=== PATIENT | male | born 1955 | race Caucasian/White ===

== ENCOUNTER 2019-01-15 10:06 | Outpatient (CLI) | payer MEDICARE ==
--- NOTE | 2019-01-15 10:43 | RAD ---
THORACIC SPINE FIVE VIEWS: Indications: Mid and upper back pain. FINDINGS: Thoracic vertebrae maintain normal height and alignment as seen in the sagittal projection. Mild dege nerative osteophytes are seen through the thoracic vertebrae. No blastic or lytic lesion identified. IMPRESSION: There are mild degenerative changes of the thoracic spine. No acute abnormality. POS: [facility]
== END 2019-01-15 10:07 | disposition home or self-care (01) ==
LOC: SCSRAD 10:06
PROVIDERS: ATTEND Family Medicine
DX: M54.6 Pain in thoracic spine (principal); M47.814 Spondylosis without myelopathy or radiculopathy, thoracic region
CPT/HCPCS: 72072

== ENCOUNTER 2019-02-03 11:13 | Outpatient (CLI) | payer MEDICARE ==
--- NOTE | 2019-02-03 11:51 | RAD ---
FXR Knee Lt 4 View STANDARD History: [Left knee pain. M 25.562] Comparison: None. Findings: Mild medial compartment joint space narrowing. Moderate-sized tricompartment osteophytes, g reatest in the medial compartment and patellofemoral compartments. No acute fracture or malalignment. Trace joint effusion. Impression: Moderate medial and patellofemoral compartment degenerative disease. No acute abnormality .
== END 2019-02-03 11:14 | disposition home or self-care (01) ==
LOC: SCSRAD 11:13
PROVIDERS: ATTEND Family Medicine
DX: M25.562 Pain in left knee (principal); M17.12 Unilateral primary osteoarthritis, left knee

== ENCOUNTER 2019-03-31 14:46 | Emergency (ER) | payer MEDICARE ==
[2019-03-31] MEDS ORDERED: Ketorolac Tromethamine 30 MG/ML VIAL ONE (15:14)
[2019-03-31] MEDS ORDERED: Diazepam 5 MG TAB ONE (15:14)
[2019-03-31] MEDS ORDERED: Acetaminophen 500 MG TAB ONE (15:14)
== END 2019-03-31 16:00 | disposition home or self-care (01) ==
LOC: SCSER 14:46
DX: M54.5 Low back pain (principal); I10 Essential (primary) hypertension; E78.5 Hyperlipidemia, unspecified; Z79.899 Other long term (current) drug therapy
CPT/HCPCS: J1885

== ENCOUNTER 2019-04-01 08:12 | Inpatient (IN) | payer MEDICARE ==
[2019-04-01] MEDS ORDERED: Ketorolac Tromethamine 30 MG/ML VIAL ONE (08:36)
[2019-04-01] MEDS ORDERED: Morphine 4 MG/ML VIAL ONE ×2 (08:36→14:12)
[2019-04-01] MEDS ORDERED: ISOVUE-370 76%-LOCM 1 ML ONE (09:08)
[2019-04-01] MEDS ORDERED: Gadobenate Dimeglumine 529 MG/1 ML (20ML VIAL) ONE (09:09)
--- NOTE | 2019-04-01 09:27 | CT ---
CT lumbar spine history: Back pain. Axial images are obtained with coronal and sagittal reconstructions. Vacuum disc changes with broad-based disc bulges seen at L4-5 and L5-S1. Disc degenerative changes ar e present at these levels. No evidence of acute lumbar spine abnormality seen. IMPRESSION: no evidence of acute lumbar spine fractures or bony lesions.
--- NOTE | 2019-04-01 09:30 | CT ---
Noncontrast enhanced CT thoracic spine: HISTORY: 63-year-old with lower to mid back pain. Axial images are obtained with coronal and sagittal reconstructions FINDINGS: There is partial compression fracture of the T9 vertebral body. There is near complete replacement of the T9 vertebral body as well as the left T9 pedicle extending into the posterior elements of the T9 vertebral level. The bones of this vertebral level appear to been replaced by soft tissue material which is expanding and destroying the T9 vertebra and left pedicle. This is concerning for metastatic disease. There appears to be compression of the thecal sac and severe spinal stenosis due to the soft tissue component of the T9 vertebra which extends posteriorly compressing the thecal sac and spinal cord. IMPRESSION: Expansile lytic T9 lesion. Neurosurgical consultation is recommended. Findings called to Dr. Lopez at 9:29 AM on 04/01/2019. Code CR Transcribed Date/Time: 04/01/2019 9:51 AM
[2019-04-01 10:15] LABS: #Basophils 0.1 thou/uL (0.0-0.2); #Lymphocytes 1.2 thou/uL (1.20-3.40); #Monocytes 0.7 thou/uL (0.11-0.59); #Neutrophils 11.5 thou/uL (1.40-6.50); %Basophils 0.6 % (0.0-1.0); %Eosinophils 0.1 % (0.0-10.0); %Lymphocytes 8.6 % (21.0-51.0); %Monocytes 5.3 % (0.0-10.0); %Neutrophils 85.3 % (42.0-75.0); Hemoglobin 14.3 g/dL (14.0-18.0); Mean Corpuscular HGB CONC 33.4 g/dL (32.0-36.0); Mean Corpuscular Hemoglobin 30.6 pg (27.0-31.0); Mean Corpuscular Volume 91.5 fL (78.0-98.0); Platelet Count 333 thou/uL (130-400); RBC Distribution Width 11.8 % (11.5-14.5); Red Blood Cell (RBC) Count 4.69 mill/uL (4.70-6.10); White Blood Cell (WBC) Count 13.5 thou/uL (4.8-10.8)
[2019-04-01 10:23] LABS: PTT 25.9 SEC (22.9-36.1); Prothrombin Time 13.5 SEC (12.0-14.7)
[2019-04-01 10:27] LABS: Anion Gap 14 mmol/L (10-20); BUN (Urea Nitrogen) 14 mg/dL (8.4-25.7); Calc. Creatinine Clearance 0 mL/min (70-130); Calcium 10.7 mg/dL (7.8-10.44); Carbon Dioxide 27 mmol/L (23-31); Chloride 103 mmol/L (98-107); Estimated GFR-MDRD Greater than 90; Glucose 120 mg/dL (80-115); Potassium 3.9 mmol/L (3.5-5.1); Sodium 140 mmol/L (136-145)
--- NOTE | 2019-04-01 12:31 | PDOC.GSCN ---
Surgery Consult: Results - Labs Result Diagrams: 04/01/19 10:08 04/01/19 10:08 Lab results: Laboratory Results WBC 13.5 thou/uL (4.8-10.8) H 04/01/19 10:08 RBC 4.69 mill/uL (4.70-6.10) L 04/01/19 10:08 Hgb 14.3 g/dL (14.0-18.0) 04/01/19 10:08 Hct 42.9 % (42.0-52.0) 04/01/19 10:08 MCV 91.5 fL (78.0-98.0) 04/01/19 10:08 MCH 30.6 pg (27.0-31.0) 04/01/19 10:08 MCHC 33.4 g/dL (32.0-36.0) 04/01/19 10:08 RDW 11.8 % (11.5-14.5) 04/01/19 10:08 Plt Count 333 thou/uL (130-400) 04/01/19 10:08 MPV 7.0 fL (7.4-10.4) L 04/01/19 10:08 Neutrophils % 85.3 % (42.0-75.0) H 04/01/19 10:08 Lymphocytes % 8.6 % (21.0-51.0) L 04/01/19 10:08 Monocytes % 5.3 % (0.0-10.0) 04/01/19 10:08 Eosinophils % 0.1 % (0.0-10.0) 04/01/19 10:08 Basophils % 0.6 % (0.0-1.0) 04/01/19 10:08 Neutrophils # 11.5 thou/uL (1.40-6.50) H 04/01/19 10:08 Lymphocytes # 1.2 thou/uL (1.20-3.40) 04/01/19 10:08 Monocytes # 0.7 thou/uL (0.11-0.59) H 04/01/19 10:08 Eosinophils # 0.0 thou/uL (0.0-0.7) 04/01/19 10:08 Basophils # 0.1 thou/uL (0.0-0.2) 04/01/19 10:08 PT 13.5 SEC (12.0-14.7) 04/01/19 10:08 INR 1.0 04/01/19 10:08 APTT 25.9 SEC (22.9-36.1) 04/01/19 10:08 Sodium 140 mmol/L (136-145) 04/01/19 10:08 Potassium 3.9 mmol/L (3.5-5.1) 04/01/19 10:08 Chloride 103 mmol/L (98-107) 04/01/19 10:08 Carbon Dioxide 27 mmol/L (23-31) 04/01/19 10:08 Anion Gap 14 mmol/L (10-20) 04/01/19 10:08 BUN 14 mg/dL (8.4-25.7) 04/01/19 10:08 Creatinine 0.72 mg/dL (0.7-1.3) 04/01/19 10:08 Estimated GFR (MDRD) Greater than 90 04/01/19 10:08 Glucose 120 mg/dL (80-115) H 04/01/19 10:08 Calcium 10.7 mg/dL (7.8-10.44) H 04/01/19 10:08
[2019-04-01] MEDS ORDERED: Lorazepam 2 MG/ML VIAL ONE (12:34)
--- NOTE | 2019-04-01 12:40 | PDOC.GSCN ---
Surgery Consult: HPI - Consult details Date: 04/01/19 Time: 11:00 History of present illness: 04/01/19 12:35 patient is a 63 yo male presenting with centralized back pain since january, he was treated with PT and pain improved. of last week patient had severe back pain following a sneeze which progressively worsened until he presented to the ER yesterday. He was d/c and then returned to the ER today in [facility]. Pain is worse on back extension with anterior radiation and improved by laying supine. associated symptoms include increasing nocturia over the last 4 days. No bowel/bladder incontinence, parasthesias, or paralysis Surgery Consult: ROS - Review of Systems Gastrointestinal: denies: fecal incontinence Musculoskeletal: reports: limited range of motion. denies: muscle weakness, neck pain, numbness, radiating pain into limb, tingling Neurologial: denies: numbness, paresthesias, radicular pain Surgery Consult: [facility] Past Medical History: HTN hemachromatosis Past Surgical History: knee arthroplasty X3 for torn meniscus - Past Family History Pertinent family history: mother of lung cancer Surgery Consult: Exam - Vital signs Vital signs: BP 173/112 otherwise unremarkable - Physical Exam General: moderate pain Neurologic: normal coordination, normal sensation (CN 2-12 intact and sym bilaterally, strength 5/5 UE/LE sensation intact and sym bilaterally.) Surgery Consult: Meds - Allergies Allergies/Adverse Reactions: Allergies Allergy/AdvReac Type Severity Reaction Status Date / Time Penicillins Allergy Verified 04/01/19 20:15 Surgery Consult: Results - Labs Result Diagrams: 04/02/19 05:34 04/02/19 05:34 Lab results: Laboratory Results WBC 13.5 thou/uL (4.8-10.8) H 04/01/19 10:08 RBC 4.69 mill/uL (4.70-6.10) L 04/01/19 10:08 Hgb 14.3 g/dL (14.0-18.0) 04/01/19 10:08 Hct 42.9 % (42.0-52.0) 04/01/19 10:08 MCV 91.5 fL (78.0-98.0) 04/01/19 10:08 MCH 30.6 pg (27.0-31.0) 04/01/19 10:08 MCHC 33.4 g/dL (32.0-36.0) 04/01/19 10:08 RDW 11.8 % (11.5-14.5) 04/01/19 10:08 Plt Count 333 thou/uL (130-400) 04/01/19 10:08 MPV 7.0 fL (7.4-10.4) L 04/01/19 10:08 Neutrophils % 85.3 % (42.0-75.0) H 04/01/19 10:08 Lymphocytes % 8.6 % (21.0-51.0) L 04/01/19 10:08 Monocytes % 5.3 % (0.0-10.0) 04/01/19 10:08 Eosinophils % 0.1 % (0.0-10.0) 04/01/19 10:08 Basophils % 0.6 % (0.0-1.0) 04/01/19 10:08 Neutrophils # 11.5 thou/uL (1.40-6.50) H 04/01/19 10:08 Lymphocytes # 1.2 thou/uL (1.20-3.40) 04/01/19 10:08 Monocytes # 0.7 thou/uL (0.11-0.59) H 04/01/19 10:08 Eosinophils # 0.0 thou/uL (0.0-0.7) 04/01/19 10:08 Basophils # 0.1 thou/uL (0.0-0.2) 04/01/19 10:08 PT 13.5 SEC (12.0-14.7) 04/01/19 10:08 INR 1.0 04/01/19 10:08 APTT 25.9 SEC (22.9-36.1) 04/01/19 10:08 Sodium 140 mmol/L (136-145) 04/01/19 10:08 Potassium 3.9 mmol/L (3.5-5.1) 04/01/19 10:08 Chloride 103 mmol/L (98-107) 04/01/19 10:08 Carbon Dioxide 27 mmol/L (23-31) 04/01/19 10:08 Anion Gap 14 mmol/L (10-20) 04/01/19 10:08 BUN 14 mg/dL (8.4-25.7) 04/01/19 10:08 Creatinine 0.72 mg/dL (0.7-1.3) 04/01/19 10:08 Estimated GFR (MDRD) Greater than 90 04/01/19 10:08 Glucose 120 mg/dL (80-115) H 04/01/19 10:08 Calcium 10.7 mg/dL (7.8-10.44) H 04/01/19 10:08 - Radiology Interpretation Other Additional comments: non contrast CT of T spine shows mass in vertebral body of T9 with ext into L pedicle, suspicious for metastasis Surgery Consult: A/P - Problem (1) vertebral body mass Current Visit: Yes Status: Acute - Plan Plan: -T spine MRI with and without contrast -admit for oncology workup and pain management -consulted with Dr. Wheeler and Luna Montez
--- NOTE | 2019-04-01 14:01 | MRI ---
PRE AND POSTCONTRAST ENHANCED MRI IMAGES THORACIC SPINE: HISTORY: Thoracic pain. FINDINGS: Multiplanar multisequence pre and postcontrast enhanced MRI images demonstrate essential replacement of the T9 vertebral body by heterogeneously enhancing soft tissue mass. There is a large retropulsed soft tissue component measuring 1.8 cm superior inferiorly and approximately 10 mm anteri or posteriorly. This retropulsed fragment compresses the thecal sac. The vertebral body is diffusely enhancing. There is extension into the left T9 pedicle which is also expanded. There is mar ked narrowing of the left T9-10 neural foramen. There is also some heterogeneity seen in the superior endplate of T11. This also is concerning for a metastatic lesion much less pronounced than the T9 lesion. Differential diagnoses includes metastatic disease. IMPRESSION: Extensive replacement of the T9 vertebral body with a pathologic fracture compressing the thecal sac and spinal cord at T9. There also appears to be some signal abnormality in the superior endplate of T11. Transcribed Date/Time: 04/01/2019 2:05 PM
[2019-04-01 15:40] VITALS: BMI 28.0
[2019-04-01] MEDS ORDERED: Ondansetron ODT 4 MG TAB PO PRN (18:32)
[2019-04-01] MEDS ORDERED: Acetaminophen 650 MG Suppository PR PRN (18:32)
[2019-04-01] MEDS ORDERED: Ondansetron PF 4 MG/2 ML Vial IVP PRN (18:32)
[2019-04-01] MEDS: Morphine 2 MG/ML SYRINGE SLOW IVP PRN ×2 (18:59→22:19)
[2019-04-01] MEDS: Sodium Chloride 0.9% 1,000 ML IV SCH (19:00)
[2019-04-01 19:38] LABS: INR-International Normal Ratio 1.1; PTT 30.4 SEC (22.9-36.1); Prothrombin Time 14.1 SEC (12.0-14.7)
[2019-04-01 19:53] LABS: ALT (SGPT) 24 U/L (8-55); AST (SGOT) 19 U/L (5-34); Albumin 4.1 g/dL (3.4-4.8); Alkaline Phosphatase 111 U/L (40-150); Bilirubin, Direct 0.3 mg/dL (0.1-0.3); Bilirubin, Total 0.7 mg/dL (0.2-1.2); CK (CPK) 54 U/L (30-200); Protein, Total 7.9 g/dL (5.8-8.1)
[2019-04-01 20:04] LABS: Lipase Less than 32 U/L (8-78)
[2019-04-01] MEDS: Famotidine/PF 20 mg/2ml Vial SLOW IVP SCH (20:16)
[2019-04-01] MEDS: Atorvastatin Calcium 10 MG TAB PO SCH (20:35)
[2019-04-01] MEDS: Amlodipine 10 MG TAB PO SCH (20:35)
--- NOTE | 2019-04-01 23:21 | CT ---
CTA CHEST WITH CONTRAST: Date: 04/01/19 Multiple axial tomograms obtained through the chest with IV enhancement. INDICATION: Low oxygen saturation. Elevated D-Dimer. Chest pain. FINDINGS: Pulmonary arteries show adequate opacification. There is no evidence of pulmonary embolus identified. Review of lung goetz reveals a soft tissue mass density measuring 4.0 cm along the fissure right upp er lobe. This could represent an area of confluent consolidation; however, neoplasm cannot be exclude d. Close follow-up is recommended. There are small bilateral pleural effusions with mild bibasilar atelectasis, slightly more prominent on the right. Nonspecific mediastinal and hilar lymph nodes. Images through upper abdomen unremarkabl e. Evaluation of the bones show a lytic process involving the T10 vertebra with loss of height and retro pulsion. There is a soft tissue component. There is compression of the thecal sac and impingement on the cord resulting in moderate to severe central canal stenosis. IMPRESSION: 1. No evidence of pulmonary embolus. 2. Mass-like density in the right upper lobe along the fissure which is suspicious for neoplasm. 3. There is a lytic destructive process involving the T10 vertebra with soft tissue component and re tropulsion resulting in central canal stenosis. This finding would indicate a malignant process, prob ably metastasis. POS: [facility]
--- NOTE | 2019-04-01 23:51 | HP ---
CHIEF COMPLAINT: Intractable back pain. HISTORY OF PRESENT ILLNESS: is a pleasant 63-year-old man, with a history of ongoing progressively worsening back pain dating back to January 2019. The patient states he recalls a moment when he may have coughed or sneezed and had sudden severe mid thoracic back pain. Since that time, he reports having ongoing issues with back pain and being sent for physical therapy with some improvement following exercises and manipulations. The patient states every once in a while, the back pain is exacerbated suddenly and then improves. He had another episode of worsening on last week and states he again began to have another flare of his back pain on Sunday. He had mild improvement after going in for physical therapy, but his pain became more severe yesterday prompting him to go to the ER. He was seen and was sent home with advice to take Tylenol but had worsening pain this morning. He returned to the ER and this time underwent imaging including a CT scan of the thoracic and lumbar spine, which has demonstrated an expansile lytic T9 lesion. He was given morphine 8 mg and later on Toradol. The patient states his pain has been much better controlled as long as he lays flat and does not attempt to get up out of bed. He denies having any weakness, numbness, or tingling in any of his upper or lower extremities. He also denies having any urinary or bowel incontinence. No saddle anesthesia/paresthesia. Denies any lower extremity weakness. Overall, his only complaint is that of back pain with occasional spasming in the muscles of his back, mostly on the left, but at times on the right with occasional shooting pain down the left and right leg. The patient underwent an MRI of the spine and this has shown extensive replacement of the T9 vertebral body with a pathologic fracture compressing the thecal sac and spinal cord at T9. He was felt to possibly have metastases. He has been transferred and being admitted for further management of his back pain and investigations. Apparently, case has been discussed with Neurosurgery who advised Oncology consultation. REVIEW OF SYSTEMS: The patient states he has had significant weight loss with a total of 35 pounds loss in the last 10 weeks, which he attributes to a drastic change in his diet for intentional weight loss. He denies having any nausea, vomiting, or lack of appetite. Denies having any changes with his bowels except for occasional constipation attributed to reduced appetite in recent days or analgesics needed for control of his back pain. He denies having any again changes with sensation or weakness in any of his extremities. Also denies any loss of bladder or bowel incontinence; however, in the last couple of days, he has noted increased urinary frequency at night. Denies having any hematuria or dysuria. He has no issues with blood in the stools. Has not noted any thin caliber stools. No straining with bowel movements. No abdominal pain or cramping. No chest pain, palpitations, or shortness of breath. Denies any fevers, chills, or sweats. No headaches or dizziness. All other review of systems are negative. The patient did mention occasional pleuritic-type chest pain described as "sharp stabs" on his right lower lateral chest with deep inspiration. Denies any shortness of breath, cough, or hemoptysis. ALLERGIES: PENICILLIN. CURRENT MEDICATIONS: 1. Zantac. 2. Diclofenac. 3. Fish oil. 4. Multivitamin. 5. Atorvastatin. 6. Amlodipine. 7. Losartan. PAST MEDICAL HISTORY: 1. Hypertension. 2. Hypercholesterolemia. 3. Chronic back pain. PAST SURGICAL HISTORY: 1. Bilateral knee surgery. 2. Right shoulder surgery. 3. Right elbow surgery. SOCIAL HISTORY: The patient drinks alcohol occasionally on the weekends. Denies any illicit drug use. He also reports smoking occasionally in his 20s, but quit since then. PHYSICAL EXAMINATION: GENERAL: The patient appears well developed, well nourished, and is in no acute distress. He is resting comfortably, lying flat on the bed. VITAL SIGNS: Temperature 98.7, pulse 75, respirations 18, blood pressure 146/84, O2 saturation 93% on room air. HEENT: Normocephalic and atraumatic. Pupils are equal, round, and reactive to light. Sclerae are without icterus. Oropharynx is notable for dry mucosa with slight cheilitis of the lower lip. NECK: Supple without lymphadenopathy. LUNGS: Clear bilaterally. CARDIAC: Regular rate and rhythm. ABDOMEN: Soft, nontender, nondistended. Normoactive bowel sounds present. No guarding or rigidity. EXTREMITIES: No lower leg swelling or edema. MUSCULOSKELETAL: The patient with tenderness to the mid back. NEUROLOGIC: Power and sensation fully intact in upper and lower extremities. Able to straight leg raise against resistance and passive straight leg raise does not cause back pain. Full range of motion in all extremities. Reflexes intact. Alert and oriented x3. SKIN: No rash or jaundice. LABORATORY DATA: White blood count 13.5, hemoglobin 14.3, hematocrit 42.9, platelets 333. PT 13.5, INR 1.0, PTT 25.9. Sodium 140, potassium 3.9, chloride 103, anion gap 14, BUN 14, creatinine 0.72, GFR greater than 90, glucose 120, calcium 10.7. IMAGING DATA: As mentioned above in HPI. IMPRESSION AND PLAN: is a pleasant 63-year-old man being admitted for management of the following. 1. Back pain. The patient noted on imaging to have a lytic lesion/fracture involving vertebral body of T9 suspicious for metastasis. At present, his pain is under control. We will continue Toradol p.r.n. for [id number] pain and morphine 2 mg q.4 hours p.r.n. for severe back pain. At present, the patient wishes to avoid using any narcotics unless necessary due to fear of becoming constipated. Apparently, case has been discussed with Dr. Wheeler and Luna Montez. Oncology consult placed. 2. Leukocytosis. The patient afebrile. He did mention urinary frequency in the last 2 days. We will obtain urinalysis to rule out urine infection. We will add lactic acid and procalcitonin to labs. We will obtain LFTs as well. Continue to monitor for now. 3. Low saturations. The patient with low sats ranging from 90% to 93% on room air. He did mention occasional right lower pleuritic type chest pain with deep inspiration which he has noticed in the last couple of days. The patient has been more sedentary than normal due to the back pain. We will obtain a D-dimer, likely to be elevated given metastases and will request CT angiogram of the chest to rule out PE. 4. Hypertension. Resume home medications and monitor blood pressure. 5. Gastrointestinal prophylaxis. 6. Constipation. Senna p.r.n. and MiraLAX daily. Hold if he develops loose stools. 7. Deep venous thrombosis prophylaxis with mechanical SCDs. 8. Full code status. His surrogate decision maker would be his , Cinthia Hopkins. The patient's case was discussed with Dr. Whalen, who agrees with plan of care as described above. Job ID: [id number]
[2019-04-02] MEDS: Ketorolac Tromethamine 30 MG/ML VIAL IVP SCH ×5 (00:04→23:58)
[2019-04-02] MEDS: Morphine 2 MG/ML SYRINGE SLOW IVP PRN ×3 (02:51→10:27)
[2019-04-02 05:17] LABS: Bilirubin Negative (Negative); Blood, Urine Negative (Negative); Clarity CLEAR (Clear); Glucose, Urine (Dipstick) Negative (Negative); Leukocyte Negative (Negative); Nitrite Negative (Negative); Protein, Urine (Dipstick) Negative (Neg-Trace); Specific Gravity, Urine 1.044 (1.002-1.036); Urobilinogen 0.2 mg/dL (0.2-1.0); pH, Urine 5.5 (5.0-9.0)
[2019-04-02 05:29] LABS: Urine Culture Reflex No No
[2019-04-02 05:59] LABS: #Eosinphils 0.1 thou/uL (0.0-0.7); #Lymphocytes 1.5 thou/uL (1.20-3.40); #Monocytes 1.2 thou/uL (0.11-0.59); #Neutrophils 6.7 thou/uL (1.40-6.50); %Basophils 0.2 % (0.0-1.0); %Eosinophils 1.3 % (0.0-10.0); %Monocytes 12.9 % (0.0-10.0); %Neutrophils 69.5 % (42.0-75.0); Hemoglobin 13.6 g/dL (14.0-18.0); Mean Corpuscular HGB CONC 32.7 g/dL (32.0-36.0); Mean Corpuscular Hemoglobin 30.8 pg (27.0-31.0); Mean Corpuscular Volume 94.2 fL (78.0-98.0); Mean Platelet Volume 7.2 fL (7.4-10.4); Platelet Count 306 thou/uL (130-400); RBC Distribution Width 11.4 % (11.5-14.5); White Blood Cell (WBC) Count 9.6 thou/uL (4.8-10.8)
[2019-04-02 06:16] LABS: ALT (SGPT) 20 U/L (8-55); AST (SGOT) 16 U/L (5-34); Albumin 3.7 g/dL (3.4-4.8); Alkaline Phosphatase 104 U/L (40-150); Anion Gap 13 mmol/L (10-20); BUN (Urea Nitrogen) 15 mg/dL (8.4-25.7); Bilirubin, Total 0.6 mg/dL (0.2-1.2); Calc. Creatinine Clearance 138 mL/min (70-130); Calcium 10.1 mg/dL (7.8-10.44); Carbon Dioxide 27 mmol/L (23-31); Chloride 102 mmol/L (98-107); Estimated GFR-MDRD Greater than 90; Globulin 3.6 g/dL (2.4-3.5); Glucose 98 mg/dL (80-115); Potassium 3.7 mmol/L (3.5-5.1); Protein, Total 7.3 g/dL (5.8-8.1); Sodium 138 mmol/L (136-145)
[2019-04-02] MEDS: Losartan 25 MG TAB PO SCH (08:42)
[2019-04-02] MEDS: Famotidine/PF 20 mg/2ml Vial SLOW IVP SCH ×2 (08:42→20:13)
[2019-04-02] MEDS ORDERED: Amlodipine 10 MG TAB PO SCH (09:00)
[2019-04-02] MEDS ORDERED: Atorvastatin Calcium 10 MG TAB PO SCH (09:00)
[2019-04-02] MEDS: Sodium Chloride 0.9% 1,000 ML IV SCH ×2 (09:11→20:25)
[2019-04-02] MEDS: Polyethylene Glycol 3350 17 GM Packet PO SCH (09:13)
[2019-04-02] MEDS ORDERED: Morphine 4 MG/ML VIAL SLOW IVP SCH ×2 (11:45→13:45)
--- NOTE | 2019-04-02 12:19 | PRG ---
DATE OF SERVICE: 04/02/2019 I agree with consultation note by Annabel Marie MS3 on 04/01/2019. The patient presented recently for increase in mid back pain, which began gradually in January, but became significant over the weekend. Describes severe sharp stabbing pain in his mid back region. He has no classic radicular features, numbness, tingling, or weakness. Denies any bowel or bladder issues. His symptoms are significantly increased with standing, walking, and better when he lays flat. He had an MRI of the thoracic spine, which shows expansile lesion at T9 causing some central stenosis at this level, suspicious for a metastatic lesion. There is also some evidence of metastatic lesion at T11, but this is not causing any compressive abnormalities at this time. CT of the chest revealed a right-sided lung mass, suspicious for neoplasm. Oncology has been consulted and there are plans or CT guided biopsy of this lesion. On my exam this morning, the patient appears comfortable, lying flat in the bed. He has free active range of motion of all extremities. No focal motor weakness or reflex asymmetry. We tried to move or adjust the patient for just sit him up in bed, he has severe pain. With regard to the T9 lesion, we will fit the patient for TLSO brace, considering the vertebral body destruction. We will also ask Pain Management to get involved for assistance in his pain. We are being assisted as well with Oncology and we will ask Radiation Oncology as well for their thoughts on possible radiation oncology treatments for this lesion. No plans for acute NS intervention at this time. I have discussed this plan with Dr. Wheeler, who is in agreement. Job ID: [id number] MTDD
[2019-04-02] MEDS: Dexamethasone 4 mg/ml Vial SLOW IVP SCH ×3 (12:24→23:58)
[2019-04-02] MEDS ORDERED: Acetaminophen 1,000 MG in Premix Bag 1 BAG IVPB SCH (12:45)
[2019-04-02] MEDS ORDERED: Sodium Bicarbonate 2.5 MEQ/5 ML VIAL ONE (13:58)
--- NOTE | 2019-04-02 14:11 | PDOC.PN ---
- Subjective Encounter Start Date: 04/02/19 Encounter Start Time: 07:20 - Objective Resuscitation Status - Order Detail: 04/01/19 18:32 Resuscitation Status Routine Co-Sign Provider: Resuscitation Status: FULL: Full Resuscitation MAR Reviewed: Yes Vital Signs & Weight: Vital Signs (12 hours) Temp Pulse Resp BP Pulse Ox 04/02/19 12:50 99.2 F 89 16 137/81 92 L 04/02/19 08:23 98.5 F 88 16 144/83 H 93 L 04/02/19 08:00 93 L 04/02/19 04:42 98.5 F 84 16 151/85 H 92 L Weight Weight 190 lb 5 oz I&O: 04/01/19 04/02/19 04/03/19 06:59 06:59 06:59 Intake Total 100 Output Total 800 Balance -700 Result Diagrams: 04/02/19 05:34 04/02/19 05:34 Additional Labs: Labs reviewed by me Phys Exam - Physical Examination Constitutional: NAD HEENT: moist MMs, sclera anicteric, oral pharynx no lesions, 2+ tonsils Neck: no nodes, no JVD, supple, full ROM Respiratory: clear to auscultation bilateral Cardiovascular: RRR, no rub S1, S2 Gastrointestinal: soft, non-tender, no distention, positive bowel sounds Neurological: moves all 4 limbs Psychiatric: normal affect, A&O x 3 Dx/Plan (1) 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 Continue pain medications (2) Lung mass Code(s): R91.8 - OTHER NONSPECIFIC ABNORMAL FINDING OF LUNG FIELD Status: Acute Comment: Await biopsy (3) HTN (hypertension) Code(s): I10 - ESSENTIAL (PRIMARY) HYPERTENSION Status: Chronic Comment: continue amlodipine and losartan, monitor vital signs adn titrate antihypertensives as needed (4) Dyslipidemia Code(s): E78.5 - HYPERLIPIDEMIA, UNSPECIFIED Status: Chronic Comment: continue atorvastatin - Plan * . Review of Systems - Review of Systems Constitutional: negative: fever, chills, sweats, weakness, malaise Respiratory: negative: Cough, Shortness of Breath, SOB with Excertion, Pleuritic Pain, Wheezing Cardiovascular: negative: chest pain, palpitations, orthopnea, paroxysmal nocturnal dyspnea, edema, light headedness Gastrointestinal: negative: Nausea, Vomiting, Abdominal Pain, Diarrhea, Constipation, Melena, Hematochezia Genitourinary: negative: Dysuria, Frequency, Incontinence, Hematuria, Retention Musculoskeletal: Back Pain Skin: negative: Rash, Lesions, Mason, Bruising - Medications/Allergies Allergies/Adverse Reactions: Allergies Allergy/AdvReac Type Severity Reaction Status Date / Time Penicillins Allergy Verified 04/01/19 20:15 Medications: Current Medications Acetaminophen (Tylenol) 650 mg PO Q4H PRN PRN Reason: Headache/Fever/Mild Pain (1-3) Acetaminophen (Tylenol) 650 mg MO Q4H PRN PRN Reason: Headache/Fever/Mild Pain (1-3) Amlodipine Besylate (Norvasc) 10 mg PO HS [facility] Last Admin: 04/01/19 20:35 Dose: 10 mg Atorvastatin Calcium (Lipitor) 10 mg PO HS [facility] Last Admin: 04/01/19 20:35 Dose: 10 mg Dexamethasone (Decadron) 4 mg SLOW IVP Q6H [facility] Last Admin: 04/02/19 12:24 Dose: 4 mg Famotidine (Pepcid) 20 mg SLOW IVP Q12HR [facility] Last Admin: 04/02/19 08:42 Dose: 20 mg Sodium Chloride (Normal Saline 0.9%) 1,000 mls @ 75 mls/hr IV .[id number] [facility] Last Admin: 04/02/19 09:11 Dose: 1,000 mls Acetaminophen 1,000 mg/ Device 100 mls @ 400 mls/hr IVPB ONE [facility] Stop: 04/02/19 15:45 Morphine Sulfate 100 mg/ (Dextrose/Water) 100 mls @ 0 mls/hr IV INF [facility] Ketorolac Tromethamine (Toradol) 15 mg IVP Q6HR [facility] Stop: 04/06/19 23:59 Last Admin: 04/02/19 12:24 Dose: 15 mg Losartan Potassium (Cozaar) 50 mg PO DAILY [facility] Last Admin: 04/02/19 08:42 Dose: 50 mg Morphine Sulfate (Morphine) 4 mg SLOW IVP [facility] Stop: 04/02/19 21:00 Last Admin: 04/02/19 13:49 Dose: 4 mg Ondansetron HCl (Zofran Odt) 4 mg PO Q6H PRN PRN Reason: Nausea/Vomiting Ondansetron HCl (Zofran) 4 mg IVP Q6H PRN PRN Reason: Nausea/Vomiting Polyethylene Glycol (Miralax) 17 gm PO DAILY [facility] Last Admin: 04/02/19 09:13 Dose: Not Given Senna/Docusate Sodium (Senokot S) 2 tab PO BIDPRN PRN PRN Reason: Constipation Sodium Chloride (Flush - Normal Saline) 10 ml IVF Q12HR PRN PRN Reason: Saline Flush Sodium Chloride (Flush - Normal Saline) 10 ml IVF PRN PRN PRN Reason: Saline Flush
[2019-04-02] MEDS ORDERED: Sodium Chloride 0.9% 10 ML ONE (14:29)
[2019-04-02] MEDS ORDERED: Midazolam HCl 2 mg/2 ml Vial ONE (14:29)
--- NOTE | 2019-04-02 15:20 | CON ---
DATE OF CONSULTATION: 04/02/2019 CONSULTING PHYSICIAN: Patiist . REASON FOR CONSULTATION: Lung mass and metastatic lesion. HISTORY OF PRESENT ILLNESS: is a 63-year-old male, who presented to the hospital with subacute onset of back pain. He states that he has been hurting since January. Now, he got to the point where it is painful to walk. He can still walk without much problem. He had a workup, which showed a large metastatic lesion on T9 vertebra. He also has a right upper lobe lung mass. He has a very distant smoking history, having smoked between ages 16 and 23. He has no exposure history to speak of. He does have a family history of lung cancer in his mother, but he states his mother was a heavy smoker most of her life. He has had no hemoptysis or shortness of breath. PAST MEDICAL HISTORY: 1. Hemochromatosis. 2. Hypertension. 3. Hyperlipidemia. 4. Chronic back pain. PAST SURGICAL HISTORY: 1. Bilateral knee surgery. 2. Right shoulder surgery. 3. Right elbow surgery. SOCIAL HISTORY: Smoking history as outlined above. The patient very occasionally drinks alcohol. He is retired from sales. Again, has no exposure history. ALLERGIES: PENICILLIN. MEDICATIONS: Prior to admission, Zantac, diclofenac, fish oil, multivitamin, atorvastatin, amlodipine, losartan. REVIEW OF SYSTEMS: He has no fever, chills, nausea, vomiting, chest pain, hemoptysis, melena, hematochezia, hematuria, or dysuria. He has had intractable back pain and has had some difficulty walking. PHYSICAL EXAMINATION: VITAL SIGNS: Temperature 98.5, pulse 88, respirations 16, O2 saturation 93%, and blood pressure 144/83. GENERAL: He is awake and alert, and in no obvious distress, but does seem to be in discomfort from his back. HEENT: Pupils are reactive. Sclerae anicteric. Oropharynx clear. NECK: No palpable adenopathy. No JVD. No bruits. No thyromegaly. LUNGS: Clear without wheezing or rhonchi. CARDIAC: S1 and S2 regular without audible murmur. ABDOMEN: He has some pain to palpation in right upper quadrant, but I think this is from pressure applied through to his T9 lesion. EXTREMITIES: No clubbing, cyanosis, or edema. NEUROLOGIC: He can move lower extremities without much difficulty or pain. Sensation is fully intact throughout. LABORATORY DATA: White blood cell count 9.6, hematocrit 41.5, and platelet count 306. D-dimer 5.5, sodium 138, potassium 3.7, chloride 102, CO2 of 27, BUN 15, creatinine 0.6, and glucose 98. IMAGING STUDIES: I reviewed the CT of the chest in detail. He has a fairly substantial lesion in the right upper lobe, probably the most inferior portion of the right upper lobe. He also has the metastatic lesion. ASSESSMENT: Metastatic lung cancer with metastasis to the T-spine. RECOMMENDATIONS: Discussed with Radiology. We would like to try a CT needle biopsy of T9 lesion, so that we can prove metastatic disease and probably give a larger tissue sample for molecular genetics. The patient is agreeable to proceed. Job ID: [id number]
[2019-04-02] MEDS: Morphine Sulfate 100 MG in Dextrose 5% in Water 98 ML IV SCH (15:24)
--- NOTE | 2019-04-02 15:35 | CT ---
CT GUIDED T9 VERTEBRAL BODY BIOPSY: CLINICAL HISTORY: Lytic lesion of T9 vertebra. PROCEDURE: Informed consent was obtained and the patient was escorted to the procedural suite, placed in semipro ne position. Conscious sedation for a total of 45 minutes was performed, administered by the radiology nurse, with the patient consistently monitored throughout the duration of the exam in stabl e condition. The patient's skin was prepped and draped in a standard sterile fashion and topical anesthesia with buffered 1% lidocaine was performed. After a small skin incision was made, an 18-gaug e needle were advanced to the leading edge of the posterior left T9 vertebral body margin. After adequate placement was confirmed with CT fluoroscopic imaging, 3 subsequent core specimens were obtai soni via percutaneous biopsy. These were confirmed with CT fluoroscopic imaging and the specimens were submitted to the pathologist for adequacy. Specimens were deemed adequate for interpretation. Th erefore, all devices were then removed from the patient. No unexpected procedural complications were present. The patient was monitored in radiology holding i n stable condition prior to discharge with family member. IMPRESSION: Technically successful percutaneous T9 vertebral body biopsy. Pathology results are pending.
--- NOTE | 2019-04-02 16:11 | PRG ---
DATE OF SERVICE: 04/02/2019 SUBJECTIVE: The patient was seen and examined. The patient is a 63-year-old male, who had been having mid back pain since January of this year. This has become progressively agonizing and severe. Ultimately, he was evaluated in the emergency room yesterday. He has now had CT scan and MRI of the thoracic spine as well as CT of the chest, abdomen, and pelvis. The patient is neurologically intact and the pain that he is having is thoracic and now neurogenically mediated. The patient's imaging reveals an expansile lesion of the T9 vertebrae, undoubtedly metastasis. There is meaningful central stenosis. There is also a lesion at T11, which is much more modest, that likely also represents metastasis. CT of the chest reveals a lung lesion, consistent with neoplasm. IMPRESSION AND PLAN: Metastatic lung cancer. The T9 metastasis causing agonizing pain, but no neurologic deficit. I do not see a clear role for surgery here and I do not think surgery will alleviate any pain. The pain is likely related to instability from the lesion. With regard to the T9 lesion, we will fit him for a TLSO brace that will hopefully allow him to mobilize with less pain and we will also consult Pain Management. I expect that ultimately the treatment for the T9 and T11 lesions will be radiation therapy. Surgery will be reserved for any new neurologic deficit. With respect to the overall oncologic workup, I will defer to Oncology and Radiation Oncology for lung biopsy. Job ID: [id number]
--- NOTE | 2019-04-02 16:48 | CON ---
DATE OF CONSULTATION: REASON FOR CONSULT: Lung mass with T9 lesion. HISTORY OF PRESENT ILLNESS: is a pleasant 63-year-old gentleman, who has had progressively worse back pain since January of 2019. He had severe pain this past few days and presented to the emergency room in [place] for evaluation. He underwent a CT scan of the lumbar and thoracic spine. There was partial compression fracture of the T9 vertebral body. There was complete replacement of the T9 body and pedicle with a soft tissue mass. Severe spinal stenosis was noted. Neurosurgery was consulted, and is planning no surgical intervention. The patient has no neurological deficits. He had an elevated D-dimer in the emergency room, so underwent a CT angio of the chest. There was no evidence of pulmonary embolus. There was a mass-like density in the right upper lobe along the fissure. It was suspicious for malignancy. The patient has a remote history of smoking, quit over 40 years ago. He has had a 35-pound weight loss since January. Denies any shortness of breath. No chest pain. No abdominal discomfort. No numbness, tingling, or neurological deficits. No difficulty voiding or with BMs. He does complain of severe stabbing pain, and his thoracic region is 10/10. Of note, the patient has a history of hereditary hemochromatosis diagnosed in 1996. He has been compliant with phlebotomy, donating blood usually 4 to 5 times annually. He states his last ferritin was around 48. PAST MEDICAL HISTORY: 1. Hypertension. 2. High cholesterol. 3. Hemochromatosis. 4. Chronic back pain. PAST SURGICAL HISTORY: 1. Bilateral knee replacement. 2. Right shoulder surgery. 3. Right elbow surgery. ALLERGIES: TO PENICILLIN. HOME MEDICATIONS: 1. Norvasc 10 mg daily. 2. Atorvastatin 10 mg daily. 3. Diclofenac 50 mg b.i.d. 4. Losartan 50 mg daily. 5. MVI daily. 6. Zantac 150 mg b.i.d. FAMILY HISTORY: Mother had lung cancer. Sister had breast cancer. SOCIAL HISTORY: He is . Social drinker. No illicit drug use. Smoked occasionally in his 20s, none since. REVIEW OF SYSTEMS: Ten-point review of systems is negative, except for noted in HPI. PHYSICAL EXAMINATION: VITAL SIGNS: Temperature is 98.5, pulse is 88, respiratory rate is 16, BP is 144/83. He is 93% on room air. GENERAL: This is a well-developed, well-nourished male, in mild discomfort. HEENT: He is normocephalic and atraumatic. Pupils are equal and reactive to light. NECK: Supple. CV: Regular rate and rhythm. LUNGS: Clear anterior. ABDOMEN: Soft and nontender. Bowel sounds are positive. EXTREMITIES: No clubbing, cyanosis, or edema. SKIN: No rash. HEMATOLOGICAL: No petechiae or purpura. NEUROLOGICAL: Nonfocal. PSYCH: He is alert, oriented, and appropriate. PERTINENT LABS AND X-RAYS: Current WBCs are 9.6, hemoglobin 13.6, hematocrit 41.5, platelet count is 306,000, 69% neutrophils, 16% lymphocytes. PT is 14.1, INR is 1.1, and PTT is 30.4. D-dimer is 5.58. Sodium is 138, potassium is 3.7, chloride is 102, CO2 is 27, BUN is 15, creatinine is 0.65. Lactic acid is 1, calcium is 10.1, total bilirubin is 0.6, AST is 16, ALT is 20, alkaline phosphatase is 104, creatine kinase is 54, serum total protein is 7.3, albumin is 3.9, globulin is 3.6, lipase is less than 32, CEA is 11.19, prolactin is 0.18. Urine is negative. Radiology per HPI. ASSESSMENT: 1. Lung mass with likely metastatic disease with metastatic T9 lesion. 2. Severe intractable pain. DISCUSSION: The patient has been given morphine for pain. Anesthesia has been consulted for improved pain management. Dr. Briones has seen the patient, and in discussion, I agree that soft tissue mass at his T9 vertebral body is the less invasive point for a biopsy. CT-guided biopsy has been ordered. Discussed briefly types of lung cancer and various treatments including chemotherapy and immunotherapy. Further recommendations will be based on pathology and biomarkers. Case was discussed with Dr. Craft. We will also discuss with Dr. Gómez whether radiation to this T9 soft tissue mass will improve his pain. Thank you for the consult. Job ID: [id number]
[2019-04-02] MEDS: Atorvastatin Calcium 10 MG TAB PO SCH (20:12)
[2019-04-02] MEDS: Amlodipine 10 MG TAB PO SCH (20:13)
--- NOTE | 2019-04-03 00:24 | CON ---
DATE OF CONSULTATION: 04/02/2019 REASON FOR CONSULTATION: is a 63-year-old gentleman, who appears to have a stage IV lung carcinoma with metastasis to the spine with impending spinal cord compression. I was asked to see him to discuss his options with radiation therapy. HISTORY OF PRESENT ILLNESS: states that around January, he had a coughing episode, began experiencing back pain after that. The back pain would come and go, but never resolved. However, it was slowly worsening. He did start physical therapy for that, which helped a little, but then the pain continued to worsen. On , he had trouble getting out of bed because of the pain and subsequently again went to physical therapy, which did help some. By Sunday, the pain was much worse. He was seen in the emergency room and given pain medication. On Sunday, he returned to the emergency room, where he had a CT scan, which showed a mass involving the T9 vertebral body. He was subsequently admitted for further workup and evaluation. He did have an MRI of the thoracic spine, which showed a mass involving the T9 vertebral body with some compression and retropulsion in the T9 vertebral body. There was compression of the thecal sac and severe spinal stenosis due to the lesion at T9. This was concerning for metastatic disease. CT angiogram was performed, which showed a mass in the right lower lobe of the lung, measuring 4 cm. The lytic lesion was seen involving the T9 vertebral body. There were nonspecific mediastinal and hilar lymph nodes seen. He has been seen by Neurosurgery and Oncology. He is presently on a [employer] pump to control his pain, which is helping. He did undergo biopsy of the back earlier today with results of that currently pending. Presently, he denies any other areas of pain. He has no leg weakness or numbness. He has no bowel or bladder difficulties. His pain is fairly well controlled as long as he does not move around too much. He denies any shortness of breath, orthopnea, or cough. He has had a 35-pound weight loss over the past 10 weeks, which has been intentional by diet. His appetite has been good. He voices no other complaints. PAST MEDICAL HISTORY: 1. Hypertension. 2. Hypercholesterolemia. 3. Osteoarthritis. 4. Status post bilateral knee surgery. 5. Status post right shoulder surgery. 6. Status post right elbow surgery. MEDICATIONS: 1. Decadron. 2. Pepcid. 3. Toradol p.r.n. 4. Morphine. 5. Zofran. 6. Senokot. 7. MiraLAX. ALLERGIES: PENICILLIN, WHICH CAUSES AN UNKNOWN REACTION A CHILD. SOCIAL HISTORY: He smoked for 7 years, one-half pack per day, but has not smoked since age 23. He has no other tobacco use. He drinks 2 to 3 alcoholic beverages about 2 times per week. He is retired and lives in [place] with his . He does have family, who lives here in town also. FAMILY HISTORY: His mother at age 70 from lung cancer. His father at age 77 from pneumonia and also had heart disease. He has sister, who is still living with breast cancer. There is no other family history of lung cancer. REVIEW OF SYSTEMS: A 12-system review of systems is otherwise negative. PHYSICAL EXAMINATION: VITAL SIGNS: Height 5 feet 9 inches and weight 190 pounds. Blood pressure is 147/88, pulse is 83, respirations are 18, temperature is 98.9, and O2 saturation is 91% on room air. GENERAL: He is alert and oriented and in no apparent distress. He is well developed and well nourished. Karnofsky performance status is 70%. HEENT: Eyes; pupils are equal, round, and reactive to light. Extraocular movements are intact. ENT; oral cavity and oropharynx, normal without lesion or erythema. Palate elevates symmetrically. Gingiva is intact. NECK: Supple without cervical or supraclavicular adenopathy. No thyromegaly. Larynx is midline. LUNGS: Breathing nonlabored. Clear to auscultation. HEART: Regular rate and rhythm without murmur. No lower extremity edema. LYMPHATIC: No axillary or inguinal adenopathy. ABDOMEN: Bowel sounds are present. Soft, nontender, and nondistended without mass or hepatosplenomegaly. Liver percusses to normal size. SKIN: Without rash or purpura. NEUROLOGIC: Cranial nerves 2 through 12 are grossly intact. Motor strength is 5/5 in both upper and lower extremities in all muscle groups tested. Reflexes are normal and symmetrical. Gait was not tested. LABORATORY DATA: Biopsy is currently pending. CBC revealed a white blood cell count of 9600 with a hemoglobin of 13.6, hematocrit of 41.5, and platelet count of 306,000. Chemistry group showed normal-appearing electrolytes. Creatinine was normal with a GFR greater than 90. CEA was elevated at 11.19. Globulin was minimally elevated at 3.6. Total protein was normal at 7.3. DIAGNOSTIC DATA: Radiologic: MRI of the thoracic spine as well as CT scan of the thoracic and lumbar spine and CT angiogram were all personally reviewed. Again, he has a 4-cm right lower lobe lung mass. He has small bilateral pleural effusions and nonspecific mediastinal and hilar lymph nodes. He had a lytic process involving the T9 or T10 vertebral body. By MRI, this appears to be the T9 vertebral body. There is retropulsion of the soft tissue mass with severe thecal sac and spinal stenosis. This is compressing the spinal cord. ASSESSMENT: is a 63-year-old gentleman, who appears to have stage IV lung cancer with metastasis to the T9 vertebral body causing spinal stenosis and impending spinal cord compression. He does not have any signs or symptoms of spinal cord compression at the present time. His biggest difficulty is pain from his metastatic disease. Biopsy is currently pending. PLAN: I had a long discussion with regarding his diagnosis, prognosis, prognostic factors, and treatment options. We discussed the importance of obtaining a tissue biopsy, which has been done. He has been seen by Dr. Wheeler, Neurosurgery. I will discuss the case with Dr. Wheeler. If he is planning surgery, then we will allow him to intervene surgically and would likely recommend radiation therapy after his surgery. If he is not recommending surgery, then I would likely recommend that we somewhat urgently start radiation therapy. The logistics of radiation as well as the benefits and risks of treatment were discussed. Side effects would include, but not be limited to skin reaction, lower blood counts, fatigue, difficulty or pain with swallowing, weight loss, and small risk of damage to any structure, which receives radiation therapy. Time was taken to answer all of his questions regarding his treatment options. I do agree with the initiation of dexamethasone. If Dr. Wheeler is not planning on neurosurgical intervention, then we will likely proceed with radiation therapy tomorrow. Thank you for this interesting consultation. Job ID: [id number]
[2019-04-03] MEDS: Dexamethasone 4 mg/ml Vial SLOW IVP SCH ×3 (05:04→18:09)
[2019-04-03] MEDS: Ketorolac Tromethamine 30 MG/ML VIAL IVP SCH ×4 (05:04→23:57)
[2019-04-03 07:22] LABS: % Free PSA 16.4 % (.); Total PSA 2.2 ng/mL (0.0-4.0)
[2019-04-03] MEDS: Polyethylene Glycol 3350 17 GM Packet PO SCH (08:22)
[2019-04-03] MEDS: Famotidine/PF 20 mg/2ml Vial SLOW IVP SCH ×2 (08:23→20:34)
[2019-04-03] MEDS: Acetaminophen 325 MG TAB PO PRN ×2 (08:23→20:41)
[2019-04-03] MEDS: Losartan 25 MG TAB PO SCH (08:23)
--- NOTE | 2019-04-03 10:10 | PRG ---
DATE OF SERVICE: 04/03/2019 SUBJECTIVE: is doing as well as could be expected given the circumstances. He continues to have some back pain, but is well controlled by the morphine. OBJECTIVE: VITAL SIGNS: Temperature is 98.4, pulse 66, respirations 16, O2 saturation 91% on room air, blood pressure 141/82. HEENT: Unremarkable. NECK: No JVD. LUNGS: Clear to auscultation. CARDIAC: S1, S2 regular. ABDOMEN: Soft. EXTREMITIES: No edema. LABORATORY DATA: Sodium 138, potassium 3.7, BUN 15, creatinine 0.6, and glucose 98. CEA level was 11.1. ASSESSMENT: Presumed metastatic lung cancer. PLAN: We are awaiting results of the T9 biopsy that was done yesterday by Dr. Lynn. Further disposition based on that test result. Job ID: [id number]
[2019-04-03] MEDS: Sodium Chloride 0.9% 1,000 ML IV SCH (12:15)
--- NOTE | 2019-04-03 14:43 | PDOC.PN ---
- Subjective Encounter Start Date: 04/03/19 Encounter Start Time: 07:00 Pt seen for followup re: vertebral metastases. Pain is better. - Objective Resuscitation Status - Order Detail: 04/01/19 18:32 Resuscitation Status Routine Co-Sign Provider: Resuscitation Status: FULL: Full Resuscitation MAR Reviewed: Yes Vital Signs & Weight: Vital Signs (12 hours) Temp Pulse Resp BP Pulse Ox 04/03/19 12:15 98.2 F 78 16 142/83 H 92 L 04/03/19 08:32 91 L 04/03/19 07:55 98.4 F 66 16 141/82 H 91 L Weight Weight 190 lb 5 oz I&O: 04/02/19 04/03/19 04/04/19 06:59 06:59 06:59 Intake Total 100 1400 Output Total 800 800 Balance -700 600 Result Diagrams: 04/02/19 05:34 04/02/19 05:34 Additional Labs: Labs reviewed by me Phys Exam - Physical Examination Constitutional: NAD HEENT: moist MMs Neck: supple Respiratory: clear to auscultation bilateral Cardiovascular: RRR Gastrointestinal: soft Neurological: moves all 4 limbs Psychiatric: normal affect Dx/Plan (1) 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 Pain is better. Had vertebral bx yesterday, await path report. (2) Lung mass Code(s): R91.8 - OTHER NONSPECIFIC ABNORMAL FINDING OF LUNG FIELD Status: Acute Comment: Await path report from vertebral biopsy (3) HTN (hypertension) Code(s): I10 - ESSENTIAL (PRIMARY) HYPERTENSION Status: Chronic Comment: Improved control (4) Dyslipidemia Code(s): E78.5 - HYPERLIPIDEMIA, UNSPECIFIED Status: Chronic Comment: on atorvastatin - Plan plan discussed w/ family, DVT proph w/SCDs * . Review of Systems - Review of Systems Cardiovascular: negative: chest pain, palpitations, orthopnea, paroxysmal nocturnal dyspnea, edema, light headedness Gastrointestinal: negative: Nausea, Vomiting, Abdominal Pain, Diarrhea, Constipation, Melena, Hematochezia Musculoskeletal: Back Pain - Medications/Allergies Allergies/Adverse Reactions: Allergies Allergy/AdvReac Type Severity Reaction Status Date / Time Penicillins Allergy Verified 04/01/19 20:15 Medications: Current Medications Acetaminophen (Tylenol) 650 mg PO Q4H PRN PRN Reason: Headache/Fever/Mild Pain (1-3) Last Admin: 04/03/19 08:23 Dose: 650 mg Acetaminophen (Tylenol) 650 mg [place] Q4H PRN PRN Reason: Headache/Fever/Mild Pain (1-3) Amlodipine Besylate (Norvasc) 10 mg PO HS [facility] Last Admin: 04/02/19 20:13 Dose: 10 mg Atorvastatin Calcium (Lipitor) 10 mg PO HS [facility] Last Admin: 04/02/19 20:12 Dose: 10 mg Dexamethasone (Decadron) 4 mg SLOW IVP Q6H [facility] Last Admin: 04/03/19 12:09 Dose: 4 mg Famotidine (Pepcid) 20 mg SLOW IVP Q12HR [facility] Last Admin: 04/03/19 08:23 Dose: 20 mg Sodium Chloride (Normal Saline 0.9%) 1,000 mls @ 75 mls/hr IV .[id number] [facility] Last Admin: 04/03/19 12:15 Dose: 1,000 mls Morphine Sulfate 100 mg/ (Dextrose/Water) 100 mls @ 0 mls/hr IV INF [facility] Last Admin: 04/02/19 15:24 Dose: 100 mls Ketorolac Tromethamine (Toradol) 15 mg IVP Q6HR [facility] Stop: 04/06/19 23:59 Last Admin: 04/03/19 12:09 Dose: 15 mg Losartan Potassium (Cozaar) 50 mg PO DAILY [facility] Last Admin: 04/03/19 08:23 Dose: 50 mg Ondansetron HCl (Zofran Odt) 4 mg PO Q6H PRN PRN Reason: Nausea/Vomiting Ondansetron HCl (Zofran) 4 mg IVP Q6H PRN PRN Reason: Nausea/Vomiting Polyethylene Glycol (Miralax) 17 gm PO DAILY [facility] Last Admin: 04/03/19 08:22 Dose: 17 gm Senna/Docusate Sodium (Senokot S) 2 tab PO BIDPRN PRN PRN Reason: Constipation Sodium Chloride (Flush - Normal Saline) 10 ml IVF Q12HR PRN PRN Reason: Saline Flush Sodium Chloride (Flush - Normal Saline) 10 ml IVF PRN PRN PRN Reason: Saline Flush
[2019-04-03] MEDS: Morphine Sulfate 100 MG in Dextrose 5% in Water 98 ML IV SCH (19:34)
[2019-04-03] MEDS: Senokot S 8.6-50 MG TAB PO PRN (20:30)
[2019-04-03] MEDS: Amlodipine 10 MG TAB PO SCH (20:31)
[2019-04-03] MEDS: Atorvastatin Calcium 10 MG TAB PO SCH (20:31)
[2019-04-04] MEDS: Dexamethasone 4 mg/ml Vial SLOW IVP SCH ×5 (01:13→23:55)
[2019-04-04] MEDS: Sodium Chloride 0.9% 1,000 ML IV SCH ×3 (01:24→20:10)
[2019-04-04] MEDS: Ketorolac Tromethamine 30 MG/ML VIAL IVP SCH ×4 (06:02→23:55)
[2019-04-04] MEDS: Losartan 25 MG TAB PO SCH (08:44)
[2019-04-04] MEDS: Famotidine/PF 20 mg/2ml Vial SLOW IVP SCH ×2 (08:44→20:25)
[2019-04-04] MEDS: Polyethylene Glycol 3350 17 GM Packet PO SCH (08:45)
--- NOTE | 2019-04-04 10:21 | PRG ---
DATE OF SERVICE: 04/04/2019 SUBJECTIVE: Seems to be doing well, has no acute complaints. Pain is under good control. OBJECTIVE: VITAL SIGNS: Temperature 98.7, pulse 81, respirations 16, O2 saturation 95%, and blood pressure 150/92. HEENT: Unremarkable. NECK: No JVD. CHEST: Clear. CARDIAC: S1 and S2. Regular. ABDOMEN: Soft. EXTREMITIES: No edema. ASSESSMENT: Metastatic lung cancer-final biopsy pending. PLAN: Await pathology results. Job ID: [id number]
[2019-04-04] MEDS: Acetaminophen 325 MG TAB PO PRN ×2 (10:56→17:59)
[2019-04-04] MEDS: HYDROcodone/Acetaminophen 10/325 mg Tablet PO PRN (12:10)
[2019-04-04] MEDS ORDERED: fentaNYL 75 mcg/hour Patch TD SCH (14:00)
--- NOTE | 2019-04-04 14:59 | PDOC.PN ---
- Subjective Encounter Start Date: 04/04/19 Encounter Start Time: 07:00 Pt seen for followup re: vertebral metastasis. Feels better. Denies chest pain , shortness of breath, fevers or chills. Back pain is better. - Objective Resuscitation Status - Order Detail: 04/01/19 18:32 Resuscitation Status Routine Co-Sign Provider: Resuscitation Status: FULL: Full Resuscitation MAR Reviewed: Yes Vital Signs & Weight: Vital Signs (12 hours) Temp Pulse Resp BP BP Pulse Ox 04/04/19 13:28 84 18 172/92 H 96 04/04/19 11:16 98.5 F 80 18 140/84 95 04/04/19 08:00 98.7 F 81 16 150/92 H 95 04/04/19 04:00 97.4 F L 84 16 124/78 94 L Weight Weight 190 lb 5 oz I&O: 04/03/19 04/04/19 04/05/19 06:59 06:59 06:59 Intake Total 1400 1822.1 947.1 Output Total 800 1800 700 Balance 600 22.1 247.1 Result Diagrams: 04/02/19 05:34 04/02/19 05:34 Additional Labs: Labs reviewed by me Phys Exam - Physical Examination Constitutional: NAD HEENT: moist MMs Neck: supple Respiratory: clear to auscultation bilateral Cardiovascular: RRR Gastrointestinal: soft Neurological: moves all 4 limbs Psychiatric: normal affect Dx/Plan (1) 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 (2) Lung mass Code(s): R91.8 - OTHER NONSPECIFIC ABNORMAL FINDING OF LUNG FIELD Status: Acute Comment: Awaiting path report from vertebral biopsy (3) HTN (hypertension) Code(s): I10 - ESSENTIAL (PRIMARY) HYPERTENSION Status: Chronic Comment: BP high, add PRN IV hydralazine (4) Dyslipidemia Code(s): E78.5 - HYPERLIPIDEMIA, UNSPECIFIED Status: Chronic Comment: stable , on atorvastatin - Plan * . Review of Systems - Review of Systems Constitutional: negative: fever, chills, sweats, weakness, malaise Cardiovascular: negative: chest pain, palpitations, orthopnea, paroxysmal nocturnal dyspnea, edema, light headedness - Medications/Allergies Allergies/Adverse Reactions: Allergies Allergy/AdvReac Type Severity Reaction Status Date / Time Penicillins Allergy Verified 04/01/19 20:15 Medications: Current Medications Acetaminophen (Tylenol) 650 mg PO Q4H PRN PRN Reason: Headache/Fever/Mild Pain (1-3) Last Admin: 04/04/19 10:56 Dose: 650 mg Acetaminophen (Tylenol) 650 mg [place] Q4H PRN PRN Reason: Headache/Fever/Mild Pain (1-3) Hydrocodone Bitart/Acetaminophen ([place] 10/325) 2 tab PO [place]CALL PRN PRN Reason: transport for procedures/tests Last Admin: 04/04/19 12:10 Dose: 2 tab Amlodipine Besylate (Norvasc) 10 mg PO HS [facility] Last Admin: 04/03/19 20:31 Dose: 10 mg Atorvastatin Calcium (Lipitor) 10 mg PO HS [facility] Last Admin: 04/03/19 20:31 Dose: 10 mg Cyclobenzaprine HCl (Flexeril) 5 mg PO BIDPRN PRN PRN Reason: Muscle Spasm Dexamethasone (Decadron) 4 mg SLOW IVP Q6H [facility] Last Admin: 04/04/19 12:07 Dose: 4 mg Famotidine (Pepcid) 20 mg SLOW IVP Q12HR [facility] Last Admin: 04/04/19 08:44 Dose: 20 mg Fentanyl (Duragesic) 75 mcg TD Q3D [facility] Last Admin: 04/04/19 14:15 Dose: 75 mcg Sodium Chloride (Normal Saline 0.9%) 1,000 mls @ 75 mls/hr IV .[id number] [facility] Last Admin: 04/04/19 06:03 Dose: 1,000 mls Morphine Sulfate 100 mg/ (Dextrose/Water) 100 mls @ 0 mls/hr IV INF [facility] Last Admin: 04/03/19 19:34 Dose: 100 mls Ketorolac Tromethamine (Toradol) 15 mg IVP Q6HR [facility] Stop: 04/06/19 23:59 Last Admin: 04/04/19 12:04 Dose: 15 mg Losartan Potassium (Cozaar) 50 mg PO DAILY [facility] Last Admin: 04/04/19 08:44 Dose: 50 mg Ondansetron HCl (Zofran Odt) 4 mg PO Q6H PRN PRN Reason: Nausea/Vomiting Ondansetron HCl (Zofran) 4 mg IVP Q6H PRN PRN Reason: Nausea/Vomiting Polyethylene Glycol (Miralax) 17 gm PO DAILY [facility] Last Admin: 04/04/19 08:45 Dose: 17 gm Senna/Docusate Sodium (Senokot S) 2 tab PO BIDPRN PRN PRN Reason: Constipation Last Admin: 04/03/19 20:30 Dose: 2 tab Sodium Chloride (Flush - Normal Saline) 10 ml IVF Q12HR PRN PRN Reason: Saline Flush Last Admin: 04/03/19 20:35 Dose: 10 ml Sodium Chloride (Flush - Normal Saline) 10 ml IVF PRN PRN PRN Reason: Saline Flush Last Admin: 04/04/19 06:08 Dose: 10 ml
[2019-04-04] MEDS: hydrALAZINE 20 MG/ML VIAL SLOW IVP PRN (15:43)
[2019-04-04] MEDS: Cyclobenzaprine 10 MG TAB PO PRN (20:23)
[2019-04-04] MEDS: Atorvastatin Calcium 10 MG TAB PO SCH (20:24)
[2019-04-04] MEDS: Amlodipine 10 MG TAB PO SCH (20:24)
[2019-04-04] MEDS: Senokot S 8.6-50 MG TAB PO PRN (23:56)
[2019-04-05] MEDS: Dexamethasone 4 mg/ml Vial SLOW IVP SCH ×4 (06:03→23:58)
[2019-04-05] MEDS: Morphine Sulfate 100 MG in Dextrose 5% in Water 98 ML IV SCH (06:55)
[2019-04-05] MEDS: Famotidine/PF 20 mg/2ml Vial SLOW IVP SCH ×2 (08:22→20:08)
[2019-04-05] MEDS: Polyethylene Glycol 3350 17 GM Packet PO SCH (08:22)
[2019-04-05] MEDS: Losartan 25 MG TAB PO SCH (08:22)
[2019-04-05] MEDS: Acetaminophen 325 MG TAB PO PRN (08:30)
[2019-04-05] MEDS: Sodium Chloride 0.9% 1,000 ML IV SCH ×2 (09:59→22:42)
[2019-04-05] MEDS: fentaNYL 100 mcg/hour Patch TD SCH (11:20)
--- NOTE | 2019-04-05 12:19 | PDOC.PN ---
- Subjective Encounter Start Date: 04/05/19 Encounter Start Time: 07:20 Pt seen for followup re: vertebral metastases. Feels better, no complaints today. - Objective Resuscitation Status - Order Detail: 04/01/19 18:32 Resuscitation Status Routine Co-Sign Provider: Resuscitation Status: FULL: Full Resuscitation MAR Reviewed: Yes Vital Signs & Weight: Vital Signs (12 hours) Temp Pulse Resp BP Pulse Ox 04/05/19 08:00 94 L 04/05/19 07:55 97.9 F 81 18 159/79 H 94 L 04/05/19 04:00 97.6 F 71 16 151/89 H 96 Weight Weight 190 lb 5 oz I&O: 04/04/19 04/05/19 04/06/19 06:59 06:59 06:59 Intake Total 1822.1 2863.4 1172.1 Output Total 1800 3000 1525 Balance 22.1 -136.6 -352.9 Result Diagrams: 04/02/19 05:34 04/02/19 05:34 Additional Labs: Labs reviewed by me Phys Exam - Physical Examination Constitutional: NAD HEENT: moist MMs, sclera anicteric Neck: supple Respiratory: no wheezing Cardiovascular: RRR Gastrointestinal: soft Neurological: moves all 4 limbs Psychiatric: normal affect Dx/Plan (1) 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 Review of Systems - Review of Systems Respiratory: negative: Cough, Shortness of Breath, SOB with Excertion, Pleuritic Pain, Wheezing Cardiovascular: negative: chest pain, palpitations, orthopnea, paroxysmal nocturnal dyspnea, edema, light headedness - Medications/Allergies Allergies/Adverse Reactions: Allergies Allergy/AdvReac Type Severity Reaction Status Date / Time Penicillins Allergy Verified 04/01/19 20:15 Medications: Current Medications Acetaminophen (Tylenol) 650 mg PO Q4H PRN PRN Reason: Headache/Fever/Mild Pain (1-3) Last Admin: 04/05/19 08:30 Dose: 650 mg Acetaminophen (Tylenol) 650 mg [place] Q4H PRN PRN Reason: Headache/Fever/Mild Pain (1-3) Hydrocodone Bitart/Acetaminophen ([place] 10/325) 2 tab PO [place]CALL PRN PRN Reason: transport for procedures/tests Last Admin: 04/04/19 12:10 Dose: 2 tab Amlodipine Besylate (Norvasc) 10 mg PO HS [facility] Last Admin: 04/04/19 20:24 Dose: 10 mg Atorvastatin Calcium (Lipitor) 10 mg PO HS [facility] Last Admin: 04/04/19 20:24 Dose: 10 mg Cyclobenzaprine HCl (Flexeril) 5 mg PO BIDPRN PRN PRN Reason: Muscle Spasm Last Admin: 04/04/19 20:23 Dose: 5 mg Dexamethasone (Decadron) 4 mg SLOW IVP Q6H [facility] Last Admin: 04/05/19 11:31 Dose: 4 mg Famotidine (Pepcid) 20 mg SLOW IVP Q12HR [facility] Last Admin: 04/05/19 08:22 Dose: 20 mg Fentanyl (Duragesic) 100 mcg TD Q3D [facility] Last Admin: 04/05/19 11:20 Dose: 100 mcg Hydralazine HCl (Apresoline) 10 mg SLOW IVP Q6H PRN PRN Reason: SBP Greater Than 170 Last Admin: 04/04/19 15:43 Dose: 10 mg Sodium Chloride (Normal Saline 0.9%) 1,000 mls @ 75 mls/hr IV .[id number] [facility] Last Admin: 04/05/19 09:59 Dose: 1,000 mls Morphine Sulfate 100 mg/ (Dextrose/Water) 100 mls @ 0 mls/hr IV INF [facility] Last Admin: 04/05/19 06:55 Dose: 100 mls Losartan Potassium (Cozaar) 50 mg PO DAILY [facility] Last Admin: 04/05/19 08:22 Dose: 50 mg Ondansetron HCl (Zofran Odt) 4 mg PO Q6H PRN PRN Reason: Nausea/Vomiting Ondansetron HCl (Zofran) 4 mg IVP Q6H PRN PRN Reason: Nausea/Vomiting Polyethylene Glycol (Miralax) 17 gm PO DAILY [facility] Last Admin: 04/05/19 08:22 Dose: 17 gm Senna/Docusate Sodium (Senokot S) 2 tab PO BIDPRN PRN PRN Reason: Constipation Last Admin: 04/04/19 23:56 Dose: 2 tab Sodium Chloride (Flush - Normal Saline) 10 ml IVF Q12HR PRN PRN Reason: Saline Flush Last Admin: 04/04/19 20:25 Dose: 10 ml Sodium Chloride (Flush - Normal Saline) 10 ml IVF PRN PRN PRN Reason: Saline Flush Last Admin: 04/05/19 06:03 Dose: 10 ml
[2019-04-05] MEDS: HYDROcodone/Acetaminophen 10/325 mg Tablet PO PRN (12:56)
[2019-04-05] MEDS: Cyclobenzaprine 10 MG TAB PO PRN ×2 (15:08→19:51)
[2019-04-05] MEDS ORDERED: Calcium Carbonate 500 MG ChewTAB PO PRN (16:16)
[2019-04-05] MEDS: hydrALAZINE 20 MG/ML VIAL SLOW IVP PRN (16:27)
[2019-04-05] MEDS: Amlodipine 10 MG TAB PO SCH (19:51)
[2019-04-05] MEDS: Atorvastatin Calcium 10 MG TAB PO SCH (20:08)
[2019-04-05] MEDS: Senokot S 8.6-50 MG TAB PO PRN (21:50)
[2019-04-06] MEDS ORDERED: Bisacodyl 10 MG SUPP PR PRN (00:33)
--- NOTE | 2019-04-06 00:36 | PDOC.EVN ---
Event Note - Event Note Event Note: Patient with no bowel movement since 03/31/19. On [employer] for pain associated with malignant T9 fracture. Has been on Miralax daily and Senna BID PRN. Passing gas, no abdo pain/distention, no n/v. Would like to rest tonight and have Dulcolax MS in am. Senna switched to scheduled. Miralax BID.
[2019-04-06] MEDS: Cyclobenzaprine 10 MG TAB PO PRN ×3 (04:11→18:01)
[2019-04-06] MEDS ORDERED: chlorproMAZINE HCl 25 MG TAB PO SCH (05:00)
[2019-04-06] MEDS: Dexamethasone 4 mg/ml Vial SLOW IVP SCH ×4 (05:59→23:27)
[2019-04-06] MEDS ORDERED: Bisacodyl 5 MG TAB PO SCH (08:00)
[2019-04-06] MEDS: Polyethylene Glycol 3350 17 GM Packet PO SCH ×2 (09:28→20:16)
[2019-04-06] MEDS: Senokot S 8.6-50 MG TAB PO SCH ×2 (09:28→20:15)
[2019-04-06] MEDS: Famotidine/PF 20 mg/2ml Vial SLOW IVP SCH ×2 (09:28→20:15)
[2019-04-06] MEDS: Losartan 25 MG TAB PO SCH (09:29)
[2019-04-06] MEDS: Sodium Chloride 0.9% 1,000 ML IV SCH ×2 (12:05→23:27)
[2019-04-06] MEDS: HYDROcodone/Acetaminophen 10/325 mg Tablet PO PRN ×2 (12:05→18:04)
[2019-04-06] MEDS ORDERED: Magnesium Citrate 300 ML BOT PO SCH (13:45)
--- NOTE | 2019-04-06 14:25 | PDOC.PN ---
- Subjective Encounter Start Date: 04/06/19 Encounter Start Time: 11:30 Subjective: pt up in bed tolerated his diet and has no complains - Objective Resuscitation Status - Order Detail: 04/01/19 18:32 Resuscitation Status Routine Co-Sign Provider: Resuscitation Status: FULL: Full Resuscitation Vital Signs & Weight: Vital Signs (12 hours) Temp Pulse Resp BP Pulse Ox 04/06/19 12:00 98.4 F 90 18 134/87 94 L 04/06/19 08:00 98.4 F 77 18 157/91 H 96 04/06/19 04:37 158/98 H 04/06/19 04:10 99.0 F 88 18 188/94 H 96 Weight Weight 190 lb 5 oz I&O: 04/05/19 04/06/19 04/07/19 06:59 06:59 06:59 Intake Total 2863.4 2908.1 Output Total 3000 5225 Balance -136.6 -2316.9 Result Diagrams: 04/02/19 05:34 04/02/19 05:34 Phys Exam - Physical Examination Neck: no nodes, no JVD, supple, full ROM Respiratory: no wheezing, no rales, no rhonchi, wheezing present, clear to auscultation bilateral Cardiovascular: RRR, no significant murmur, no rub, gallop, irregular Gastrointestinal: soft, non-tender, no distention, positive bowel sounds Dx/Plan (1) 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 Code(s): C79.51 - SECONDARY MALIGNANT NEOPLASM OF BONE; C80.1 - MALIGNANT ( PRIMARY) NEOPLASM, UNSPECIFIED Status: Acute Comment: Path report noted, primary is probable TTF-1 negative lung cancer (2) Lung mass Code(s): R91.8 - OTHER NONSPECIFIC ABNORMAL FINDING OF LUNG FIELD Status: Acute Comment: probable TTF-1 negative lung cancer (3) vertebral body mass Status: Acute (4) Dyslipidemia Code(s): E78.5 - HYPERLIPIDEMIA, UNSPECIFIED Status: Chronic Comment: coninue atorvastatin (5) HTN (hypertension) Code(s): I10 - ESSENTIAL (PRIMARY) HYPERTENSION Status: Chronic Comment: Improved control - Plan pt up with PT felt better -: will order magnesium citrate -: pt to get radiation in am * . Review of Systems - Review of Systems Respiratory: negative: Cough, Dry, Shortness of Breath, Hemoptysis, SOB with Excertion, Pleuritic Pain, Sputum, Wheezing Cardiovascular: negative: chest pain, palpitations, orthopnea, paroxysmal nocturnal dyspnea, edema, light headedness, other Gastrointestinal: negative: Nausea, Vomiting, Abdominal Pain, Diarrhea, Constipation, Melena, Hematochezia, Other - Medications/Allergies Allergies/Adverse Reactions: Allergies Allergy/AdvReac Type Severity Reaction Status Date / Time Penicillins Allergy Verified 04/01/19 20:15 Medications: Current Medications Acetaminophen (Tylenol) 650 mg PO Q4H PRN PRN Reason: Headache/Fever/Mild Pain (1-3) Last Admin: 04/05/19 08:30 Dose: 650 mg Acetaminophen (Tylenol) 650 mg [place] Q4H PRN PRN Reason: Headache/Fever/Mild Pain (1-3) Hydrocodone Bitart/Acetaminophen ([place] 10/325) 2 tab PO Q4H PRN PRN Reason: Pain Last Admin: 04/06/19 12:05 Dose: 2 tab Amlodipine Besylate (Norvasc) 10 mg PO HS [facility] Last Admin: 04/05/19 19:51 Dose: 10 mg Atorvastatin Calcium (Lipitor) 10 mg PO HS [facility] Last Admin: 04/05/19 20:08 Dose: 10 mg Bisacodyl (Dulcolax) 10 mg [place] Q8H PRN PRN Reason: Constipation Last Admin: 04/06/19 06:04 Dose: 10 mg Calcium Carbonate (Tums) 1,000 mg PO Q4H PRN PRN Reason: Heartburn or Indigestion Last Admin: 04/05/19 16:24 Dose: 1,000 mg Cyclobenzaprine HCl (Flexeril) 10 mg PO TIDPRN PRN PRN Reason: Muscle Spasm Last Admin: 04/06/19 09:26 Dose: 10 mg Dexamethasone (Decadron) 4 mg SLOW IVP Q6H [facility] Last Admin: 04/06/19 12:04 Dose: 4 mg Famotidine (Pepcid) 20 mg SLOW IVP Q12HR [facility] Last Admin: 04/06/19 09:28 Dose: 20 mg Fentanyl (Duragesic) 100 mcg TD Q3D [facility] Last Admin: 04/05/19 11:20 Dose: 100 mcg Hydralazine HCl (Apresoline) 10 mg SLOW IVP Q6H PRN PRN Reason: SBP Greater Than 170 Last Admin: 04/05/19 16:27 Dose: 10 mg Sodium Chloride (Normal Saline 0.9%) 1,000 mls @ 75 mls/hr IV .[id number] [facility] Last Admin: 04/06/19 12:05 Dose: 1,000 mls Morphine Sulfate 100 mg/ (Dextrose/Water) 100 mls @ 0 mls/hr IV INF [facility] Last Admin: 04/05/19 06:55 Dose: 100 mls Losartan Potassium (Cozaar) 50 mg PO DAILY [facility] Last Admin: 04/06/19 09:29 Dose: 50 mg Magnesium Citrate (Citrate Of Magnesia 300 Ml Bot) 300 ml PO NOW [facility] Stop: 04/06/19 15:45 Ondansetron HCl (Zofran Odt) 4 mg PO Q6H PRN PRN Reason: Nausea/Vomiting Ondansetron HCl (Zofran) 4 mg IVP Q6H PRN PRN Reason: Nausea/Vomiting Polyethylene Glycol (Miralax) 17 gm PO BID [facility] Last Admin: 04/06/19 09:28 Dose: 17 gm Senna/Docusate Sodium (Senokot S) 2 tab PO BID [facility] Last Admin: 04/06/19 09:28 Dose: 2 tab Sodium Chloride (Flush - Normal Saline) 10 ml IVF Q12HR PRN PRN Reason: Saline Flush Last Admin: 04/05/19 20:08 Dose: 10 ml Sodium Chloride (Flush - Normal Saline) 10 ml IVF PRN PRN PRN Reason: Saline Flush Last Admin: 04/06/19 05:59 Dose: 10 ml
[2019-04-06] MEDS: Atorvastatin Calcium 10 MG TAB PO SCH (20:15)
[2019-04-06] MEDS: Amlodipine 10 MG TAB PO SCH (20:15)
[2019-04-07] MEDS: Cyclobenzaprine 10 MG TAB PO PRN ×2 (02:19→12:31)
[2019-04-07] MEDS: Dexamethasone 4 mg/ml Vial SLOW IVP SCH ×3 (05:42→17:14)
[2019-04-07] MEDS: Famotidine/PF 20 mg/2ml Vial SLOW IVP SCH ×2 (08:46→20:48)
[2019-04-07] MEDS: Losartan 25 MG TAB PO SCH (08:46)
[2019-04-07] MEDS: Polyethylene Glycol 3350 17 GM Packet PO SCH ×2 (08:48→20:48)
[2019-04-07] MEDS: Senokot S 8.6-50 MG TAB PO SCH ×2 (08:48→20:47)
[2019-04-07] MEDS: Morphine 4 MG/ML VIAL IV PRN ×4 (10:50→19:14)
--- NOTE | 2019-04-07 12:46 | PDOC.PN ---
- Subjective Encounter Start Date: 04/07/19 Encounter Start Time: 11:30 Subjective: pt up in bed does complains of some lower back pain -: pt denies any numbness or tingling to his lower ext - Objective Resuscitation Status - Order Detail: 04/01/19 18:32 Resuscitation Status Routine Co-Sign Provider: Resuscitation Status: FULL: Full Resuscitation Vital Signs & Weight: Vital Signs (12 hours) Temp Pulse Resp BP BP Pulse Ox 04/07/19 12:15 98.5 F 86 16 119/80 93 L 04/07/19 08:10 98.8 F 82 16 137/84 94 L 04/07/19 08:00 94 L 04/07/19 04:00 98.5 F 92 18 123/86 93 L Weight Weight 190 lb 5 oz I&O: 04/06/19 04/07/19 04/08/19 06:59 06:59 06:59 Intake Total 2908.1 3125 2 Output Total 5225 3051 350 Balance -2316.9 74 -348 Result Diagrams: 04/02/19 05:34 04/02/19 05:34 Phys Exam - Physical Examination Neck: no nodes, no JVD, supple, full ROM Respiratory: no wheezing, no rales, no rhonchi, wheezing present, clear to auscultation bilateral Cardiovascular: RRR, no significant murmur, no rub, gallop, irregular Gastrointestinal: soft, non-tender, no distention, positive bowel sounds Musculoskeletal: no edema, pulses present, edema present Dx/Plan (1) 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 Code(s): C79.51 - SECONDARY MALIGNANT NEOPLASM OF BONE; C80.1 - MALIGNANT ( PRIMARY) NEOPLASM, UNSPECIFIED Status: Acute Comment: Path report noted, primary is probable TTF-1 negative lung cancer (2) Lung mass Code(s): R91.8 - OTHER NONSPECIFIC ABNORMAL FINDING OF LUNG FIELD Status: Acute Comment: probable TTF-1 negative lung cancer (3) vertebral body mass Status: Acute (4) Dyslipidemia Code(s): E78.5 - HYPERLIPIDEMIA, UNSPECIFIED Status: Chronic Comment: coninue atorvastatin (5) HTN (hypertension) Code(s): I10 - ESSENTIAL (PRIMARY) HYPERTENSION Status: Chronic Comment: Improved control - Plan pt had a bm yestarday. He is getting radiation treatments -: medically stable. He will need rehab. PT working with pt * . Review of Systems - Review of Systems Respiratory: negative: Cough, Dry, Shortness of Breath, Hemoptysis, SOB with Excertion, Pleuritic Pain, Sputum, Wheezing Cardiovascular: negative: chest pain, palpitations, orthopnea, paroxysmal nocturnal dyspnea, edema, light headedness, other Gastrointestinal: negative: Nausea, Vomiting, Abdominal Pain, Diarrhea, Constipation, Melena, Hematochezia, Other - Medications/Allergies Allergies/Adverse Reactions: Allergies Allergy/AdvReac Type Severity Reaction Status Date / Time Penicillins Allergy Verified 04/01/19 20:15 Medications: Current Medications Acetaminophen (Tylenol) 650 mg PO Q4H PRN PRN Reason: Headache/Fever/Mild Pain (1-3) Last Admin: 04/05/19 08:30 Dose: 650 mg Acetaminophen (Tylenol) 650 mg [place] Q4H PRN PRN Reason: Headache/Fever/Mild Pain (1-3) Hydrocodone Bitart/Acetaminophen ([place] 10/325) 2 tab PO Q4H PRN PRN Reason: Pain Last Admin: 04/06/19 18:04 Dose: 2 tab Amlodipine Besylate (Norvasc) 10 mg PO HS [facility] Last Admin: 04/06/19 20:15 Dose: 10 mg Atorvastatin Calcium (Lipitor) 10 mg PO HS [facility] Last Admin: 04/06/19 20:15 Dose: 10 mg Bisacodyl (Dulcolax) 10 mg [place] Q8H PRN PRN Reason: Constipation Last Admin: 04/06/19 06:04 Dose: 10 mg Calcium Carbonate (Tums) 1,000 mg PO Q4H PRN PRN Reason: Heartburn or Indigestion Last Admin: 04/05/19 16:24 Dose: 1,000 mg Cyclobenzaprine HCl (Flexeril) 10 mg PO TIDPRN PRN PRN Reason: Muscle Spasm Last Admin: 04/07/19 12:31 Dose: 10 mg Dexamethasone (Decadron) 4 mg SLOW IVP Q6H [facility] Last Admin: 04/07/19 11:39 Dose: 4 mg Famotidine (Pepcid) 20 mg SLOW IVP Q12HR [facility] Last Admin: 04/07/19 08:46 Dose: 20 mg Fentanyl (Duragesic) 100 mcg TD Q3D [facility] [place] Last Admin: 04/05/19 11:20 Dose: 100 mcg Hydralazine HCl (Apresoline) 10 mg SLOW IVP Q6H PRN PRN Reason: SBP Greater Than 170 Last Admin: 04/05/19 16:27 Dose: 10 mg Sodium Chloride (Normal Saline 0.9%) 1,000 mls @ 75 mls/hr IV .[id number] [facility] [place] Last Admin: 04/06/19 23:27 Dose: 1,000 mls Losartan Potassium (Cozaar) 50 mg PO DAILY [facility] [place] Last Admin: 04/07/19 08:46 Dose: 50 mg Morphine Sulfate (Morphine) 4 mg IV Q1H PRN PRN Reason: BREAKTHROUGH PAIN Last Admin: 04/07/19 10:50 Dose: 4 mg Ondansetron HCl (Zofran Odt) 4 mg PO Q6H PRN PRN Reason: Nausea/Vomiting Ondansetron HCl (Zofran) 4 mg IVP Q6H PRN PRN Reason: Nausea/Vomiting Polyethylene Glycol (Miralax) 17 gm PO BID [facility] [place] Last Admin: 04/07/19 08:48 Dose: Not Given Senna/Docusate Sodium (Senokot S) 2 tab PO BID [facility] Last Admin: 04/07/19 08:48 Dose: 2 tab Sodium Chloride (Flush - Normal Saline) 10 ml IVF Q12HR PRN PRN Reason: Saline Flush Last Admin: 04/05/19 20:08 Dose: 10 ml Sodium Chloride (Flush - Normal Saline) 10 ml IVF PRN PRN PRN Reason: Saline Flush Last Admin: 04/06/19 05:59 Dose: 10 ml
[2019-04-07] MEDS: Sodium Chloride 0.9% 1,000 ML IV SCH (13:04)
[2019-04-07] MEDS: HYDROcodone/Acetaminophen 10/325 mg Tablet PO PRN ×2 (14:39→20:46)
[2019-04-07] MEDS: Amlodipine 10 MG TAB PO SCH (20:47)
[2019-04-07] MEDS: Atorvastatin Calcium 10 MG TAB PO SCH (20:47)
[2019-04-08] MEDS: Dexamethasone 4 mg/ml Vial SLOW IVP SCH ×4 (00:02→17:10)
[2019-04-08] MEDS: Sodium Chloride 0.9% 1,000 ML IV SCH ×2 (04:04→20:31)
[2019-04-08] MEDS: Cyclobenzaprine 10 MG TAB PO PRN ×2 (07:45→14:27)
[2019-04-08] MEDS: HYDROcodone/Acetaminophen 10/325 mg Tablet PO PRN ×2 (08:16→14:27)
[2019-04-08] MEDS: Famotidine/PF 20 mg/2ml Vial SLOW IVP SCH ×2 (08:17→20:31)
[2019-04-08] MEDS: Polyethylene Glycol 3350 17 GM Packet PO SCH ×2 (08:17→20:31)
[2019-04-08] MEDS: Senokot S 8.6-50 MG TAB PO SCH ×2 (08:17→20:31)
[2019-04-08] MEDS: Losartan 25 MG TAB PO SCH (08:18)
[2019-04-08] MEDS: fentaNYL 100 mcg/hour Patch TD SCH (11:59)
--- NOTE | 2019-04-08 13:30 | PDOC.PN ---
- Subjective Encounter Start Date: 04/08/19 Encounter Start Time: 10:15 Subjective: pt up in bed no complains - Objective Resuscitation Status - Order Detail: 04/01/19 18:32 Resuscitation Status Routine Co-Sign Provider: Resuscitation Status: FULL: Full Resuscitation Vital Signs & Weight: Vital Signs (12 hours) Temp Pulse Resp BP BP Pulse Ox 04/08/19 08:00 93 L 04/08/19 07:40 98.7 F 97 16 135/80 93 L 04/08/19 04:44 98.4 F 90 18 142/86 H 93 L Weight Weight 190 lb 5 oz I&O: 04/07/19 04/08/19 04/09/19 06:59 06:59 06:59 Intake Total 3125 1622 500 Output Total 3051 1625 650 Balance 74 -3 -150 Result Diagrams: 04/02/19 05:34 04/02/19 05:34 Phys Exam - Physical Examination Neck: no nodes, no JVD, supple, full ROM Respiratory: no wheezing, no rales, no rhonchi, wheezing present, clear to auscultation bilateral Cardiovascular: RRR, no significant murmur, no rub, gallop, irregular Dx/Plan (1) 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 Code(s): C79.51 - SECONDARY MALIGNANT NEOPLASM OF BONE; C80.1 - MALIGNANT ( PRIMARY) NEOPLASM, UNSPECIFIED Status: Acute Comment: Path report noted, primary is probable TTF-1 negative lung cancer (2) Lung mass Code(s): R91.8 - OTHER NONSPECIFIC ABNORMAL FINDING OF LUNG FIELD Status: Acute Comment: probable TTF-1 negative lung cancer (3) vertebral body mass Status: Acute (4) Dyslipidemia Code(s): E78.5 - HYPERLIPIDEMIA, UNSPECIFIED Status: Chronic Comment: coninue atorvastatin (5) HTN (hypertension) Code(s): I10 - ESSENTIAL (PRIMARY) HYPERTENSION Status: Chronic Comment: Improved control - Plan pt feels much better today -: pt continues to get radiation therapy * . Review of Systems - Review of Systems Respiratory: negative: Cough, Dry, Shortness of Breath, Hemoptysis, SOB with Excertion, Pleuritic Pain, Sputum, Wheezing Cardiovascular: negative: chest pain, palpitations, orthopnea, paroxysmal nocturnal dyspnea, edema, light headedness, other Gastrointestinal: negative: Nausea, Vomiting, Abdominal Pain, Diarrhea, Constipation, Melena, Hematochezia, Other - Medications/Allergies Allergies/Adverse Reactions: Allergies Allergy/AdvReac Type Severity Reaction Status Date / Time Penicillins Allergy Verified 04/01/19 20:15 Medications: Current Medications Acetaminophen (Tylenol) 650 mg PO Q4H PRN PRN Reason: Headache/Fever/Mild Pain (1-3) Last Admin: 04/05/19 08:30 Dose: 650 mg Acetaminophen (Tylenol) 650 mg [place] Q4H PRN PRN Reason: Headache/Fever/Mild Pain (1-3) Hydrocodone Bitart/Acetaminophen ([place] 10/325) 2 tab PO Q4H PRN PRN Reason: Pain Last Admin: 04/08/19 08:16 Dose: 2 tab Amlodipine Besylate (Norvasc) 10 mg PO HS [facility] Last Admin: 04/07/19 20:47 Dose: 10 mg Atorvastatin Calcium (Lipitor) 10 mg PO HS [facility] Last Admin: 04/07/19 20:47 Dose: 10 mg Bisacodyl (Dulcolax) 10 mg [place] Q8H PRN PRN Reason: Constipation Last Admin: 04/06/19 06:04 Dose: 10 mg Calcium Carbonate (Tums) 1,000 mg PO Q4H PRN PRN Reason: Heartburn or Indigestion Last Admin: 04/05/19 16:24 Dose: 1,000 mg Cyclobenzaprine HCl (Flexeril) 10 mg PO TIDPRN PRN PRN Reason: Muscle Spasm Last Admin: 04/08/19 07:45 Dose: 10 mg Dexamethasone (Decadron) 4 mg SLOW IVP Q6H [facility] Last Admin: 04/08/19 11:59 Dose: 4 mg Famotidine (Pepcid) 20 mg SLOW IVP Q12HR [facility] Last Admin: 04/08/19 08:17 Dose: 20 mg Fentanyl (Duragesic) 100 mcg TD Q3D [facility] Last Admin: 04/08/19 11:59 Dose: 100 mcg Hydralazine HCl (Apresoline) 10 mg SLOW IVP Q6H PRN PRN Reason: SBP Greater Than 170 Last Admin: 04/05/19 16:27 Dose: 10 mg Sodium Chloride (Normal Saline 0.9%) 1,000 mls @ 75 mls/hr IV .[id number] [facility] Last Admin: 04/08/19 04:04 Dose: 1,000 mls Losartan Potassium (Cozaar) 50 mg PO DAILY [facility] Last Admin: 04/08/19 08:18 Dose: 50 mg Morphine Sulfate (Morphine) 4 mg IV Q1H PRN PRN Reason: BREAKTHROUGH PAIN Last Admin: 04/07/19 19:14 Dose: 4 mg Ondansetron HCl (Zofran Odt) 4 mg PO Q6H PRN PRN Reason: Nausea/Vomiting Ondansetron HCl (Zofran) 4 mg IVP Q6H PRN PRN Reason: Nausea/Vomiting Polyethylene Glycol (Miralax) 17 gm PO BID [facility] Last Admin: 04/08/19 08:17 Dose: 17 gm Senna/Docusate Sodium (Senokot S) 2 tab PO BID [facility] Last Admin: 04/08/19 08:17 Dose: 2 tab Sodium Chloride (Flush - Normal Saline) 10 ml IVF Q12HR PRN PRN Reason: Saline Flush Last Admin: 04/07/19 20:48 Dose: 10 ml Sodium Chloride (Flush - Normal Saline) 10 ml IVF PRN PRN PRN Reason: Saline Flush Last Admin: 04/06/19 05:59 Dose: 10 ml
[2019-04-08] MEDS: Amlodipine 10 MG TAB PO SCH (20:30)
[2019-04-08] MEDS: Atorvastatin Calcium 10 MG TAB PO SCH (20:31)
[2019-04-09] MEDS: Dexamethasone 4 mg/ml Vial SLOW IVP SCH ×4 (00:32→18:07)
[2019-04-09] MEDS: Sodium Chloride 0.9% 1,000 ML IV SCH (05:39)
[2019-04-09] MEDS: Cyclobenzaprine 10 MG TAB PO PRN ×2 (06:55→14:26)
[2019-04-09] MEDS: HYDROcodone/Acetaminophen 10/325 mg Tablet PO PRN ×2 (06:55→14:26)
[2019-04-09] MEDS: Famotidine/PF 20 mg/2ml Vial SLOW IVP SCH ×2 (08:26→21:14)
[2019-04-09] MEDS: Polyethylene Glycol 3350 17 GM Packet PO SCH ×2 (08:26→21:14)
[2019-04-09] MEDS: Losartan 25 MG TAB PO SCH (08:26)
[2019-04-09] MEDS: Senokot S 8.6-50 MG TAB PO SCH ×2 (08:26→21:14)
[2019-04-09] MEDS ORDERED: Lorazepam 2 MG/ML VIAL SLOW IVP SCH (08:30)
[2019-04-09] MEDS: fentaNYL 100 mcg/hour Patch TD SCH (09:59)
--- NOTE | 2019-04-09 11:47 | MRI ---
MRI BRAIN WITH AND WITHOUT CONTRAST: Date: 04/09/19 INDICATION: History of pulmonary malignancy. Evaluation for intracranial metastasis. FINDINGS: There is motion artifact which does limit the evaluation. No acute territorial infarction, ventriculo megaly, intracranial mass effect, or midline shift. No hemorrhagic susceptibility is seen within the brain parenchyma. Subtle areas of hippocampal FLAIR hyperintensity, symmetric in appearance, are pres ent, not confirmed on T2 imaging, and do favor pulsation artifact. IMPRESSION: There is no MR evidence of intracranial metastatic disease. POS: C
[2019-04-09] MEDS: Atorvastatin Calcium 10 MG TAB PO SCH (21:14)
[2019-04-09] MEDS: Amlodipine 10 MG TAB PO SCH (21:14)
[2019-04-10] MEDS: Sodium Chloride 0.9% 1,000 ML IV SCH ×2 (00:37→19:31)
[2019-04-10] MEDS: Dexamethasone 4 mg/ml Vial SLOW IVP SCH ×4 (00:37→19:31)
[2019-04-10] MEDS: Cyclobenzaprine 10 MG TAB PO PRN ×2 (06:09→13:46)
[2019-04-10] MEDS: Famotidine/PF 20 mg/2ml Vial SLOW IVP SCH ×2 (09:25→20:59)
[2019-04-10] MEDS: HYDROcodone/Acetaminophen 10/325 mg Tablet PO PRN ×2 (09:26→13:46)
[2019-04-10] MEDS: Losartan 25 MG TAB PO SCH (09:26)
[2019-04-10] MEDS: Polyethylene Glycol 3350 17 GM Packet PO SCH ×2 (09:28→20:59)
[2019-04-10] MEDS: Senokot S 8.6-50 MG TAB PO SCH ×2 (09:28→20:58)
--- NOTE | 2019-04-10 09:32 | PDOC.PN ---
- Subjective Encounter Start Date: 04/09/19 Encounter Start Time: 15:00 Subjective: pt up in bed no complains - Objective Resuscitation Status - Order Detail: 04/01/19 18:32 Resuscitation Status Routine Co-Sign Provider: Resuscitation Status: FULL: Full Resuscitation Vital Signs & Weight: Vital Signs (12 hours) Temp Pulse Resp BP Pulse Ox 04/10/19 08:45 97.9 F 96 18 136/85 95 Weight Weight 190 lb 5 oz I&O: 04/09/19 04/10/19 04/11/19 06:59 06:59 06:59 Intake Total 2250 2055 Output Total 3925 3500 Balance -2244 -6080 Result Diagrams: 04/02/19 05:34 04/02/19 05:34 Phys Exam - Physical Examination Neck: no nodes, no JVD, supple, full ROM Respiratory: no wheezing, no rales, no rhonchi, wheezing present, clear to auscultation bilateral Cardiovascular: RRR, no significant murmur, no rub, gallop, irregular Gastrointestinal: soft, non-tender, no distention, positive bowel sounds Dx/Plan (1) 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 Code(s): C79.51 - SECONDARY MALIGNANT NEOPLASM OF BONE; C80.1 - MALIGNANT ( PRIMARY) NEOPLASM, UNSPECIFIED Status: Acute Comment: Path report noted, primary is probable TTF-1 negative lung cancer (2) Lung mass Code(s): R91.8 - OTHER NONSPECIFIC ABNORMAL FINDING OF LUNG FIELD Status: Acute Comment: probable TTF-1 negative lung cancer (3) vertebral body mass Status: Acute (4) Dyslipidemia Code(s): E78.5 - HYPERLIPIDEMIA, UNSPECIFIED Status: Chronic Comment: coninue atorvastatin (5) HTN (hypertension) Code(s): I10 - ESSENTIAL (PRIMARY) HYPERTENSION Status: Chronic Comment: Improved control - Plan pt doing well, medically stable. he is getting radiation * . Review of Systems - Review of Systems Respiratory: negative: Cough, Dry, Shortness of Breath, Hemoptysis, SOB with Excertion, Pleuritic Pain, Sputum, Wheezing Cardiovascular: negative: chest pain, palpitations, orthopnea, paroxysmal nocturnal dyspnea, edema, light headedness, other Gastrointestinal: negative: Nausea, Vomiting, Abdominal Pain, Diarrhea, Constipation, Melena, Hematochezia, Other - Medications/Allergies Allergies/Adverse Reactions: Allergies Allergy/AdvReac Type Severity Reaction Status Date / Time Penicillins Allergy Verified 04/01/19 20:15 Medications: Current Medications Acetaminophen (Tylenol) 650 mg PO Q4H PRN PRN Reason: Headache/Fever/Mild Pain (1-3) Last Admin: 04/05/19 08:30 Dose: 650 mg Acetaminophen (Tylenol) 650 mg [place] Q4H PRN PRN Reason: Headache/Fever/Mild Pain (1-3) Hydrocodone Bitart/Acetaminophen ([place] 10/325) 2 tab PO Q4H PRN PRN Reason: Pain Last Admin: 04/10/19 09:26 Dose: 2 tab Amlodipine Besylate (Norvasc) 10 mg PO HS [facility] Last Admin: 04/09/19 21:14 Dose: 10 mg Atorvastatin Calcium (Lipitor) 10 mg PO HS [facility] Last Admin: 04/09/19 21:14 Dose: 10 mg Bisacodyl (Dulcolax) 10 mg [place] Q8H PRN PRN Reason: Constipation Last Admin: 04/06/19 06:04 Dose: 10 mg Calcium Carbonate (Tums) 1,000 mg PO Q4H PRN PRN Reason: Heartburn or Indigestion Last Admin: 04/05/19 16:24 Dose: 1,000 mg Cyclobenzaprine HCl (Flexeril) 10 mg PO TIDPRN PRN PRN Reason: Muscle Spasm Last Admin: 04/10/19 06:09 Dose: 10 mg Dexamethasone (Decadron) 4 mg SLOW IVP Q6H [facility] Last Admin: 04/10/19 06:10 Dose: 4 mg Famotidine (Pepcid) 20 mg SLOW IVP Q12HR [facility] Last Admin: 04/10/19 09:25 Dose: 20 mg Fentanyl (Duragesic) 100 mcg TD Q3D [facility] Last Admin: 04/09/19 09:59 Dose: 100 mcg Hydralazine HCl (Apresoline) 10 mg SLOW IVP Q6H PRN PRN Reason: SBP Greater Than 170 Last Admin: 04/05/19 16:27 Dose: 10 mg Sodium Chloride (Normal Saline 0.9%) 1,000 mls @ 75 mls/hr IV .[id number] [facility] Last Admin: 04/10/19 00:37 Dose: 1,000 mls Losartan Potassium (Cozaar) 50 mg PO DAILY [facility] Last Admin: 04/10/19 09:26 Dose: 50 mg Morphine Sulfate (Morphine) 4 mg IV Q1H PRN PRN Reason: BREAKTHROUGH PAIN Last Admin: 04/07/19 19:14 Dose: 4 mg Ondansetron HCl (Zofran Odt) 4 mg PO Q6H PRN PRN Reason: Nausea/Vomiting Ondansetron HCl (Zofran) 4 mg IVP Q6H PRN PRN Reason: Nausea/Vomiting Polyethylene Glycol (Miralax) 17 gm PO BID [facility] Last Admin: 04/10/19 09:28 Dose: 17 gm Senna/Docusate Sodium (Senokot S) 2 tab PO BID [facility] Last Admin: 04/10/19 09:28 Dose: 2 tab Sodium Chloride (Flush - Normal Saline) 10 ml IVF Q12HR PRN PRN Reason: Saline Flush Last Admin: 04/07/19 20:48 Dose: 10 ml Sodium Chloride (Flush - Normal Saline) 10 ml IVF PRN PRN PRN Reason: Saline Flush Last Admin: 04/06/19 05:59 Dose: 10 ml
[2019-04-10] MEDS: Amlodipine 10 MG TAB PO SCH (20:58)
[2019-04-10] MEDS: Atorvastatin Calcium 10 MG TAB PO SCH (20:58)
[2019-04-11] MEDS: Dexamethasone 4 mg/ml Vial SLOW IVP SCH ×2 (00:07→05:33)
[2019-04-11 04:27] LABS: #Basophils 0.1 thou/uL (0.0-0.2); #Lymphocytes 0.2 thou/uL (1.20-3.40); #Monocytes 1.1 thou/uL (0.11-0.59); %Basophils 0.8 % (0.0-1.0); %Eosinophils 0.1 % (0.0-10.0); %Lymphocytes 2.1 % (21.0-51.0); %Monocytes 9.2 % (0.0-10.0); %Neutrophils 87.8 % (42.0-75.0); Hemoglobin 15.2 g/dL (14.0-18.0); Mean Corpuscular HGB CONC 32.9 g/dL (32.0-36.0); Mean Corpuscular Hemoglobin 30.9 pg (27.0-31.0); Mean Corpuscular Volume 93.9 fL (78.0-98.0); Mean Platelet Volume 7.3 fL (7.4-10.4); Platelet Count 334 thou/uL (130-400); RBC Distribution Width 11.5 % (11.5-14.5); Red Blood Cell (RBC) Count 4.91 mill/uL (4.70-6.10); White Blood Cell (WBC) Count 11.4 thou/uL (4.8-10.8)
[2019-04-11 04:41] LABS: Anion Gap 10 mmol/L (10-20); BUN (Urea Nitrogen) 21 mg/dL (8.4-25.7); Calc. Creatinine Clearance 136 mL/min (70-130); Carbon Dioxide 27 mmol/L (23-31); Chloride 103 mmol/L (98-107); Estimated GFR-MDRD Greater than 90; Glucose 147 mg/dL (80-115); Potassium 4.4 mmol/L (3.5-5.1); Sodium 136 mmol/L (136-145)
[2019-04-11] MEDS: Sodium Chloride 0.9% 1,000 ML IV SCH ×2 (05:33→23:51)
[2019-04-11] MEDS: HYDROcodone/Acetaminophen 10/325 mg Tablet PO PRN ×3 (09:17→20:00)
[2019-04-11] MEDS: Cyclobenzaprine 10 MG TAB PO PRN ×2 (09:19→14:19)
[2019-04-11] MEDS: Polyethylene Glycol 3350 17 GM Packet PO SCH ×2 (10:17→20:00)
[2019-04-11] MEDS: Senokot S 8.6-50 MG TAB PO SCH ×2 (10:18→20:01)
[2019-04-11] MEDS: Losartan 25 MG TAB PO SCH (10:18)
[2019-04-11] MEDS: Famotidine/PF 20 mg/2ml Vial SLOW IVP SCH (10:20)
[2019-04-11] MEDS: fentaNYL 100 mcg/hour Patch TD SCH (11:23)
[2019-04-11] MEDS: Dexamethasone 4 MG TAB PO SCH ×2 (14:17→20:01)
[2019-04-11] MEDS: Famotidine 20 MG TAB PO SCH (20:01)
[2019-04-11] MEDS: Amlodipine 10 MG TAB PO SCH (20:01)
[2019-04-11] MEDS: Atorvastatin Calcium 10 MG TAB PO SCH (20:01)
[2019-04-12] MEDS: Losartan 25 MG TAB PO SCH (10:20)
[2019-04-12] MEDS: Dexamethasone 4 MG TAB PO SCH ×3 (10:21→21:38)
[2019-04-12] MEDS: Famotidine 20 MG TAB PO SCH ×2 (10:21→21:39)
[2019-04-12] MEDS: Senokot S 8.6-50 MG TAB PO SCH ×2 (10:21→21:38)
[2019-04-12] MEDS: Polyethylene Glycol 3350 17 GM Packet PO SCH ×2 (10:21→21:38)
[2019-04-12] MEDS: Sodium Chloride 0.9% 1,000 ML IV SCH (12:01)
[2019-04-12] MEDS: fentaNYL 100 mcg/hour Patch TD SCH (12:57)
--- NOTE | 2019-04-12 17:27 | PDOC.PN ---
- Subjective Encounter Start Date: 04/12/19 Encounter Start Time: 11:15 Subjective: pt up in bed no complains - Objective Resuscitation Status - Order Detail: 04/01/19 18:32 Resuscitation Status Routine Co-Sign Provider: Resuscitation Status: FULL: Full Resuscitation Vital Signs & Weight: Vital Signs (12 hours) Temp Pulse Resp BP Pulse Ox 04/12/19 15:52 98.2 F 105 H 20 142/83 H 99 04/12/19 12:03 98.2 F 101 H 18 133/92 H 96 04/12/19 08:00 97.8 F 92 18 148/74 H 98 Weight Admit Weight 190 lb 4.96 oz Weight 190 lb 4.96 oz I&O: 04/11/19 04/12/19 04/13/19 06:59 06:59 06:59 Intake Total 3060 3165 Output Total 1275 1425 1600 Balance 1785 1740 -1600 Result Diagrams: 04/11/19 03:55 04/11/19 03:55 Phys Exam - Physical Examination Neck: no nodes, no JVD, supple, full ROM Respiratory: no wheezing, no rales, no rhonchi, clear to auscultation bilateral Cardiovascular: RRR, no significant murmur, no rub, gallop, irregular Gastrointestinal: soft, non-tender, no distention, positive bowel sounds Dx/Plan (1) 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 Code(s): C79.51 - SECONDARY MALIGNANT NEOPLASM OF BONE; C80.1 - MALIGNANT ( PRIMARY) NEOPLASM, UNSPECIFIED Status: Acute Comment: Path report noted, primary is probable TTF-1 negative lung cancer (2) Lung mass Code(s): R91.8 - OTHER NONSPECIFIC ABNORMAL FINDING OF LUNG FIELD Status: Acute Comment: probable TTF-1 negative lung cancer (3) vertebral body mass Status: Acute (4) Dyslipidemia Code(s): E78.5 - HYPERLIPIDEMIA, UNSPECIFIED Status: Chronic Comment: coninue atorvastatin (5) HTN (hypertension) Code(s): I10 - ESSENTIAL (PRIMARY) HYPERTENSION Status: Chronic Comment: Improved control - Plan pt conitinues to get radiation. He is on steroids. -: possible snf vs inpatient rehab -: pt eating well and is moving well brace * . Review of Systems - Review of Systems Respiratory: negative: Cough, Dry, Shortness of Breath, Hemoptysis, SOB with Excertion, Pleuritic Pain, Sputum, Wheezing Gastrointestinal: negative: Nausea, Vomiting, Abdominal Pain, Diarrhea, Constipation, Melena, Hematochezia, Other - Medications/Allergies Allergies/Adverse Reactions: Allergies Allergy/AdvReac Type Severity Reaction Status Date / Time Penicillins Allergy Verified 04/01/19 20:15 Medications: Current Medications Acetaminophen (Tylenol) 650 mg PO Q4H PRN PRN Reason: Headache/Fever/Mild Pain (1-3) Last Admin: 04/05/19 08:30 Dose: 650 mg Acetaminophen (Tylenol) 650 mg [place] Q4H PRN PRN Reason: Headache/Fever/Mild Pain (1-3) Hydrocodone Bitart/Acetaminophen ([place] 10/325) 2 tab PO Q4H PRN PRN Reason: Pain Last Admin: 04/11/19 20:00 Dose: 2 tab Amlodipine Besylate (Norvasc) 10 mg PO [facility] Last Admin: 04/11/19 20:01 Dose: 10 mg Atorvastatin Calcium (Lipitor) 10 mg PO [facility] Last Admin: 04/11/19 20:01 Dose: 10 mg Bisacodyl (Dulcolax) 10 mg [place] Q8H PRN PRN Reason: Constipation Last Admin: 04/06/19 06:04 Dose: 10 mg Calcium Carbonate (Tums) 1,000 mg PO Q4H PRN PRN Reason: Heartburn or Indigestion Last Admin: 04/05/19 16:24 Dose: 1,000 mg Cyclobenzaprine HCl (Flexeril) 10 mg PO TIDPRN PRN PRN Reason: Muscle Spasm Last Admin: 04/11/19 14:19 Dose: 10 mg Dexamethasone (Decadron) 4 mg PO TID [facility] Last Admin: 04/12/19 14:57 Dose: 4 mg Famotidine (Pepcid) 20 mg PO BID [facility] Last Admin: 04/12/19 10:21 Dose: 20 mg Fentanyl (Duragesic) 100 mcg TD Q3D [facility] Last Admin: 04/12/19 12:57 Dose: 100 mcg Hydralazine HCl (Apresoline) 10 mg SLOW IVP Q6H PRN PRN Reason: SBP Greater Than 170 Last Admin: 04/05/19 16:27 Dose: 10 mg Sodium Chloride (Normal Saline 0.9%) 1,000 mls @ 75 mls/hr IV .[id number] [facility] Last Admin: 04/12/19 12:01 Dose: 1,000 mls Losartan Potassium (Cozaar) 50 mg PO DAILY [facility] Last Admin: 04/12/19 10:20 Dose: 50 mg Morphine Sulfate (Morphine) 4 mg IV Q1H PRN PRN Reason: BREAKTHROUGH PAIN Last Admin: 04/07/19 19:14 Dose: 4 mg Ondansetron HCl (Zofran Odt) 4 mg PO Q6H PRN PRN Reason: Nausea/Vomiting Ondansetron HCl (Zofran) 4 mg IVP Q6H PRN PRN Reason: Nausea/Vomiting Polyethylene Glycol (Miralax) 17 gm PO BID [facility] Last Admin: 04/12/19 10:21 Dose: 17 gm Senna/Docusate Sodium (Senokot S) 2 tab PO BID [facility] Last Admin: 04/12/19 10:21 Dose: 2 tab Sodium Chloride (Flush - Normal Saline) 10 ml IVF Q12HR PRN PRN Reason: Saline Flush Last Admin: 04/07/19 20:48 Dose: 10 ml Sodium Chloride (Flush - Normal Saline) 10 ml IVF PRN PRN PRN Reason: Saline Flush Last Admin: 04/06/19 05:59 Dose: 10 ml
[2019-04-12] MEDS: Atorvastatin Calcium 10 MG TAB PO SCH (21:39)
[2019-04-12] MEDS: Amlodipine 10 MG TAB PO SCH ×2 (21:40→21:42)
[2019-04-13] MEDS: Dexamethasone 4 MG TAB PO SCH ×3 (08:10→21:36)
[2019-04-13] MEDS: Famotidine 20 MG TAB PO SCH ×2 (08:10→21:36)
[2019-04-13] MEDS: Polyethylene Glycol 3350 17 GM Packet PO SCH ×2 (08:10→21:37)
[2019-04-13] MEDS: Senokot S 8.6-50 MG TAB PO SCH ×2 (08:11→21:37)
[2019-04-13] MEDS: Losartan 25 MG TAB PO SCH (08:11)
[2019-04-13] MEDS: Sodium Chloride 0.9% 1,000 ML IV SCH (12:22)
--- NOTE | 2019-04-13 17:48 | PDOC.PN ---
- Subjective Encounter Start Date: 04/13/19 Encounter Start Time: 17:40 Subjective: f/u for suspected metastatic lung primary to T-spine receiving -: XRT. Plans for inpt rehab when approved. - Objective Resuscitation Status - Order Detail: 04/01/19 18:32 Resuscitation Status Routine Co-Sign Provider: Resuscitation Status: FULL: Full Resuscitation MAR Reviewed: Yes Vital Signs & Weight: Vital Signs (12 hours) Temp Pulse Resp BP Pulse Ox 04/13/19 08:00 97 04/13/19 07:45 97.4 F L 82 16 129/94 H 97 Weight Admit Weight 190 lb 4.96 oz Weight 190 lb 4.96 oz I&O: 04/12/19 04/13/19 04/14/19 06:59 06:59 06:59 Intake Total 3165 3700 1437 Output Total 1425 3500 Balance 0635 825 2807 Result Diagrams: 04/11/19 03:55 04/11/19 03:55 Radiology Reviewed by me: Yes (MRI brain - negative) Phys Exam - Physical Examination Constitutional: NAD HEENT: PERRLA, sclera anicteric, oral pharynx no lesions Neck: no nodes, no JVD, supple, full ROM Respiratory: no wheezing, no rales, no rhonchi, clear to auscultation bilateral S1, S2 Cardiovascular: RRR, no significant murmur, no rub, gallop Gastrointestinal: soft, non-tender, no distention, positive bowel sounds Musculoskeletal: no edema, pulses present Neurological: normal sensation, moves all 4 limbs Psychiatric: A&O x 3 Skin: normal turgor, cap refill <2 seconds Dx/Plan (1) Lung mass Code(s): R91.8 - OTHER NONSPECIFIC ABNORMAL FINDING OF LUNG FIELD Status: Acute Comment: Suspected TTF-1 negative lung cancer, XRT with plans on chemo/ immuno tx as outpt (2) 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 Code(s): C79.51 - SECONDARY MALIGNANT NEOPLASM OF BONE; C80.1 - MALIGNANT ( PRIMARY) NEOPLASM, UNSPECIFIED Status: Acute Comment: Path report noted, primary is probable TTF-1 negative lung cancer, XRT and plans for chemo/ immunotherapy (3) HTN (hypertension) Code(s): I10 - ESSENTIAL (PRIMARY) HYPERTENSION Status: Chronic Qualifiers: Hypertension type: essential hypertension Qualified Code(s): I10 - Essential (primary) hypertension Comment: Stable currently, continue home BP regimen, serial monitoring (4) Back pain Code(s): M54.9 - DORSALGIA, UNSPECIFIED Status: Chronic Qualifiers: Back pain location: thoracic back pain Comment: Continue Duragesic patch, Flexeril, [place], Dexamethasone, PT for mobilization - Plan plan discussed w/ family, PT/OT, social media marketing analyst, out of bed/ambulate, DVT proph w/SCDs Stable currently -: XRT per Rad Onc -: Continue Dexamethasone -: Pain control as clinically indicated -: CM for Rehab options * Saline lock IVF's
[2019-04-13] MEDS: Atorvastatin Calcium 10 MG TAB PO SCH (21:37)
[2019-04-13] MEDS: Amlodipine 10 MG TAB PO SCH (21:41)
[2019-04-14] MEDS: Dexamethasone 4 MG TAB PO SCH ×3 (08:06→20:43)
[2019-04-14] MEDS: Losartan 25 MG TAB PO SCH (08:06)
[2019-04-14] MEDS: Senokot S 8.6-50 MG TAB PO SCH ×2 (08:06→20:38)
[2019-04-14] MEDS: Famotidine 20 MG TAB PO SCH ×2 (08:06→20:42)
[2019-04-14] MEDS: Polyethylene Glycol 3350 17 GM Packet PO SCH ×2 (08:07→20:39)
[2019-04-14] MEDS: Cyclobenzaprine 10 MG TAB PO PRN (14:49)
--- NOTE | 2019-04-14 15:21 | PDOC.PN ---
- Subjective Encounter Start Date: 04/14/19 (f/u met t4 fracture) Encounter Start Time: 15:20 Subjective: Pt without complaints, reports pain is controlled and rates it -: 01/12. Denies any GERD, constipation or other concerns. - Objective Resuscitation Status - Order Detail: 04/01/19 18:32 Resuscitation Status Routine Co-Sign Provider: Resuscitation Status: FULL: Full Resuscitation Vital Signs & Weight: Vital Signs (12 hours) Temp Pulse Resp BP Pulse Ox 04/14/19 08:05 97.5 F L 98 18 143/98 H 97 Weight Admit Weight 190 lb 4.96 oz Weight 190 lb 4.96 oz I&O: 04/13/19 04/14/19 04/15/19 06:59 06:59 06:59 Intake Total 3700 2157 Output Total 3500 1400 Balance 200 757 Result Diagrams: 04/11/19 03:55 04/11/19 03:55 Phys Exam - Physical Examination Constitutional: NAD Respiratory: no wheezing, no rales, no rhonchi, clear to auscultation bilateral Cardiovascular: RRR, no significant murmur Gastrointestinal: soft, non-tender, no distention, positive bowel sounds Musculoskeletal: no edema Neurological: non-focal, moves all 4 limbs Dx/Plan (1) 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 Code(s): C79.51 - SECONDARY MALIGNANT NEOPLASM OF BONE; C80.1 - MALIGNANT ( PRIMARY) NEOPLASM, UNSPECIFIED Status: Acute (2) Lung mass Code(s): R91.8 - OTHER NONSPECIFIC ABNORMAL FINDING OF LUNG FIELD Status: Acute (3) GERD (gastroesophageal reflux disease) Code(s): K21.9 - GASTRO-ESOPHAGEAL REFLUX DISEASE WITHOUT ESOPHAGITIS Status: Chronic Qualifiers: Esophagitis presence: esophagitis presence not specified Qualified Code(s) : K21.9 - Gastro-esophageal reflux disease without esophagitis (4) Dyslipidemia Code(s): E78.5 - HYPERLIPIDEMIA, UNSPECIFIED Status: Chronic Comment: coninue atorvastatin (5) HTN (hypertension) Code(s): I10 - ESSENTIAL (PRIMARY) HYPERTENSION Status: Chronic Qualifiers: Hypertension type: essential hypertension Qualified Code(s): I10 - Essential (primary) hypertension - Plan * Pain controlled, having regular bm's * Radiation today through Sunday * * Rehab screen in place * * continue home meds as ordered * * dvt prophy - ambulatory and scd's * gi prophy - on H2 froy for steroids - controlled * code status full * * reviewed plan of care with patient/, no questions or further needs at end of eval.
[2019-04-14] MEDS: Amlodipine 10 MG TAB PO SCH (20:39)
[2019-04-14] MEDS: Atorvastatin Calcium 10 MG TAB PO SCH (20:41)
[2019-04-15 06:38] LABS: #Lymphocytes 0.3 thou/uL (1.20-3.40); #Neutrophils 13.4 thou/uL (1.40-6.50); %Basophils 0.3 % (0.0-1.0); %Eosinophils 0.1 % (0.0-10.0); %Lymphocytes 2.2 % (21.0-51.0); %Monocytes 6.7 % (0.0-10.0); %Neutrophils 90.7 % (42.0-75.0); Hemoglobin 16.4 g/dL (14.0-18.0); Mean Corpuscular Hemoglobin 30.9 pg (27.0-31.0); Mean Corpuscular Volume 93.5 fL (78.0-98.0); Mean Platelet Volume 7.2 fL (7.4-10.4); Platelet Count 297 thou/uL (130-400); White Blood Cell (WBC) Count 14.8 thou/uL (4.8-10.8)
[2019-04-15 06:55] LABS: Anion Gap 13 mmol/L (10-20); BUN (Urea Nitrogen) 22 mg/dL (8.4-25.7); Calc. Creatinine Clearance 140 mL/min (70-130); Calcium 9.2 mg/dL (7.8-10.44); Carbon Dioxide 26 mmol/L (23-31); Chloride 99 mmol/L (98-107); Estimated GFR-MDRD Greater than 90; Glucose 125 mg/dL (80-115); Potassium 4.7 mmol/L (3.5-5.1); Sodium 133 mmol/L (136-145)
[2019-04-15] MEDS: Famotidine 20 MG TAB PO SCH ×2 (08:25→21:13)
[2019-04-15] MEDS: Polyethylene Glycol 3350 17 GM Packet PO SCH ×2 (08:25→21:00)
[2019-04-15] MEDS: Losartan 25 MG TAB PO SCH (08:25)
[2019-04-15] MEDS: Senokot S 8.6-50 MG TAB PO SCH ×2 (08:26→21:00)
[2019-04-15] MEDS: Dexamethasone 4 MG TAB PO SCH ×2 (08:26→21:13)
[2019-04-15] MEDS: fentaNYL 100 mcg/hour Patch TD SCH (13:24)
[2019-04-15] MEDS: Cyclobenzaprine 10 MG TAB PO PRN (14:35)
--- NOTE | 2019-04-15 16:46 | PDOC.PN ---
- Subjective Encounter Start Date: 04/15/19 (f/u back pain) Encounter Start Time: 16:44 Subjective: Pt without complaints, reports that pain is controlled, normal BM's. -: denies any new concerns. - Objective Resuscitation Status - Order Detail: 04/01/19 18:32 Resuscitation Status Routine Co-Sign Provider: Resuscitation Status: FULL: Full Resuscitation Vital Signs & Weight: Vital Signs (12 hours) Temp Pulse Resp BP Pulse Ox 04/15/19 08:45 98.6 F 100 18 132/90 97 04/15/19 08:00 97 Weight Admit Weight 190 lb 4.96 oz Weight 190 lb 4.96 oz I&O: 04/14/19 04/15/19 04/16/19 06:59 06:59 06:59 Intake Total 2157 1400 Output Total 1400 1350 Balance 757 50 Result Diagrams: 04/15/19 06:17 04/15/19 06:17 Phys Exam - Physical Examination Constitutional: NAD Respiratory: no wheezing, no rales, no rhonchi, clear to auscultation bilateral Cardiovascular: RRR, no significant murmur Gastrointestinal: soft, non-tender, no distention, positive bowel sounds Musculoskeletal: no edema Neurological: non-focal Dx/Plan (1) 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 Code(s): C79.51 - SECONDARY MALIGNANT NEOPLASM OF BONE; C80.1 - MALIGNANT ( PRIMARY) NEOPLASM, UNSPECIFIED Status: Acute (2) Lung mass Code(s): R91.8 - OTHER NONSPECIFIC ABNORMAL FINDING OF LUNG FIELD Status: Acute (3) GERD (gastroesophageal reflux disease) Code(s): K21.9 - GASTRO-ESOPHAGEAL REFLUX DISEASE WITHOUT ESOPHAGITIS Status: Chronic Qualifiers: Esophagitis presence: esophagitis presence not specified Qualified Code(s) : K21.9 - Gastro-esophageal reflux disease without esophagitis (4) Dyslipidemia Code(s): E78.5 - HYPERLIPIDEMIA, UNSPECIFIED Status: Chronic Comment: coninue atorvastatin (5) HTN (hypertension) Code(s): I10 - ESSENTIAL (PRIMARY) HYPERTENSION Status: Chronic Qualifiers: Hypertension type: essential hypertension Qualified Code(s): I10 - Essential (primary) hypertension (6) Hyponatremia Code(s): E87.1 - HYPO-OSMOLALITY AND HYPONATREMIA Status: Acute - Plan * Hyponatremia - mild and likely secondary to malignancy and meds. * Encouraged pt to have more food and less fluid * recheck in AM * Pain controlled, having regular bm's * Radiation - last tx tomorrow * * Rehab screen in place * * continue home meds as ordered * * dvt prophy - ambulatory and scd's * gi prophy - on H2 froy for steroids - controlled * code status full * * reviewed plan of care with patient/, no questions or further needs at end of eval.
[2019-04-15] MEDS: Atorvastatin Calcium 10 MG TAB PO SCH (21:13)
[2019-04-15] MEDS: Amlodipine 10 MG TAB PO SCH (21:13)
[2019-04-16 04:25] LABS: Anion Gap 14 mmol/L (10-20); BUN (Urea Nitrogen) 21 mg/dL (8.4-25.7); Calc. Creatinine Clearance 161 mL/min (70-130); Carbon Dioxide 23 mmol/L (23-31); Chloride 101 mmol/L (98-107); Estimated GFR-MDRD Greater than 90; Glucose 129 mg/dL (80-115); Potassium 4.3 mmol/L (3.5-5.1); Sodium 134 mmol/L (136-145)
[2019-04-16] MEDS: Dexamethasone 4 MG TAB PO SCH ×2 (07:59→20:16)
[2019-04-16] MEDS: Polyethylene Glycol 3350 17 GM Packet PO SCH ×2 (07:59→20:12)
[2019-04-16] MEDS: Famotidine 20 MG TAB PO SCH ×2 (08:00→20:12)
[2019-04-16] MEDS: Losartan 25 MG TAB PO SCH (08:00)
--- NOTE | 2019-04-16 10:33 | PDOC.PN ---
- Subjective Encounter Start Date: 04/16/19 (f/u met disease) Encounter Start Time: 10:30 Subjective: Pt without complaints today. Is asking how long the patch will -: be needed for back pain. Has not required additional oral meds. - Objective Resuscitation Status - Order Detail: 04/01/19 18:32 Resuscitation Status Routine Co-Sign Provider: Resuscitation Status: FULL: Full Resuscitation Vital Signs & Weight: Vital Signs (12 hours) Temp Pulse Resp BP Pulse Ox 04/16/19 07:55 97.5 F L 98 18 137/91 H 98 Weight Admit Weight 190 lb 4.96 oz Weight 190 lb 4.96 oz I&O: 04/15/19 04/16/19 04/17/19 06:59 06:59 06:59 Intake Total 1400 1000 Output Total 1350 Balance 50 1000 Result Diagrams: 04/15/19 06:17 04/16/19 03:49 Phys Exam - Physical Examination Constitutional: NAD Respiratory: no wheezing, no rales, no rhonchi Cardiovascular: RRR, no significant murmur Gastrointestinal: soft, non-tender, positive bowel sounds Psychiatric: normal affect Dx/Plan (1) 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 Code(s): C79.51 - SECONDARY MALIGNANT NEOPLASM OF BONE; C80.1 - MALIGNANT ( PRIMARY) NEOPLASM, UNSPECIFIED Status: Acute (2) Lung mass Code(s): R91.8 - OTHER NONSPECIFIC ABNORMAL FINDING OF LUNG FIELD Status: Acute (3) GERD (gastroesophageal reflux disease) Code(s): K21.9 - GASTRO-ESOPHAGEAL REFLUX DISEASE WITHOUT ESOPHAGITIS Status: Chronic Qualifiers: Esophagitis presence: esophagitis presence not specified Qualified Code(s) : K21.9 - Gastro-esophageal reflux disease without esophagitis (4) Dyslipidemia Code(s): E78.5 - HYPERLIPIDEMIA, UNSPECIFIED Status: Chronic Comment: coninue atorvastatin (5) HTN (hypertension) Code(s): I10 - ESSENTIAL (PRIMARY) HYPERTENSION Status: Chronic Qualifiers: Hypertension type: essential hypertension Qualified Code(s): I10 - Essential (primary) hypertension (6) Hyponatremia Code(s): E87.1 - HYPO-OSMOLALITY AND HYPONATREMIA Status: Acute - Plan * * Hyponatremia - stable - encouraged pt to drink no more than 2L * * Pain controlled, having regular bm's. Discussed with patient waiting until rehab to start weaning the fentanyl patch as he will likely be more active wiht therapy. Continue prn flexeril. * * Radiation - last tx today - anticipate discharge to rehab when accepted. * Will d/w Dr. Gómez duration of steroids * Rehab screen in place * * continue home meds as ordered * * dvt prophy - ambulatory and scd's * gi prophy - on H2 froy for steroids - controlled * code status full * * reviewed plan of care with patient/, no questions or further needs at end of eval. .
[2019-04-16] MEDS: Senokot S 8.6-50 MG TAB PO SCH ×2 (11:26→20:12)
[2019-04-16] MEDS: Cyclobenzaprine 10 MG TAB PO PRN (14:33)
[2019-04-16] MEDS: Atorvastatin Calcium 10 MG TAB PO SCH (20:13)
[2019-04-16] MEDS: Amlodipine 10 MG TAB PO SCH (20:13)
[2019-04-17] MEDS: Dexamethasone 4 MG TAB PO SCH ×2 (09:30→20:16)
[2019-04-17] MEDS: Losartan 25 MG TAB PO SCH (09:30)
[2019-04-17] MEDS: Famotidine 20 MG TAB PO SCH ×2 (09:30→20:16)
[2019-04-17] MEDS: Polyethylene Glycol 3350 17 GM Packet PO SCH ×2 (09:32→20:16)
[2019-04-17] MEDS: Senokot S 8.6-50 MG TAB PO SCH ×2 (09:33→20:17)
--- NOTE | 2019-04-17 11:18 | PDOC.PN ---
- Subjective Encounter Start Date: 04/17/19 (f/u metastatic comp fx) Encounter Start Time: 11:16 Subjective: Pt feeling good today, pain controlled. Denies any new sx - Objective Resuscitation Status - Order Detail: 04/01/19 18:32 Resuscitation Status Routine Co-Sign Provider: Resuscitation Status: FULL: Full Resuscitation Vital Signs & Weight: Vital Signs (12 hours) Temp Pulse Resp BP Pulse Ox 04/17/19 07:28 97.3 F L 92 16 115/79 95 Weight Admit Weight 190 lb 4.96 oz Weight 190 lb 4.96 oz I&O: 04/16/19 04/17/19 04/18/19 06:59 06:59 06:59 Intake Total 1000 1680 Balance 1000 1680 Result Diagrams: 04/15/19 06:17 04/16/19 03:49 Phys Exam - Physical Examination Constitutional: NAD Respiratory: no wheezing, no rales, no rhonchi Cardiovascular: RRR, no significant murmur Gastrointestinal: soft, non-tender, no distention, positive bowel sounds Musculoskeletal: no edema Neurological: non-focal, moves all 4 limbs Psychiatric: normal affect Dx/Plan (1) 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 Code(s): C79.51 - SECONDARY MALIGNANT NEOPLASM OF BONE; C80.1 - MALIGNANT ( PRIMARY) NEOPLASM, UNSPECIFIED Status: Acute (2) Lung mass Code(s): R91.8 - OTHER NONSPECIFIC ABNORMAL FINDING OF LUNG FIELD Status: Acute (3) GERD (gastroesophageal reflux disease) Code(s): K21.9 - GASTRO-ESOPHAGEAL REFLUX DISEASE WITHOUT ESOPHAGITIS Status: Chronic Qualifiers: Esophagitis presence: esophagitis presence not specified Qualified Code(s) : K21.9 - Gastro-esophageal reflux disease without esophagitis (4) Dyslipidemia Code(s): E78.5 - HYPERLIPIDEMIA, UNSPECIFIED Status: Chronic Comment: coninue atorvastatin (5) HTN (hypertension) Code(s): I10 - ESSENTIAL (PRIMARY) HYPERTENSION Status: Chronic Qualifiers: Hypertension type: essential hypertension Qualified Code(s): I10 - Essential (primary) hypertension (6) Hyponatremia Code(s): E87.1 - HYPO-OSMOLALITY AND HYPONATREMIA Status: Acute - Plan * * Hyponatremia - stable - continue more food and less fluid * * Pain controlled, having regular bm's. Discussed with patient waiting until rehab to start weaning the fentanyl patch as he will likely be more active with therapy. Continue prn flexeril. * * Radiation - last tx yesterday. D/w Dr. Gómez - plan for dexamethasone is BID x 4 days, then daily x 7 days, then every other day x 7 days * * Rehab awaiting insurance authorization * * continue home meds as ordered * * dvt prophy - ambulatory and scd's * gi prophy - on H2 froy for steroids - controlled * code status full * * reviewed plan of care with patient/, no questions or further needs at end of eval..
[2019-04-17] MEDS: Amlodipine 10 MG TAB PO SCH (20:16)
[2019-04-17] MEDS: Atorvastatin Calcium 10 MG TAB PO SCH (20:16)
[2019-04-18] MEDS: Senokot S 8.6-50 MG TAB PO SCH (08:33)
[2019-04-18] MEDS: Polyethylene Glycol 3350 17 GM Packet PO SCH (08:34)
[2019-04-18] MEDS: Dexamethasone 4 MG TAB PO SCH (08:34)
[2019-04-18] MEDS: Losartan 25 MG TAB PO SCH (08:34)
[2019-04-18] MEDS: Famotidine 20 MG TAB PO SCH (08:34)
[2019-04-18 09:22] VITALS: BP 116/77; TEMP 97.7
[2019-04-18] MEDS: fentaNYL 100 mcg/hour Patch TD SCH (12:22)
--- NOTE | 2019-04-18 15:04 | PDOC.PN ---
- Subjective Encounter Start Date: 04/18/19 (f/u met lesion) Encounter Start Time: 15:02 Subjective: Pt without any complaints. No overnight events. Awaiting insurance -: approval of inpatient rehab. - Objective Resuscitation Status - Order Detail: 04/01/19 18:32 Resuscitation Status Routine Co-Sign Provider: Resuscitation Status: FULL: Full Resuscitation Vital Signs & Weight: Vital Signs (12 hours) Temp Pulse Resp BP Pulse Ox 04/18/19 08:10 97.7 F 95 18 116/77 96 04/18/19 08:00 96 Weight Admit Weight 190 lb 4.96 oz Weight 190 lb 4.96 oz I&O: 04/17/19 04/18/19 04/19/19 06:59 06:59 06:59 Intake Total 1680 1390 Output Total 800 Balance 1680 590 Result Diagrams: 04/15/19 06:17 04/16/19 03:49 Phys Exam - Physical Examination Constitutional: NAD Respiratory: no wheezing, no rales, no rhonchi Cardiovascular: RRR, no significant murmur Gastrointestinal: soft, non-tender, no distention, positive bowel sounds Musculoskeletal: no edema Psychiatric: normal affect Skin: no rash Dx/Plan (1) 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 Code(s): C79.51 - SECONDARY MALIGNANT NEOPLASM OF BONE; C80.1 - MALIGNANT ( PRIMARY) NEOPLASM, UNSPECIFIED Status: Acute (2) Lung mass Code(s): R91.8 - OTHER NONSPECIFIC ABNORMAL FINDING OF LUNG FIELD Status: Acute (3) GERD (gastroesophageal reflux disease) Code(s): K21.9 - GASTRO-ESOPHAGEAL REFLUX DISEASE WITHOUT ESOPHAGITIS Status: Chronic Qualifiers: Esophagitis presence: esophagitis presence not specified Qualified Code(s) : K21.9 - Gastro-esophageal reflux disease without esophagitis (4) Dyslipidemia Code(s): E78.5 - HYPERLIPIDEMIA, UNSPECIFIED Status: Chronic Comment: coninue atorvastatin (5) HTN (hypertension) Code(s): I10 - ESSENTIAL (PRIMARY) HYPERTENSION Status: Chronic Qualifiers: Hypertension type: essential hypertension Qualified Code(s): I10 - Essential (primary) hypertension (6) Hyponatremia Code(s): E87.1 - HYPO-OSMOLALITY AND HYPONATREMIA Status: Acute - Plan * Hyponatremia - stable at last check. * * Pain controlled, having regular bm's. Discussed with patient waiting until rehab to start weaning the fentanyl patch as he will likely be more active with therapy. Continue prn flexeril. * * Radiation - last tx yesterday. D/w Dr. Gómez - plan for dexamethasone is BID x 4 days, then daily x 7 days, then every other day x 7 days * * Rehab awaiting insurance authorization * Place home health consult in case pt is not approved - for pt/ot at home. * continue home meds as ordered * * dvt prophy - ambulatory and scd's * gi prophy - on H2 froy for steroids - controlled * code status full * * reviewed plan of care with patient/, no questions or further needs at end of eval...
--- NOTE | 2019-04-19 05:47 | DIS ---
DATE OF ADMISSION: 04/01/2019 DATE OF DISCHARGE: 04/18/2019 CONSULTANTS: 1. Radiation Oncology, Dr. Gómez. 2. Oncology TECHNICAL MARKETING CONSULTANT Maria Victoria Moreira and supporting physicians. PROCEDURES PERFORMED: 1. Radiation therapy by Dr. Gómez. 2. Bone biopsy based on CT scan. MEDICATIONS: Reconciled at discharge. New medications are 1. Tylenol 650 mg every 4 hours as needed. 2. Dulcolax 10 mg every 8 hours as needed. 3. Tums 1000 mg q.4 hours as needed. 4. Flexeril 10 mg t.i.d. p.r.n. back spasm. 5. Dexamethasone 4 mg b.i.d. x4 days, then daily x7 days, then every other day x7 days. 6. Zofran ODT 4 mg every 6 hours as needed. 7. MiraLAX 17 g b.i.d. 8. Senokot S 2 tablets b.i.d. 9. Fentanyl patch 100 mcg every 3 days, transdermal patch. DISCONTINUED MEDICATIONS: Diclofenac. RESUMED MEDICATIONS: 1. Amlodipine 10 mg daily. 2. Atorvastatin 10 mg daily. 3. Fish oil capsule daily. 4. Losartan 50 mg daily. 5. Multivitamin daily. 6. Zantac 150 mg b.i.d. DISCHARGE DISPOSITION: To inpatient rehab. FINAL DIAGNOSES: 1. Malignant neoplasm to T9, now status post XRT with outpatient plan for chemotherapy and immunotherapy. 2. Lung mass. 3. Back pain secondary to above. 4. Hyponatremia, mild. SECONDARY DIAGNOSES: 1. Dyslipidemia. 2. Hypertension. HISTORY OF PRESENT ILLNESS: is a 63-year-old male, who had progressive worsening of back pain over the past few months. It reached the point of becoming severe and he underwent imaging and found to have an expansile lytic T9 lesion. Because of this, he was admitted to the hospital for further evaluation and treatment. The patient underwent MRI of the spine and shown to have extensive replacement of his T9 vertebral body with a pathologic fracture compressing the thecal sac and spinal cord. This was concerning for metastasis in conjunction with a new lung mass identified on chest x-ray. The patient was evaluated by General Surgery with recommendation for neurosurgery consults, T-spine MRI with and without contrast. Neurosurgery evaluation recommended a TLSO brace, with the goal of mobilizing more, managing the pain and oncology evaluation. Oncology has been following the patient through this hospitalization and we will see him in followup for a new lung mass and metastatic disease to the T9 lesion. A CT-guided biopsy was performed of this, and the patient has received a complete XRT treatment. The bone biopsy shows metastatic adenocarcinoma with an unknown primary. The patient has been managed on steroids as well per Dr. Gómez, which have been titrated down and a plan to dose twice daily for 4 days, then daily for a week and then every other day for a week to complete treatment. He will be kept on famotidine during that time to reduce the risk of GI side effects. The patient has progressed well, tolerating the brace, ambulating around the room and his pain is well controlled now with a fentanyl patch. He is being transferred to the inpatient rehab facility with the goal of strengthening so that he can follow up and initiate chemotherapy and immunotherapy per Oncology. The patient has not required any oxygen support, or treatment for the new lung mass. For other medical conditions, he has been kept on his home medications and his blood pressure has been well controlled. The patient overall doing well. He does meet criteria for discharge. PHYSICAL EXAMINATION: Please see the note on chart. CERVANTES FINDINGS AND TEST RESULTS: CBC on April 15, 14.8, 16.4, 49.6, 297 with 90% neutrophils. D-dimer was 5.58. Chemistry on 04/16, 134, 4.3, 101, 23, 21, 0.56, 129. CEA 11.19. Tumor marker AFP less than 2. Free PSA was 0.36, with a percent free PSA of 16.4, and a total PSA of 2.2. Urine on admission showed 1.044 specific gravity and present ketones. The patient's biopsy report shows a BRAF mutation not detected. GFR mutation not detected. He had a brain MRI on 04/09, which showed no evidence of intracranial metastatic disease. Surgical specimen on April 02 showed the metastatic adenocarcinoma, unknown primary. Immunostains were negative for lung primary, prostatic primary, and lower GI primary. Chest CT angiogram shows no evidence of PE, masslike density in the right upper lobe along the fissure, which is suspicious for neoplasm. Thoracic spine CT on April 01 showed expansile lytic T9 lesion with recommendation for neurosurgical consultation, compression of the thecal sac and severe spinal stenosis due to a soft tissue component of the T9 vertebra which extends posteriorly compressing the thecal sac and spinal cord. Lumbar spine CT, no evidence of acute lumbar spine fractures or bony lesions. Thoracic spine MRI shows extensive replacement of the T9 vertebral body with a pathologic fracture compressing the thecal sac and spinal cord at T9, some signal abnormality in the superior endplate of T11. DIET: Heart healthy. ACTIVITY: Encouraged with PT and OT per rehab protocol. Reviewed with the patient and his this hospitalization, the importance of followup, the intention with rehab, and return for care precautions. No questions or further needs at the end of evaluation. FOLLOWUP: 1. Follow up with Dr. Gómez on May 27 at 3 p.m. 2. Follow up with Maria Victoria Moreira in the [facility] on May 01 at 9:45 a.m. 3. Follow up with the primary care provider after discharge from rehab to review this hospitalization and address any other health needs and that is Dr. Lima. CODE STATUS: Full. TIME SPENT: Total time coordinating discharge is 30 minutes. Job ID: [id number] [facility]
== END 2019-04-18 20:35 | DRG 167 ==
LOC: SCSER 08:12 → ERHOLD 11:54 → OBSVTOIN 11:54 → ONC 14:55
PROVIDERS: ADMIT Internal Medicine; ATTEND Internal Medicine
PROC: 0PB43ZX Excision of Thoracic Vertebra, Percutaneous Approach, Diagnostic (ICD-10-PCS; principal; 2019-04-02)
DX: C34.90 Malignant neoplasm of unspecified part of unspecified bronchus or lung (principal); C79.51 Secondary malignant neoplasm of bone; E87.1 Hypo-osmolality and hyponatremia; I10 Essential (primary) hypertension; E78.00 Pure hypercholesterolemia, unspecified; G89.29 Other chronic pain; D72.829 Elevated white blood cell count, unspecified; K59.00 Constipation, unspecified; M48.04 Spinal stenosis, thoracic region; Z88.0 Allergy status to penicillin; Z79.899 Other long term (current) drug therapy; Z98.890 Other specified postprocedural states; Z87.891 Personal history of nicotine dependence
CPT/HCPCS: 20225; 36415; 70553; 71275; 72128; 72131; 72157; 77012; 77014; 77290; 77306; 77332; 77336; 77412; 77417; 80048; 80053; 80076; 81001; 81210; 81235; 82105; 82378; 82550; 83605; 83690; 84145; 84153; 84154; 85025; 85379; 85610; 85730; 88307; 88333; 88341; 88342; 88360; 88377; 96372; 96374; 96375; A9577; J0360; J1100; J1885; J2060; J2250; J2270; J2274; J7070; J8540; Q0161; Q9966; S0028

== ENCOUNTER 2019-05-01 10:10 | Outpatient (CLI) | payer MEDICARE ==
--- NOTE | 2019-05-01 13:18 | PET ---
Nuclear medicine FDG PET/CT: (Positron emission tomography and computed tomography) DATE: 05/01/2019 HISTORY: 63-year-old male with malignant neoplasm of right upper lobe and bronchus. COMPARISON: No prior PET scan available. There is a CT pulmonary angiogram of 04/01/2019. TECHNIQUE: IV injection of F-18 fluorodeoxyglucose (FDG) dose: 10.9 mCi. PET scan and attenuation correction CT performed from skull base to proximal thighs. FINDINGS: SUV (standard uptake values) numbers given are maximum SUVs. QCLR used. The spiculated mass in the anterior segment of the right upper lobe previously measuring approximatel y 4 x 3 x 1.5 cm, currently measures approximately 3.5 x 2.5 x 1.5 cm. SUV 15.1. In the superior medial corner of the superior segment of the left lower lobe, there is a new soft tis jacqueline density pulmonary mass measuring approximately 3.5 x 3 x 4 cm, and is very hypermetabolic, with SUV of 13.5. It abuts the posterior medial pleural surface adjacent to the left upper thoracic prever tebral space. There is an approximately 3 to 5 cm long segment of the posterior lateral aspect of the right fifth r ib which is destroyed by osteolytic soft tissue density mass with SUV of 7.1. There is a destructive osteolytic lesion involving much of the T9 vertebral body with soft tissue mas s component that protrudes into the spinal canal, causing cord impingement. The greatest focus of FDG avidity involving this is at the left T9 destroyed pedicle where the SUV is 6.6. A 1 cm osseous lesion involving the posterior aspect of the left iliac bone with sclerotic rim and ellen cent centered, SUV 6.3. Similar-appearing osseous lesion at right anterior supra acetabular ilium SUV 5.9. Contralateral osseous lesion at left ilium central-medial acetabular roof, SUV 5.2. At left proximal-mid femoral diaphysis, there is an intramedullary lesion causing endosteal scallopin g and thinning, with SUV 12.3. There is a soft tissue component of mass displacing quadriceps muscle abutting the anterior periosteal surface of the femur exactly at this level, with SUV of 18.1. 1 cm slightly enlarged right paratracheal mediastinal lymph node with SUV 4.9. Small region of increased uptake at mid-distal esophagus SUV 6, and more distally in the esophagus wi th SUV 5.0. These are nonspecific, and could represent esophagitis, such as due to gastroesophageal reflux disease. Neoplasm is less likely but not excluded. Consider endoscopy. A solitary 1 x 1.5 cm soft tissue density nodule located slightly lateral to the lower pole cortex of the left kidney, on attached to any organs, with SUV 10.8, representing metastatic retroperitoneal or intraperitoneal deposit. Small focus of SUV 4.9 in the left gluteus intermedius muscle, indeterminate. No suspicious lesions in the neck, liver, pancreas, or adrenals.. IMPRESSION: 1) hypermetabolic right upper lobe primary lung cancer has slightly decreased in size. 2) several hypermetabolic skeletal metastatic lesions: Right fifth rib, T9 vertebra with cord impinge ment, left ilium, right ilium, and left acetabular ilium, and left femoral shaft lesion with both intramedullary and extra osseous components. 3) a single right paratracheal mediastinal slightly large malignant lymph node. 4) 2 foci of increased uptake in the distal esophagus. Probably esophagitis, but recommend endoscopy to rule out primary esophageal cancer. 5) solitary left retroperitoneal metastatic nodule just lateral to the lower pole of left kidney.
== END 2019-05-01 10:11 | disposition home or self-care (01) ==
LOC: PET 10:10
PROVIDERS: ATTEND Internal Medicine Hematology & Oncology
DX: C34.11 Malignant neoplasm of upper lobe, right bronchus or lung (principal); R59.0 Localized enlarged lymph nodes; M89.9 Disorder of bone, unspecified; N28.89 Other specified disorders of kidney and ureter
CPT/HCPCS: 78815; A9552

== ENCOUNTER → 2019-05-07 | Day surgery (SDC) | payer MEDICARE ==
--- NOTE | 2019-05-06 11:13 | HP ---
HISTORY OF PRESENT ILLNESS: Randy Hopkins is a 63-year-old male presented with back pain, who presented and found to have metastatic adenocarcinoma of the lung. He is followed by Dr. Perera and Dr. Lima. He had a T9 fracture and he is wearing a back brace. He had a PET scan on 05/01/2019, demonstrating hypermetabolic right upper lobe lung cancer, several metastatic foci right fifth rib, T9 vertebrae with cord impingement, left ilium, right ilium, left acetabular ilium, left femoral shaft lesion, right peritracheal mediastinal malignant node, increased intake distal esophagus may be esophagitis, solitary left retroperitoneal metastatic nodule lower pole left kidney area. I have been asked to see him regarding placing a MediPort. We will plan low-profile MediPort. He understands risks and benefits, consents. He is wearing a back brace and we will place a low-profile since that does not interfere with this. ALLERGIES: PENICILLIN. SOCIAL HISTORY: Tobacco, none for 30 years. Alcohol, rarely and none recently. MEDICATIONS: 1. Dexamethasone 4 mg one-half tablet every other day. 2. Losartan daily 50 mg. 3. Tylenol No. 3 p.r.n. 4. Atorvastatin 10 mg at bedtime. 5. Amlodipine 10 mg daily. 6. Cyclobenzaprine 10 mg p.r.n. spasms. 7. Motz-fpy-ulrdmue ranitidine 150 mg two a day. 8. [place]-3. 9. Multivitamin. 10. Vitamin D3. 11. MiraLAX. PAST SURGICAL HISTORY: Bilateral meniscectomies, shoulder surgery, and elbow ORIF. PAST MEDICAL HISTORY: Hypertension, elevated cholesterol, and metastatic lung cancer, adenocarcinoma. REVIEW OF SYSTEMS: Ten-point noncontributory. The patient is retired from general sales. PHYSICAL EXAMINATION: VITAL SIGNS: 167 pounds and 69 inches. 109/85, 103, and 97.7 degrees. GENERAL: Wearing a back brace. LUNGS: Clear to auscultation. CARDIAC: Regular rate and rhythm without murmur or gallop. ABDOMEN: Soft and nontender. EXTREMITIES: Unremarkable. ASSESSMENT AND PLAN: 1. Metastatic adenocarcinoma of the lung right upper lobe, metastatic foci as above. Plan low-profile MediPort. He understands risks and benefits, consents. 2. Hypertension. 3. Elevated cholesterol. Job ID: [id number]
[~2019-05-07] MED LIST: Acetaminophen/Codeine 30-300mg Tablet ONE; Bupivacaine HCl 0.5%/Epinephrine 1:200,000/PF 30 ml Vial ONE; Fentanyl 100 MCG/2 ML VIAL ONE; Heparin 5,000 UNITS/ML VIAL ONE; Levofloxacin 500 mg/D5W 100 ml Premix Bag ONE; Lidocaine 2% PF 5 ML VIAL ONE; Propofol 500 MG/50 ML VIAL ONE
--- NOTE | 2019-05-07 14:58 | OP ---
DATE OF PROCEDURE: 05/07/2019 PREOPERATIVE DIAGNOSIS: Metastatic right upper lobe lung cancer in need of MediPort access, had a neoplastic chemotherapy access. POSTOPERATIVE DIAGNOSIS: Metastatic right upper lobe lung cancer in need of MediPort access, had a neoplastic chemotherapy access. PROCEDURE PERFORMED: Left subclavian vein low-profile MediPort. ANESTHESIA: Intravenous sedation with local of 0.5% Marcaine with epinephrine 30 mL mixed with 2% Xylocaine 10 mL, fluoroscopy used during the procedure. DESCRIPTION OF PROCEDURE: The patient was taken to the operating room, where under intravenous sedation in the supine position, the chest was clipped of hair, prepared with ChloraPrep, and draped in routine fashion. Local anesthetic mixture of 0.5% Marcaine with epinephrine 30 mL mixed to 2% Xylocaine 10 mL, infiltrated in the skin and subcutaneous tissue about the operative site and using infraclavicular approach, trocar catheter was used to cannulate the left subclavian vein. J-wire threaded, trocar catheter removed. Skin was incised and enlarged sharply, carried down through the skin and subcutaneous tissue creating a subcutaneous pocket with blunt and sharp dissection, obtaining hemostasis with the cautery. Dilator and Win-Away sheath placed over the J-wire in the superior vena cava. Dilator and J-wire were removed. Catheter was placed with the Peel-Away sheath. Peel-Away sheath removed, catheter tailored to length, connected to the MediPort using fluoroscopy to place the catheter tip in proper position in the superior vena cava. Subcutaneous tissue was approximated with 3-0 Monocryl, skin with subdermal 4-0 Monocryl, and [place] glue applied. Final fluoroscopic images revealed good catheter placement. MediPort access with a [place] needle, aspirating blood, flushed with heparinized saline solution. The patient tolerated the procedure well. Job ID: [id number]
--- NOTE | 2019-05-07 15:08 | RAD ---
FRONTAL VIEW CHEST: 05/07/19 INDICATION: Mediport placement, follow-up. FINDINGS: There is a left sided chest port in place with tip overlying the region of the right atrium. No disc rete, postprocedural pneumothorax of significance is seen. There is prominence of the bilateral perih ilar vasculature. Chronic appearing rib deformities are seen at multiple levels on the right. Cardiac silhouette and aortic silhouette are accentuated by technique. IMPRESSION: 1. Left sided Mediport, without a significant postprocedure pneumothorax visualized. 2. Remote posttraumatic sequela of the right ribs. 3. Findings which may relate to mild fluid overload. Correlate clinically. POS: MAUDE
== END ==
LOC: SDC 08:48
PROVIDERS: ATTEND Specialist
PROC: 05H633Z Insertion of Infusion Device into Left Subclavian Vein, Percutaneous Approach (ICD-10-PCS; principal; 2019-05-07)
DX: Z45.2 Encounter for adjustment and management of vascular access device (principal); C78.01 Secondary malignant neoplasm of right lung; C80.1 Malignant (primary) neoplasm, unspecified; I10 Essential (primary) hypertension; E78.00 Pure hypercholesterolemia, unspecified; Z87.891 Personal history of nicotine dependence; Z88.0 Allergy status to penicillin; Z79.899 Other long term (current) drug therapy
CPT/HCPCS: 71045; 76000; 93005; 93010; C1788; J0670; J1642; J1644; J1956; J2001; J2704; J3010

== ENCOUNTER 2019-05-20 12:55 | Outpatient (CLI) | payer MEDICARE ==
--- NOTE | 2019-05-20 13:36 | RAD ---
XR Thoracic Spine 2 View HISTORY: Follow-up of T spine fracture COMPARISON: CT examination of 04/01/2019 FINDINGS: The T9 compression fracture now is a vertebral plana type deformity. The remainder the vert ebral bodies are normal in height. There is a mild kyphosis associated with the compression change. Right lung mass is demonstrated again. IMPRESSION: Marked compression changes of the T9 vertebral body with this would is essentially a vert ebral plana deformity.
== END 2019-05-20 12:56 | disposition home or self-care (01) ==
LOC: TBSIIMAG 12:55
PROVIDERS: ATTEND Neurological Surgery
DX: M54.6 Pain in thoracic spine (principal)
CPT/HCPCS: 72070

== ENCOUNTER 2019-06-17 13:46 | Outpatient (CLI) | payer MEDICARE ==
--- NOTE | 2019-06-17 14:09 | RAD ---
THORACIC SPINE: Three views. 06/17/19 HISTORY: Follow-up compression fracture. COMPARISON: 05/20/19. Severe compression deformity of the mid thoracic vertebrae which has been designated as T9 is again n oted. This is a vertebra plana type deformity and is unchanged in appearance from 05/20/19. Minimal re tropulsion at this site. The other thoracic vertebrae maintain height and alignment. No interval rueda ge noted. IMPRESSION: Stable thoracic spine findings with vertebra plana type compression at the T9 vertebrae. POS: JANES
== END 2019-06-17 13:47 | disposition home or self-care (01) ==
LOC: TBSIIMAG 13:46
PROVIDERS: ATTEND Neurological Surgery
DX: S22.089D Unspecified fracture of T11-T12 vertebra, subsequent encounter for fracture with routine healing (principal); S32.019D Unspecified fracture of first lumbar vertebra, subsequent encounter for fracture with routine healing
CPT/HCPCS: 72072

== ENCOUNTER 2019-07-29 13:02 | Outpatient (CLI) | payer MEDICARE ==
--- NOTE | 2019-07-29 14:21 | PET ---
EXAM: PET CT skull to mid thigh COMPARISON: 05/01/2019 HISTORY:Malignant neoplasm of the right upper lobe of the lung TECHNIQUE: A PET/CT was performed from the skull to the mid thigh after administration of 12.5 millic uries of F-18 FDG. Evaluation was performed on a [employer] workstation. FINDINGS: NECK: No areas of hypermetabolic activity CHEST: There is a 3.5 cm mass in the superior aspect of the left lower lobe with a max SUV value of 4 .0. There is a 2.6 cm mass in the inferior aspect of the right upper lobe with a max SUV value of 6.8. A positive right hilar lymph node is seen with max SUV value of 3.6. ABDOMEN/PELVIS: No areas of hypermetabolic activity SKELETON: There are diffuse areas of hypermetabolic activity in the skeleton. There is a long segment of abnormal appearance of the right posterior fifth rib which also demonstrates hypermetabolic activity. Osseous lesions are seen in the bones of the pelvis. There is an osseous lesion in the left proximal femoral diaphysis extending into the soft tissues of the anterior thigh. This has a max SUV value of 11.5. The osseous metastatic disease appears to have progressed compared to the prior ex am. Areas of hypermetabolic activity within the gluteal musculature may represent movement during the exam. CT images used for attenuation correction show a left-sided Mediport with its tip in the superior fan a cava.. IMPRESSION: 1. Bilateral suspicious hypermetabolic lung masses 2. Hypermetabolic metastatic right hilar lymph node 3. Diffuse osseous metastatic disease.
== END 2019-07-29 13:03 | disposition home or self-care (01) ==
LOC: PET 13:02
PROVIDERS: ATTEND Internal Medicine Hematology & Oncology
DX: C34.11 Malignant neoplasm of upper lobe, right bronchus or lung (principal); C79.51 Secondary malignant neoplasm of bone; C77.1 Secondary and unspecified malignant neoplasm of intrathoracic lymph nodes
CPT/HCPCS: 78815; A9552

== ENCOUNTER 2019-08-01 13:27 | Outpatient (CLI) | payer MEDICARE ==
--- NOTE | 2019-08-01 15:50 | CT ---
CT ANGIOGRAM THORAX WITH IV CONTRAST AND 3D RECONSTRUCTIONS: 08/01/19 HISTORY: Chest pain with movement and breathing. Left thigh pain. History of lung cancer. Patient is currently on chemotherapy. COMPARISON: PET CT scan on 05/01/19 and CTA chest on 04/01/19. Spiculated right upper lobe mass is again seen measu ring approximately 3.5 cm and overall similar to prior exam. The mass in the medial aspect of the sup erior segment left lower lobe is again seen, and this measures 3.6 cm x 2.7 cm with similar measureme nts on prior exam. There is a small right pleural effusion with trace left pleural effusion. Pleural effusion was not se en on prior PET CT exam, but pleural effusions were present on prior CTA of the chest. There is assoc iated passive atelectasis. There is a new noncalcified pulmonary nodule seen in the right upper lobe measuring 5 mm. No addition al pulmonary nodule or mass is seen. There is a mildly prominent subcarinal lymph node measuring 1.4 cm in short axis dimension. There is mild soft tissue density seen in the right hilar region similar to prior study. Also, likely related to lymphadenopathy similar to prior exam. The right hilar lymph node demonstrated FDG avidity on the prior PET CT exam on 05/01/19. The visualized upper abdomen demonstrates a grossly normal CT appearance for arterial phase of imagin g. No filling defects are seen in the pulmonary arteries to suggest a pulmonary embolus. Vascular calcification seen in the thoracic aorta. The thoracic aorta is normal in caliber without ev idence of an aortic dissection. Vascular calcification seen in the coronary arteries. As noted on the PET CT scan exam, there is mixed lytic and sclerotic appearance of the right posterio r fifth and to a lesser extent sixth rib suggesting metastatic disease. There is severe compression f racture of the T9 vertebral body with vertebra plana deformity now present related to pathological fr acture due to a metastatic lesion. There is mixed lytic and sclerotic density in the superior end lizzie te of the T11 vertebral body which is likely related to metastatic lesion. There are a few scattered sclerotic densities in additional thoracic vertebral bodies also likely related to additional metasta tic lesions. Remote right sided rib fractures are seen. POS: MAXIMUS
== END 2019-08-01 13:28 | disposition home or self-care (01) ==
LOC: BICCT 13:27
PROVIDERS: ATTEND Internal Medicine Hematology & Oncology
DX: C79.51 Secondary malignant neoplasm of bone (principal); C34.11 Malignant neoplasm of upper lobe, right bronchus or lung; R07.89 Other chest pain; M79.605 Pain in left leg; R06.02 Shortness of breath; M84.48XA Pathological fracture, other site, initial encounter for fracture; M89.9 Disorder of bone, unspecified
CPT/HCPCS: 71275

== ENCOUNTER 2019-10-15 13:01 | Outpatient (CLI) | payer MEDICARE ==
--- NOTE | 2019-10-15 16:06 | MRI ---
MRI of the thoracic spine with and without contrast: 10/15/2019 COMPARISON: 04/01/2019 HISTORY: Metastatic disease, recent CT angiogram demonstrated a pathologic burst fracture at T9 TECHNIQUE: Multiplanar multisequence MR imaging of the thoracic spine with and without contrast FINDINGS: There is diffuse increased T1 and T2 signal within the T7-T11 level suggesting prior radiat ion therapy. There is a burst fracture with near complete loss of vertebral body height at the T9 level. Prior examination demonstrated a metastatic lesion in this region. These findings are most con sistent with a pathologic fracture associated with a treated metastatic lesion of the T9 vertebral body. The degree of retropulsion of osseous fragments into the central canal at the T9 level causes a moderate degree of central canal stenosis. There is increased STIR signal within the interspinous ligament at the T8-9 and T9-10 level suggesting ligamentous injury. No additional fracture is evident on this exam. There is no significant anterolisthesis or retrolisthesis noted within the thoracic spine. At the T4 level and the T6 level there is abnormal decreased T1 signal within the bone marrow with zarco btle increased T2 signal and evidence of mild postcontrast enhancement suggesting osseous metastatic disease at T4 and T6. In addition, there are small lesions within T10, T11, and T12 sugges ting additional foci of osseous metastatic disease. Lesions within the T10, T11, and T12 vertebral bodies measure up to 7 mm, 1.1 cm, and 9 mm respectively. Aside from the central canal stenosis associated with the burst fracture at T9, no significant centra l canal stenosis within the thoracic spine. No abnormal signal intensity is identified within the thoracic cord. There is an incompletely assessed pulmonary parenchymal mass posterior to the proximal aspect of the descending thoracic aorta within the left lung measuring 3.2 cm. Incomplete assessment of the liver demonstrate multiple T2 hyperintense lesions measuring up to 2.3 cm, suspicious for hepatic metastati c disease. In addition, numerous lesions are noted within partially imaged posterior ribs, the most prominent lesion involving the right fifth rib, evidence of osseous metastatic disease. There is no anterolisthesis or retrolisthesis noted within the thoracic spine. There is bilateral latrell ral foraminal stenosis at T8-9 and T9-10 secondary to the T9 burst fracture. IMPRESSION: Burst fracture with severe loss of vertebral body height at T9 consistent with a pathologic fracture associated with a treated metastatic lesion. Abnormal signal intensity within the interspinous ligaments at T8-9 and T9-10 suggest ligamentous injury. Neurosurgical consultation may be beneficial. Numerous additional osseous metastatic lesions noted elsewhere within the thoracic spine as well as w ithin numerous incompletely imaged ribs. There are also findings concerning for malignancy within the left lung and the liver. Of note, many of these findings are also assessed on CT angiogram chest performed 08/01/2019 and whole body PET/CT performed 07/29/[address] Bashir, 10/15/19 at 4:00 PM. Message also sent via [employer] to krista Pablo ordering provider. Findings were then discussed with Aparna Gustafson at approximately 4:15 PM 10/15/2019. KAVITHA T Transcribed Date/Time: 10/15/2019 4:15 PM
== END 2019-10-15 13:02 | disposition home or self-care (01) ==
LOC: SCSMRI 13:01
PROVIDERS: ATTEND Nurse Practitioner Family
DX: C34.90 Malignant neoplasm of unspecified part of unspecified bronchus or lung (principal); S22.071A Stable burst fracture of T9-T10 vertebra, initial encounter for closed fracture
CPT/HCPCS: 72157

== ENCOUNTER 2019-10-24 08:52 | Outpatient (CLI) | payer MEDICARE ==
--- NOTE | 2019-10-24 15:08 | PET ---
EXAM: PET/CT HISTORY: History of malignant neoplasm of the upper lobe, right bronchus or lung with osseous metastatic disea se TECHNIQUE: PET scanning with CT attenuation correction was performed from the base of the brain to the proximal thighs following the intravenous administration of 12.5 millicuries [id number]. COMPARISON: Prior PET/CT dated July 29, 2019 and May 01, 2019. FINDINGS: Biodistribution:The biodistribution for the exam appears acceptable. Head and neck: There is appropriate background activity within the brain. No hypermetabolic lymphaden opathy or masses identified. Thorax: The right suprahilar lung mass is slightly larger in size than on the most recent comparison PET/CT. The peak SUV activity however is slightly less. The peak SUV activity on today's examination measures 5.09 were previously measured 7.95. The mass involving the superior segment of t he left lower lobe demonstrates diminished hypermetabolic uptake of 1.90 were previously measured 4.09. The lesion is relatively stable in size measuring 3.5 cm. There is scattered emphysema. There a re small bilateral pleural effusions. Abdomen and pelvis: There is expected background activity within the GI and systems.There is been interval development of hypermetabolic hepatic metastatic disease. One of the largest lesion is seen within the left hepatic lobe measuring 10 cm with a peak activity of 7.45. The largest within th e right hepatic lobe is seen within segment 6 measuring 6.3 cm with a peak activity of 5.19. There is a new hypermetabolic right adrenal nodule with a peak activity of 3.23 measuring 1.7 cm. The retro peritoneal nodule seen adjacent to the inferior pole of the left kidney is relatively stable in size measuring 2.1 cm. Peak activity of this nodule is now 4.03 were previously was 5.73. No hypermet abolic ascites is present. There is a moderate amount retained stool within the colon. There are moderate vascular calcifications seen involving the visualized vasculature. Osseous structures and skin: The hypermetabolic foci seen within the gluteal musculature bilaterally has increased in uptake suspicious for muscular metastatic lesions. The lesion within the anterior right gluteus medius is most prominent with a peak activity of 5.54. There is worsening hypermetaboli c osseous metastatic disease involving the proximal left femur, pelvis, thoracolumbar spine, sternum, ribs and bilateral humeral shafts. No definite pathologic fracture is evident. There is soft tissue gas seen to the right aspect of T7 that extends into the right extrapleural space and into the right epidural region of the T7 vertebra. Patient has a history of a steroid injection near the T 9 vertebral level on 10/23/2019. Gas is seen within the epidural space from T9 through the T7 level. IMPRESSION: Abnormal PET/CT. 1. Interval development of new hypermetabolic hepatic metastatic disease, new metastatic disease to t he right adrenal gland and worsening osseous metastatic disease. The nodular foci of hypermetabolic activity involving the right and left gluteal musculature has increased in prominence consistent with worsening muscular metastatic disease. 2. The right suprahilar mass and left lower lobe mass demonstrate decreased hypermetabolic activity; however, the right suprahilar mass is slightly larger in size whereas the superior segment left lower lobe lung lesion is stable in size. 3. The metastatic retroperitoneal nodule, adjacent to the inferior pole of the left kidney, is stable in size with slightly decreased hypermetabolic uptake. 4. Extrapleural gas seen to the right of the T7 vertebra extending into the epidural space posteriorl y of the T7 vertebral canal. This gas does extend to the level of the T9 vertebral body. The patient reportedly had a T9 epidural steroid injection on October 23, 2019.
== END 2019-10-24 08:53 | disposition home or self-care (01) ==
LOC: PET 08:52
PROVIDERS: ATTEND Internal Medicine Hematology & Oncology
DX: C79.51 Secondary malignant neoplasm of bone (principal); C34.11 Malignant neoplasm of upper lobe, right bronchus or lung; C77.0 Secondary and unspecified malignant neoplasm of lymph nodes of head, face and neck; C79.71 Secondary malignant neoplasm of right adrenal gland; R91.8 Other nonspecific abnormal finding of lung field; N28.89 Other specified disorders of kidney and ureter
CPT/HCPCS: 78815; A9552

== ENCOUNTER 2019-11-20 15:10 | Outpatient (CLI) | payer MEDICARE ==
--- NOTE | 2019-11-20 15:40 | RAD ---
XR Chest Pa Lat STANDARD HISTORY: Malignant neoplasm of the upper lobe, right bronchus, secondary malignant neoplasm of bone. Shortness of breath COMPARISON: 05/07/2019 FINDINGS: The heart size is normal. The aorta is tortuous. Left-sided Port-A-Cath remains in place. Small post erior pleural effusions are seen with subsegmental atelectatic change in the right perihilar region no lobar consolidation or pneumothoraces are identified. There are old right-sided rib fractures. IMPRESSION: Small bilateral pleural effusions.
== END 2019-11-20 15:11 | disposition home or self-care (01) ==
LOC: SCSRAD 15:10
PROVIDERS: ATTEND Internal Medicine Hematology & Oncology
DX: C34.11 Malignant neoplasm of upper lobe, right bronchus or lung (principal); R06.02 Shortness of breath; C79.51 Secondary malignant neoplasm of bone; J90 Pleural effusion, not elsewhere classified
CPT/HCPCS: 71046; 80053; 82248; 83615; 84100; 84550

== ENCOUNTER 2019-11-26 17:56 | Inpatient (IN) | payer MEDICARE ==
[2019-11-26 18:24] LABS: Hemoglobin 10.1 g/dL (14.0-18.0); Mean Corpuscular HGB CONC 30.1 g/dL (32.0-36.0); Mean Corpuscular Hemoglobin 25.6 pg (27.0-31.0); Mean Corpuscular Volume 85.1 fL (78.0-98.0); Mean Platelet Volume 8.7 fL (7.4-10.4); Platelet Count 227 thou/uL (130-400); RBC Distribution Width 18.5 % (11.5-14.5); Red Blood Cell (RBC) Count 3.97 mill/uL (4.70-6.10); White Blood Cell (WBC) Count 1.9 thou/uL (4.8-10.8)
[2019-11-26 18:30] LABS: INR-International Normal Ratio 1.2; PTT 29.8 SEC (22.9-36.1); Prothrombin Time 15.1 SEC (12.0-14.7)
--- NOTE | 2019-11-26 18:37 | CT ---
Exam: Head CT without contrast HISTORY: Altered mental status. Metastatic lung cancer. COMPARISON: none FINDINGS: Hemorrhage: No intraparenchymal hemorrhage or extra-axial hematoma. Brain parenchyma: Cortical lyn-white matter differentiation is preserved. No mass effect or midline shift. Basilar cisterns are patent. Ventricular system: Ventricles and sulci are patent and symmetric. Calvarium: Destructive lesion in the midline occipital calvarial measuring 2.8 cm, worrisome for a os seous metastatic deposit. Sinuses and mastoid air cells: Adequate aeration. IMPRESSION: 1. No evidence of a definite intraparenchymal metastatic lesion. 2. Osseous metastases involving the occipital calvarium.
--- NOTE | 2019-11-26 18:37 | RAD ---
Exam: Chest one view HISTORY:Tachypnea. Low O2 saturation. Chemotherapy. Lung cancer. Comparison: 05/07/2019, 11/26/2019 FINDINGS: Cardiac silhouette:Upper normal cardiac silhouette Lines and tubes: Stable right-sided Mediport catheter Aorta: Unremarkable Pulmonary vessels: Normal Costophrenic angles: Clear LUNGS: Decreased aeration of the right lung with rightward retraction of the trachea. Mild compensato ry hyperinflation of the left lung may be present. Known right lung mass is redemonstrated. Pneumothorax: None Osseous abnormalities: None IMPRESSION: Diminished right lung volume which may represent postobstructive atelectasis. Transcribed Date/Time: 11/26/2019 7:45 PM
[2019-11-26 18:43] LABS: Albumin 2.5 g/dL (3.4-4.8)
[2019-11-26 18:44] LABS: Band 18 % (5-11); Eosinophils 1 % (0-10); Hypochromia SLIGHT = 6-15 cells (100X) (0-5/hpf); Lymphocytes 8 % (21-51); MDiff Complete? YES; Monocytes 55 % (0-10); Neutrophil 14 % (42-75); Ovalocytes SLIGHT = 2-5 cells (100X) (0-1/hpf); Platelet Morphology Comment Appears Adequate; Polychromasia SLIGHT = 2-3 cells (100X) (0-2/hpf); Reactive Lymphocytes 4 % (0-10); Tear Drops SLIGHT = 2-5 cells (100X) (0-1/hpf)
[2019-11-26 18:45] LABS: Calcium 7.7 mg/dL (7.8-10.44); Chloride 89 mmol/L (98-107); Potassium 5.1 mmol/L (3.5-5.1); Sodium 120 mmol/L (136-145)
[2019-11-26 18:46] LABS: Globulin 2.5 g/dL (2.4-3.5); Glucose 116 mg/dL (80-115)
[2019-11-26 18:47] LABS: Carbon Dioxide 18 mmol/L (23-31)
[2019-11-26 18:49] LABS: Alkaline Phosphatase 393 U/L (40-110); Calc. Creatinine Clearance 0 mL/min (70-130); Estimated GFR-MDRD Greater than 90
[2019-11-26 18:50] LABS: BUN (Urea Nitrogen) 14 mg/dL (8.4-25.7)
[2019-11-26 18:51] LABS: AST (SGOT) 87 U/L (5-34)
[2019-11-26 18:52] LABS: ALT (SGPT) 47 U/L (8-55); CK (CPK) 365 U/L (30-200)
[2019-11-26] MEDS ORDERED: Piperacillin/Tazobactam 4.5 GM VIAL ONE (19:02)
[2019-11-26 19:29] LABS: Anion Gap 18 mmol/L (10-20)
[2019-11-26 21:13] LABS: Lactic Acid 1.6 mmol/L (0.5-2.2)
[2019-11-26] MEDS ORDERED: Sodium Chloride 0.9% 1,000 ML IV SCH (23:11)
[2019-11-26 23:18] VITALS: BMI 25.7
[2019-11-26] MEDS ORDERED: Cyclobenzaprine 10 MG TAB PO PRN (23:33)
[2019-11-26] MEDS ORDERED: Carvedilol 3.125 MG TAB PO SCH (23:45)
[2019-11-26] MEDS ORDERED: Atorvastatin Calcium 10 MG TAB PO SCH (23:45)
[2019-11-26] MEDS ORDERED: Morphine ER 15 MG TAB PO SCH (23:45)
[2019-11-27] MEDS ORDERED: Sodium Chloride 0.9% 1,000 ML IV SCH (00:25)
[2019-11-27] MEDS ORDERED: HYDROcodone/Acetaminophen 10/325 mg Tablet PO PRN (00:25)
[2019-11-27] MEDS ORDERED: Morphine ER 15 MG TAB PO SCH ×3 (01:00→09:00)
[2019-11-27] MEDS: MEROPENEM 1 GM/50 ML 1 GM in Premix Bag 1 BAG IVPB SCH ×3 (05:15→21:48)
[2019-11-27 05:18] LABS: Anion Gap 13 mmol/L (10-20); BUN (Urea Nitrogen) 13 mg/dL (8.4-25.7); Calc. Creatinine Clearance 131 mL/min (70-130); Calcium 7.6 mg/dL (7.8-10.44); Carbon Dioxide 23 mmol/L (23-31); Chloride 92 mmol/L (98-107); Estimated GFR-MDRD Greater than 90; Glucose 93 mg/dL (80-115); Potassium 4.3 mmol/L (3.5-5.1); Sodium 124 mmol/L (136-145)
[2019-11-27 05:42] LABS: Band 13 % (5-11); Hemoglobin 8.9 g/dL (14.0-18.0); Lymphocytes 15 % (21-51); MDiff Complete? YES; Mean Corpuscular HGB CONC 30.8 g/dL (32.0-36.0); Mean Corpuscular Hemoglobin 26.7 pg (27.0-31.0); Mean Corpuscular Volume 86.7 fL (78.0-98.0); Mean Platelet Volume 8.3 fL (7.4-10.4); Monocytes 47 % (0-10); Myelocyte 1 % (0-0); Neutrophil 24 % (42-75); Platelet Count 273 thou/uL (130-400); RBC Distribution Width 18.4 % (11.5-14.5); Red Blood Cell (RBC) Count 3.34 mill/uL (4.70-6.10); White Blood Cell (WBC) Count 2.3 thou/uL (4.8-10.8)
--- NOTE | 2019-11-27 07:36 | HP ---
ONCOLOGIST: Dr. Anthony Craft. CHIEF COMPLAINT: Shortness of breath x2 weeks, worsened in 2 days, associated with near syncope. HISTORY OF PRESENT ILLNESS: A 64-year-old male with past medical history of stage IV lung adenocarcinoma diagnosed in March 2019, followed by oncologist, Dr. Craft, with most recent October [address] scan revealing new metastasis to the liver and right adrenal gland, worsening bone metastasis, and increasing gluteal metastasis, recently changed from Keytruda and to Taxotere and Cyramza with last treatment 6 days ago, who presented to [facility] ER via EMS for almost 2-week history of significant worsening shortness of breath associated with diminished functional status and episode of near syncope at home today, prompting evaluation. According to the patient and spouse, the patient recently changed chemotherapy regimen and has not been tolerating it well. In the past week, he has felt extremely short of breath, doing menial tasks and has had multiple outpatient chest x-rays. In fact, today, he went for an outpatient chest x-ray prescribed by his oncologist and upon returning home, walking up a flight of stairs, was severely winded and was attempting to get into a chair, but fell to the ground and was noted by his to be disoriented, prompting her to call EMS. In the emergency room, the patient was placed on oxygen nasal cannula. Laboratory values revealed neutropenia and chemistries revealed multiple electrolyte derangements with hyponatremia, hypochloremia, non-anion gap metabolic acidosis, and lactic acidosis. A noncontrast head CT revealed a new osseous calvarial mets without intraparenchymal lesions. One-view chest x-ray suggested diminished right lung volumes, which may represent postobstructive atelectasis. The patient was administered weight based IV fluid bolus, IV vancomycin, IV Zosyn, and admitted for further inpatient evaluation to Oncology floor. At bedside, the patient feels okay, currently on oxygen nasal cannula. He corroborates history. He complains of chronic pain predominantly in his thoracic spine and notes recently having increasing abdominal pain and distention. He notes diminished oral intake over the past several days. He notes decreased urine output for the past several days as well. He offers no other acute complaints. Advanced directives were discussed with him and he would like to be maintained full code, but does not want to be in a prolonged vegetative state, spouse is present. PAST MEDICAL HISTORY: Stage IV lung adenocarcinoma, diagnosed in March 2019 with most recent PET-CT in October 2019 suggesting worsening metastasis to liver, right adrenal gland, bone, and gluteus; hypertension; chronic pain secondary to malignancy; hemochromatosis; dyslipidemia. PAST SURGICAL HISTORY: Left chest chemo port, tonsillectomy, shoulder meniscal surgery. SOCIAL HISTORY: The patient is , lives at home with his spouse. He denies tobacco use. He notes prior alcohol use, but has stopped since the cancer diagnosis. He does not use home oxygen. ALLERGIES: DOCUMENTED PENICILLIN, WHICH THE PATIENT REPORTS WAS AN ALLERGY IN FACT THAT HIS FATHER HAD AND DENIES EVER HAVING CHILDHOOD RASH OR REACTION OR ANAPHYLAXIS. REVIEW OF SYSTEMS: The patient reports having fevers of 100.6 at home. Pertinent positives as per HPI. Remainder of review of systems negative. MEDICATIONS: Reviewed as per admission medication reconciliation. FAMILY HISTORY: The patient's mother was diagnosed with lung cancer in her 80s. Hypertension also noted in family members. PHYSICAL EXAMINATION: VITAL SIGNS: Temperature 97.5, pulse 86, blood pressure 104/92, oxygen saturation 96% on 2 L nasal cannula, respirations 18 to 20. GENERAL APPEARANCE: This is an elderly male, pale and malaise in appearance, in no obvious distress, speaking in full complete sentences. HEENT: Normocephalic and atraumatic. No facial asymmetry. Pupils equally round. Extraocular muscles intact. No scleral icterus. Conjunctival pallor noted. Moist mucous membranes without oral or mucosal lesions. NECK: Supple. CARDIOVASCULAR: S1, S2. Regular rate and rhythm. No harsh murmurs. No chest wall tenderness to palpation. Left chest wall chemo port noted. LUNGS: Limited evaluation due to the patient's inability to sit up due to chronic thoracic back pain. Decreased inspiratory effort on bilateral anterior auscultation with poor air entry noted. No obvious wheezing or rales. ABDOMEN: Soft, mildly distended. Tenderness in the right upper quadrant. Bowel sounds normoactive. EXTREMITIES: No edema, cyanosis, or deformities noted. SKIN: Warm to touch without rash, pallor, or abrasion. LABORATORY VALUES: WBC of 1.9 with 14 neutrophils, 18 bands, 55 monocytes, and 8 lymphocytes. H and H 10.1/33.8, platelets 227. Coagulation profile reveals INR of 1.2. Sodium 120, potassium 5.1, chloride 89, bicarb 18, glucose 116, BUN and creatinine of 14/0.61. Lactic acid of 2.6 with repeat 1.6. Troponin I negative. BNP 75. Albumin 2.5. IMAGING: Noncontrast head CT done on 11/26/2019, reveals osseous calvarial mets with no intraparenchymal lesions. One-view chest x-ray on 11/26/2019, suggests diminished right lung volume, which may represent postobstructive atelectasis. ASSESSMENT: 1. Acute respiratory failure with hypoxia, likely secondary to obstructing lung tumor. The patient will be admitted as inpatient status and placed on Oncology floor. We will continue supportive therapies with oxygen nasal cannula, appropriate head of bed positioning, start scheduled nebulized bronchodilator therapy, empiric IV antibiotics for any postobstructive pneumonia, and consult Pulmonology and the patient's established oncologist. We will obtain CTA chest to evaluate for pulmonary embolism and reassess of lung tumor and any obstructive or postoperative lesions. 2. Febrile neutropenia likely secondary to stage IV lung adenocarcinoma and recent chemotherapy. 3. Possible sepsis secondary to febrile neutropenia. The patient has known stage IV lung adenocarcinoma and recent chemotherapy 6 days ago. He has received weight based IV fluid boluses, blood cultures, and empiric antibiotics with IV vancomycin and IV Zosyn in the ER. We will continue IV vancomycin, IV meropenem, maintenance IV fluids, follow cultures, placed on reverse neutropenic isolation, and monitor for correction of neutropenia. Oncology will be consulted to guide in possible granulocyte CSF therapy. 4. Hyponatremia, likely secondary to intravascular depletion and GI losses. The patient reports large volume diarrhea for the past several days and diminished oral intake. He has received IV fluid boluses in the ER and will continue isotonic saline, maintenance fluids, and repeat a.m. chemistries. 5. Lactic acidosis of unclear etiology. Possibly secondary to hypoxic respiratory failure . Notably downtrending. 6. Stage IV lung adenocarcinoma. This is a known diagnosis since March 2019. The patient is followed by oncologist, Dr. Craft and underwent recent PET scan on 10/24/2019 with last chemotherapy 6 days ago, recently changed to Taxotere and Cyramza secondary to our resistant tumor. October 2019 PET-CT scan noted with new liver metastasis, right adrenal metastasis, worsening bone metastasis, and increased gluteal metastasis as well as evidence of a right suprahilar and left lower lobe mass. Noncontrast head CT on ER admission notes osseous calvarial metastasis. Noted elevated alkaline phosphatase levels. 7. Chronic pain, likely secondary to malignancy. Continue MS Contin 45 mg every 8 hours scheduled and restart p.r.n. [place] tablets for breakthrough severe pain. Monitor for over-sedation. Monitor bowel regimen. 8. Hypertension, benign. Resume home oral antihypertensive medications for dyslipidemia, continue statin. 9. Code status: Full code as discussed with the patient, who states he has advanced directives in place. His spouse is his surrogate decision maker. 10. Deep venous thrombosis prophylaxis. Low molecular weight heparin. 11. Check a.m. labs on 11/27/2019. 12. The patient seen and examined on 11/26/2019. Job ID: [id number]
[2019-11-27] MEDS ORDERED: Carvedilol 3.125 MG TAB PO SCH (09:00)
[2019-11-27] MEDS: Tamsulosin HCl 0.4 MG CAP PO SCH (09:23)
[2019-11-27] MEDS: Fish Oil 1,000 MG CAP PO SCH (09:23)
[2019-11-27] MEDS: Dutasteride 0.5 MG CAP PO SCH (09:23)
[2019-11-27] MEDS: Morphine ER 15 MG TAB PO SCH ×2 (09:24→16:52)
[2019-11-27] MEDS: Multivitamin W/ Minerals 1 TAB PO SCH (09:24)
[2019-11-27] MEDS: Vancomycin HCl 1.25 GM in Sodium Chloride 0.9% 250 ML 250 ML IVPB SCH ×2 (09:26→19:55)
[2019-11-27] MEDS: Enoxaparin Sodium 40 MG/0.4 ML SYRINGE SC SCH (09:29)
--- NOTE | 2019-11-27 10:47 | CT ---
CTA THORAX WITH CONTRAST: 11/27/2019 (Computed Tomographic Angiography, chest(noncoronary) with contrast material, and image post processi ng) (PE protocol) HISTORY: A 64-year-old male with stage IV lung cancer who presents with dyspnea. Evaluate for pulmonary emboli sm and tumor obstruction of bronchus. COMPARISON: 08/01/2019 TECHNIQUE: IV injection of iodinated contrast: Isovue. Scan acquisition timing attempted to coincide with iodinated contrast bolus reaching maximal density in pulmonary arteries. 3D MIP reconstructions. FINDINGS: There is no pulmonary thromboembolism. There is no thoracic aortic aneurysm, dissection or rupture. Previously there was a very small right pleural effusion. Now that pleural effusion occupies approxim ately 15% to 20% volume of the dependent portion of the right hemithoracic cavity. There is a new contralateral small left pleural effusion, occupying approximately 15% volume of the l eft hemithoracic cavity, in the dependent portion also. The previously mentioned spiculated mass in the anterior segment of the right upper lobe, which is di fficult to measure because it is contiguous with and difficult to separate from post obstructive atel ectasis, all broadly abutting the superior surface of the right minor fissure, currently measures jeanette roximately 3.5 x 2.5 x 1.5 cm. It probably has not greatly changed in size. The subsegmental atelecta sis anterior to it, due to obstruction of bronchial branches, is also similar in size to previous sandoval dy. A small amount of soft tissue density material in the inferior aspect of the right hilum, causing chr onic high-grade narrowing of the proximal branches of the right middle lobe bronchus, is also unchang ed. No atelectasis or consolidation is present in the right middle lobe. In the medial upper aspect of the superior segment of the left lower lobe, there was previously an ap proximately 3.6 x 2.7 x 4 cm soft tissue density mass-like opacity. This has not significantly change d. Again noted are the destructive osseous lesions involving some of the right posterior and posterolate ral upper ribs. No pneumothorax or pulmonary edema. Small to moderate sized pericardial effusion is new since prior study. Nonspecific, mildly enlarged mediastinal lymph nodes, probably not greatly changed. Bilateral mainste m bronchi and trachea are patent and clear. There are permeative, heterogeneously ill-defined, low attenuation areas occupying almost the entire left lobe of the liver and some of the right lobe of the liver, consistent with metastatic involvemen t, new. There is another new finding of free fluid within the upper peritoneal cavity, especially ángela rounding the spleen. There is another new finding of edema throughout the upper mesentery. IMPRESSION: 1. No pulmonary thromboembolism. 2. Interval increase in size of small right pleural effusion, and new small left pleural effusion. 3. Anterior segment right upper lobe spiculated primary lung cancer, not greatly changed. 4. Associated subsegmental atelectasis due to bronchial obstruction in the anterior segment of the ri ght upper lobe, not significantly changed. 5. Chronic narrowing of proximal branch of right middle lobe bronchus by mild, probable right hilar l ymphadenopathy, unchanged. 6. New small to moderate sized pericardial effusion. 7. New finding of ascites. 8. New finding of very severe metastatic disease involving the liver. 9. Metastatic, destructive osseous lesions involving the right ribs, unchanged. jn[] POS: [facility]
--- NOTE | 2019-11-27 11:34 | CON ---
DATE OF CONSULTATION: REASON FOR CONSULTATION: Lung cancer. HISTORY OF PRESENT ILLNESS: is a pleasant 64-year-old gentleman, who has stage IV adenocarcinoma of the lung. He was diagnosed in March of last year. He was on maintenance Alimta and Keytruda until he had a PET scan in October, which showed interval development of new hepatic liver mets, worsening bone metastatic disease. His lung disease was mostly stable. He was switched to Taxotere and Cyramza IV chemotherapy. He received initial dose of Taxotere on 10/31, and he tolerated that well. On his 2nd cycle, Cyramza was added. This was on 11/20. That Sunday after treatment, he began to have abdominal pain. Sunday, Sunday, Sunday after treatment, he had large volume of diarrhea. He was complaining of shortness of breath. Yesterday, he was walking up steps, he got dizzy, short of breath and fell. He was having some confusion, so he was brought to the emergency room for evaluation. He underwent a brain CT, which showed no brain mets. There was a destructive lesion of the midline occipital calvarium, measuring 2.8 cm. The patient's sodium was 120. His bilirubin was elevated at 2. He was admitted for IV hydration and further workup. He has undergone a chest and thorax CT angiogram, results are currently pending. He has been getting IV fluids and antibiotics and is more lucid today. PAST MEDICAL HISTORY: 1. Stage IV adenocarcinoma of the lung with recent progression in the liver, bone, and muscle. 2. Hyperlipidemia. 3. Hypertension. PAST SURGICAL HISTORY: Bone biopsy. ALLERGIES: PENICILLIN. HOME MEDICATIONS: 1. Atorvastatin. 2. Carvedilol. 3. Dexamethasone. 4. Dutestaride. 5. Folic acid. 6. MiraLAX. 7. MS Contin 45 mg t.i.d. 8. Multivitamin. 9. [place] 10/325 p.r.n. 10. Flomax daily. FAMILY HISTORY: Noncontributory. SOCIAL HISTORY: . Lives with his . Has 2 children. Former smoker. Social drinker. No illicit drug use. REVIEW OF SYSTEMS: Positive for weakness, fatigue, and abdominal pain. PHYSICAL EXAMINATION: VITAL SIGNS: Temperature is 98.2, pulse is 80, respiratory rate 18, BP is 99/58 , and he is 98% on 2 L. GENERAL: This is a chronically ill-appearing male, in no acute distress. HEENT: Normocephalic and atraumatic. Pupils equal and reactive to light. NECK: Supple. CV: Regular rate and rhythm. LUNGS: Clear anterior. ABDOMEN: Soft, mildly tender to touch. Bowel sounds are positive. EXTREMITIES: No clubbing or cyanosis. SKIN: No rash. HEMATOLOGIC: No petechiae or purpura. NEUROLOGIC: Nonfocal. PERTINENT LABS AND X-RAYS: Current WBCs are 2.3, hemoglobin 8.9, hematocrit 29.0, platelet count is 273,000. He has 24% neutrophils, 13% bands, 15% lymphocytes. PT is 15.1, INR is 1.2, and PTT is 29.8. Sodium is 124, potassium 4.3, chloride 92 , CO2 is 23, BUN is 13, creatinine 0.62, lactic acid 1.6, calcium 7.6, bilirubin is 2, AST is 87, ALT is 47, alkaline phosphatase is 393. Troponin is negative. Total serum protein is 5, albumin 2.5, and globulin 2.5. Blood cultures are negative thus far. Radiology per HPI. ASSESSMENT: 1. Stage IV lung cancer with recent progression and change in chemotherapy. 2. Fatigue, weakness, and diarrhea secondary to chemo. 3. Dehydration. 4. Hyponatremia. 5. Altered mental status secondary to above. DISCUSSION: The patient's mental status has improved. He is alert and answering questions appropriately. His diarrhea has resolved as well. We would continue IV hydration and empiric antibiotics. Await results of the CT angio. He will likely need a dose adjustment in his current chemotherapy regimen as he is clearly having toxic side effects. I will discuss further with Dr. Craft. Thank you for the consult. Job ID: [id number] MTDD
[2019-11-27] MEDS ORDERED: Iopamidol 370 76% 100 ML VIAL ONE (14:24)
--- NOTE | 2019-11-27 18:46 | PDOC.HOSPP ---
- Subjective Encounter Date: 11/27/19 Encounter Time: 05:30 Subjective: Patient states he had some shortness of breath while going to the chair. After his chemotherapy last week he had some right chest soreness that he had never had before. No significant cough. Also felt cold lately - Objective Vital Signs & Weight: Vital Signs (12 hours) Temp Pulse Resp BP Pulse Ox 11/27/19 16:40 98.1 F 80 18 101/56 L 98 11/27/19 12:00 97.4 F L 92 18 103/72 95 11/27/19 09:59 95 11/27/19 08:00 98.2 F 80 18 99/58 L 98 Weight Admit Weight 174 lb 3 oz Weight 174 lb 3 oz Result Diagrams: 11/27/19 04:29 11/27/19 04:29 Hospitalist ROS - Review of Systems Constitutional: denies: fever, chills Cardiovascular: denies: chest pain, palpitations - Medication Medications: Active Medications Generic Name Dose Route Start Last Admin Trade Name Dave PRN Reason Stop Dose Admin Dutasteride 0.5 mg 11/27/19 09:00 11/27/19 09:23 Avodart PO 0.5 mg DAILY EVERARDO Administration Enoxaparin Sodium 40 mg 11/27/19 09:00 11/27/19 09:29 Lovenox SC 40 mg 0900 EVERARDO Administration Fish Oil 1,000 mg 11/27/19 09:00 11/27/19 09:23 Fish Oil PO 1,000 mg DAILY EVERARDO Administration Meropenem 1 gm/ Device 50 mls @ 100 mls/hr 11/27/19 06:00 11/27/19 14:20 IVPB 50 mls Q8HR EVERARDO Administration Vancomycin HCl 1.25 gm/ Sodium 250 mls @ 166.667 mls/hr 11/27/19 08:00 09:26 Chloride IVPB 250 mls 0800,1999 EVERARDO Administration Iron/Minerals/Multivitamins 1 tab 11/27/19 09:00 11/27/19 09:24 Theragran M PO 1 tab DAILY EVERARDO Administration Morphine Sulfate 45 mg 11/27/19 08:00 11/27/19 16:52 Ms Contin PO 45 mg 0800,1600,2359 EVERARDO Administration Sodium Chloride 10 ml 11/27/19 09:00 11/27/19 09:29 Flush - Normal Saline IVF 10 ml Q12HR EVERARDO Administration Tamsulosin HCl 0.4 mg 11/27/19 09:00 11/27/19 09:23 Flomax PO 0.4 mg DAILY EVERARDO Administration - Exam General Appearance: NAD, awake alert Eye: PERRL, anicteric sclera ENT: normocephalic atraumatic, no oropharyngeal lesions Neck: supple, symmetric, no JVD, no thyromegaly Heart: RRR, no murmur, no gallops, no rubs Respiratory: CTAB, no wheezes, no rales, no ronchi Gastrointestinal: soft, non-tender, non-distended, normal bowel sounds Extremities: no cyanosis, no clubbing, no edema Skin: normal turgor, no lesions, no rashes Neurological: cranial nerve grossly intact, normal sensation to touch, no focal deficits, no new deficit Musculoskeletal: normal tone, normal strength, no muscle wasting Psychiatric: normal affect, normal behavior, A&O x 3, oriented to person Hosp A/P - Plan CTA chest: no PE. Increase in size of small right pleural effusion, new left pleural effusion. RUL spiculated primary lung cancer. Small to moderate sized pericardial effusion is new. New fluid within upper peritoneal cavity. New finding of edema throughout upper mesentery. This is a 64 year old male with past medical history of stage IV lung cancer on chemotherapy who presented with near syncopal episode #Neutropenic fever - WBC 2.3, had fever of 101 at his facility - continue vanc and meropenem. Blood cultures negative. #Shortness of breath - possibly pericardial effusion vs pneumonia #Ascites #Postobstructive atelectasis - will obtain ECHO. Has moderate pericardial effusion on CTA. New left pleural effusion. Will consider IV lasix if sodium improves - continue vanc and meropenem. No pneumonia noted on CTA. No PE Stage IV lung cancer with metastases to the right ribs, liver, - oncology consulted, most likely will change his chemotherapy regimen Moderate pericardial effusion - will check ECHO - patient noted to be dehydrated on admission requiring IV fluids and hyponatremic - will hold lasix for now pending repeat BMP - cardio consult Hyponatremia - sodium 124, improved with IV fluids Lactic acidosis - improved with IV fluids Anemia - Hb dropped to 8 - check iron panel in am Code status: full code
[2019-11-27] MEDS ORDERED: Furosemide 20 MG/2 ML VIAL SLOW IVP SCH (19:00)
[2019-11-27 19:51] LABS: Anion Gap 12 mmol/L (10-20); BUN (Urea Nitrogen) 11 mg/dL (8.4-25.7); Calc. Creatinine Clearance 153 mL/min (70-130); Calcium 7.9 mg/dL (7.8-10.44); Carbon Dioxide 23 mmol/L (23-31); Chloride 94 mmol/L (98-107); Estimated GFR-MDRD Greater than 90; Glucose 112 mg/dL (80-115); Potassium 3.7 mmol/L (3.5-5.1); Sodium 125 mmol/L (136-145)
[2019-11-27] MEDS ORDERED: Cosyntropin 250 MCG VIAL SLOW IVP SCH (20:30)
[2019-11-27] MEDS: Atorvastatin Calcium 10 MG TAB PO SCH (21:48)
--- NOTE | 2019-11-27 22:20 | CON ---
DATE OF CONSULTATION: HISTORY OF PRESENT ILLNESS: Randy Hopkins is very pleasant gentleman, seen by my associate, Dr. Briones in the past. He had a lung mass with spinal metastasis and suggested a vertebral/bone biopsy for tissue for management. He was found to have non-small cell lung cancer. He is currently followed by the oncologist. He is on Alimta and Keytruda. PET scan in October showed new hepatic metastasis and progressive bone disease. His chest disease was felt to be stable. He started Taxotere and Cyramza IV therapy. He had his first dose of this on October 31. He presented with complaints of abdominal pain and diarrhea and associated shortness of breath. At this time, he says he is no longer short of breath. He was encephalopathic and subsequently he was admitted. Head CT did not show any structural brain lesions, but this was a non-contrast CT which would miss brain lesions most likely. His mental status has improved. States he is feeling better. We were consulted because of his history of lung cancer. PAST MEDICAL HISTORY: Remarkable for lipid disorder and hypertension. ALLERGIES: REPORTS PENICILLIN ALLERGY. MEDICATIONS: Have been reviewed. REVIEW OF SYSTEMS: Ten points otherwise negative. PHYSICAL EXAMINATION: GENERAL: He is in no distress. He is flat in bed. He denies dyspnea. He is afebrile. VITAL SIGNS: Heart rate is 80, respiratory rate is 18, oximetry is 98% on room air, and blood pressure 101/56. HEAD AND NECK: Unremarkable. He has alopecia as expected. LUNGS: Clear. HEART: Regular rhythm. No S3. ABDOMEN: Soft and nontender. EXTREMITIES: Without clubbing, cyanosis, or edema. LABORATORY DATA: White count was 1.9 yesterday, 2.3 today, hemoglobin 8.9, and platelets 273. Sodium 125, potassium 3.7, chloride 94, bicarb 23, BUN 11, and creatinine 0.53. BNP was 79. IMPRESSION: 1. Possible side effects of chemotherapy leading to his admission. 2. Confusion and hyponatremia. An ACTH stimulation test would be a reasonable thing to proceed with in the morning. 3. He appears to be improved and stable. We will be happy to follow the other physicians caring for him. I will let Dr. Briones know that he has been admitted to the hospital in the morning. Job ID: [id number]
[2019-11-28] MEDS: Morphine ER 15 MG TAB PO SCH ×4 (00:09→21:42)
[2019-11-28 04:04] LABS: Mean Corpuscular HGB CONC 31.1 g/dL (32.0-36.0); Mean Corpuscular Hemoglobin 26.5 pg (27.0-31.0); Mean Corpuscular Volume 85.3 fL (78.0-98.0); Mean Platelet Volume 7.8 fL (7.4-10.4); Platelet Count 288 thou/uL (130-400); RBC Distribution Width 18.4 % (11.5-14.5); Red Blood Cell (RBC) Count 3.38 mill/uL (4.70-6.10); White Blood Cell (WBC) Count 1.9 thou/uL (4.8-10.8)
[2019-11-28 04:21] LABS: Anion Gap 12 mmol/L (10-20); BUN (Urea Nitrogen) 9 mg/dL (8.4-25.7); Calc. Creatinine Clearance 162 mL/min (70-130); Calcium 7.7 mg/dL (7.8-10.44); Carbon Dioxide 24 mmol/L (23-31); Chloride 95 mmol/L (98-107); Estimated GFR-MDRD Greater than 90; Glucose 118 mg/dL (80-115); Potassium 3.9 mmol/L (3.5-5.1); Sodium 127 mmol/L (136-145)
[2019-11-28] MEDS: MEROPENEM 1 GM/50 ML 1 GM in Premix Bag 1 BAG IVPB SCH ×3 (05:54→21:41)
[2019-11-28 07:52] LABS: Vancomycin, Trough 12.5 ug/mL
[2019-11-28] MEDS: Vancomycin HCl 1.25 GM in Sodium Chloride 0.9% 250 ML 250 ML IVPB SCH ×2 (08:44→19:21)
[2019-11-28] MEDS: Fish Oil 1,000 MG CAP PO SCH (08:45)
[2019-11-28] MEDS: Multivitamin W/ Minerals 1 TAB PO SCH (08:45)
[2019-11-28] MEDS: Tamsulosin HCl 0.4 MG CAP PO SCH (08:45)
[2019-11-28] MEDS: Enoxaparin Sodium 40 MG/0.4 ML SYRINGE SC SCH (08:45)
[2019-11-28] MEDS: Dutasteride 0.5 MG CAP PO SCH (08:46)
--- NOTE | 2019-11-28 09:05 | PDOC.HOSPP ---
- Subjective Encounter Date: 11/28/19 Encounter Time: 09:03 Subjective: The patient still reports shortness of breath, not much improvement. Denies cough, no chills. Daughter is concerned about confusion. Says he has some difficulty finishing sentences. Also was saying that he hears music when there is no music playing. She thought it was from low sodium, but sodium has improved to 127 and she has only seen mild improvement - Objective Vital Signs & Weight: Vital Signs (12 hours) Temp Pulse Resp BP BP Pulse Ox 11/28/19 08:00 97.8 F 86 18 111/64 96 11/28/19 04:14 98.8 F 90 18 119/66 95 11/28/19 00:06 97.7 F 92 16 117/63 97 Weight Admit Weight 174 lb 3 oz Weight 174 lb 3 oz I&O: 11/27/19 11/28/19 11/29/19 06:59 06:59 06:59 Intake Total 1050 Output Total 1150 Balance -100 Result Diagrams: 11/28/19 03:54 11/28/19 03:54 Hospitalist ROS - Review of Systems Constitutional: denies: fever, chills - Medication Medications: Active Medications Generic Name Dose Route Start Last Admin Trade Name Freq PRN Reason Stop Dose Admin Atorvastatin Calcium 10 mg 11/27/19 21:00 11/27/19 21:48 Lipitor PO 10 mg HS EVERARDO Administration Cosyntropin 250 mcg 11/27/19 20:30 11/28/19 08:46 Cortrosyn SLOW IVP 250 mcg WILLCALL EVERARDO Administration Dutasteride 0.5 mg 11/27/19 09:00 11/28/19 08:46 Avodart PO 0.5 mg DAILY EVERARDO Administration Enoxaparin Sodium 40 mg 11/27/19 09:00 11/28/19 08:45 Lovenox SC 40 mg 0900 EVERARDO Administration Fish Oil 1,000 mg 11/27/19 09:00 11/28/19 08:45 Fish Oil PO 1,000 mg DAILY EVERARDO Administration Meropenem 1 gm/ Device 50 mls @ 100 mls/hr 11/27/19 06:00 11/28/19 05:54 IVPB 50 mls Q8HR EVERARDO Administration Vancomycin HCl 1.25 gm/ Sodium 250 mls @ 166.667 mls/hr 11/27/19 08:00 08:44 Chloride IVPB 250 mls EVERARDO Administration Iron/Minerals/Multivitamins 1 tab 11/27/19 09:00 11/28/19 08:45 Theragran M PO 1 tab DAILY EVERARDO Administration Morphine Sulfate 45 mg 11/28/19 06:00 11/28/19 06:30 Ms Contin PO 45 mg Q8HR EVERARDO Administration Sodium Chloride 10 ml 11/27/19 09:00 11/28/19 08:46 Flush - Normal Saline IVF 10 ml Q12HR EVERARDO Administration Tamsulosin HCl 0.4 mg 11/27/19 09:00 11/28/19 08:45 Flomax PO 0.4 mg DAILY EVERARDO Administration - Exam General Appearance: NAD, awake alert Eye: PERRL, anicteric sclera ENT: normocephalic atraumatic, no oropharyngeal lesions Neck: supple, no JVD Heart: RRR, no murmur, no gallops, no rubs Respiratory - other findings: crackles on the left side, right side sounds clear Gastrointestinal: soft Gastrointestinal - other findings: firm to palpation, tympanic. Possibly some hepatomegaly. RUQ tenderness Extremities: no cyanosis, no clubbing, no edema Hosp A/P - Plan CTA chest: no PE. Increase in size of small right pleural effusion, new left pleural effusion. RUL spiculated primary lung cancer. Small to moderate sized pericardial effusion is new. New fluid within upper peritoneal cavity. New finding of edema throughout upper mesentery. CT Head: osseous metastases involving occipital calvarium This is a 64 year old male with past medical history of stage IV lung cancer on chemotherapy who presented with near syncopal episode #Neutropenic fever #Anemia - WBC 2.3, had fever of 101 at his facility. WBC has come down - continue vanc and meropenem. Blood cultures negative. - Hb 9, check B12 and folate and iron panel #Shortness of breath - possibly pericardial effusion vs pleural effusion vs pneumonia #Ascites #Postobstructive atelectasis - ECHO pending for pericardial effusion. Also has bilateral pleural effusions. Will repeat chest Xray today, give 20 mg IV lasix. Per cardiology will defer to CT surgery depending on size of pericardial effusion - continue vanc and meropenem Confusion/hallucinations - CT scan showed metastatic lesion in occipital calvarium - will check MRI brain to rule out metastases Stage IV lung cancer with metastases to the right ribs, liver, - oncology consulted, most likely will change his chemotherapy regimen Hyponatremia - improved to 127, continue to monitor - will do cortisol testing Lactic acidosis - improved with IV fluids Code status: full code
--- NOTE | 2019-11-28 09:22 | RAD ---
EXAM: Single view of the chest HISTORY: Shortness of breath COMPARISON: 11/26/2019 FINDINGS: Single view of the chest shows a normal sized cardiomediastinal silhouette. The Mediport i s unchanged in position. There is a stable right hilar density. The bones are unremarkable. IMPRESSION: Stable right hilar mass
[2019-11-28 09:48] LABS: Iron 12 ug/dL (65-175); Iron Binding Capacity, Total 93 mcg/dL (261-462)
[2019-11-28] MEDS ORDERED: Furosemide 20 MG/2 ML VIAL SLOW IVP SCH (10:00)
[2019-11-28 11:15] LABS: Vitamin B12 Greater than 2000 pg/mL (211-911)
[2019-11-28 11:23] LABS: Ferritin 2131.27 ng/mL (22-322)
--- NOTE | 2019-11-28 12:45 | ULT ---
US Abdomen Limited: 11/28/2019 9:01 AM CLINICAL HISTORY: Abdominal swelling. Evaluate for ascites.. STUDY: Limited ultrasound of abdomen. COMPARISON: None. FINDINGS: All 4 quadrants of the abdomen were interrogated. A small amount of fluid is seen in the right lower quadrant of the abdomen. No fluid is seen in any of the other 3 quadrants. IMPRESSION: No significant ascites
--- NOTE | 2019-11-28 13:23 | PRG ---
DATE OF SERVICE: 11/28/2019 SUBJECTIVE: The patient is very weak. He cannot sit up. He is having shortness of breath with any exertion. OBJECTIVE: VITAL SIGNS: Temperature 97.7, pulse 86, respirations 18, O2 saturation 96%, and blood pressure 115/74. HEENT: Remarkable for alopecia. NECK: No JVD. LUNGS: Inspiratory crackles at the bases. CARDIAC: S1 and S2. Regular. ABDOMEN: Soft. EXTREMITIES: No edema. LABORATORY DATA: Sodium 127, potassium 3.9, BUN 9, creatinine 0.5, glucose 118. White blood cell count 1.9, hematocrit 28.8, and platelet count 288. ASSESSMENT: 1. Non-small cell lung cancer, which appears to be worsening despite aggressive treatment. 2. Possible debilitation secondary to chemotherapy. 3. Hyponatremia and confusion. PLAN: I really think that palliative care needs to be involved as the patient is either suffering from advanced effects of the cancer or he has deteriorated to the point where he cannot tolerate chemotherapy anymore. Code status needs to be discussed with the family. I did have some of these discussions, but they needed time to process this information. It would be nice if the Oncology team also had sean discussions with the patient about goals of care. Job ID: [id number]
--- NOTE | 2019-11-28 13:37 | MRI ---
Exam: Brain MRI without contrast HISTORY: Confusion. Hallucinations lung cancer. COMPARISON: None FINDINGS: Limited evaluation due to motion degradation Calvarial marrow signal intensity: Appropriate T1 signal Gradient echo sequence: No hemorrhage Brain parenchyma: No mass, mass effect or midline shift. Brain volume, age-appropriate. Cortical lyn-white matter differentiation: Preserved Restricted diffusion: Central arterial flow voids are maintained. Absent restricted diffusion White matter signal intensities: T2, FLAIR white matter hyperintensities due to chronic small vessel ischemic changes Sinuses: Adequate aeration of the paranasal sinuses and mastoid air cells. IMPRESSION: 1. Limited evaluation due to motion degradation. 2. Absent restricted diffusion. No acute infarct.
--- NOTE | 2019-11-28 15:13 | PQF ---
SABINO BAER, [facility] [id number] CLINICAL DOCUMENTATION IMPROVEMENT CLARIFICATION FORM: ICD-10 Updated PLEASE DO AN ADDENDUM TO THE PROGRESS NOTE WITH ANY DOCUMENTATION UPDATES OR ADDITIONS AND CARRY THROUGH TO DC SUMMARY. THANK YOU. DATE: 11/28/2019 ATTN:DR. Simon IGLESIAS Please exercise your independent, professional judgment in responding to the clarification form. Clinical indicators are provided on the bottom of this form for your review. Please check appropriate box(s): Encephalopathy: Type: [ X ] Acute [ ] Subacute [ ] Chronic Etiology: [ ] Hypertensive [ X ] Metabolic [ ] Toxic [ ] Hepatic with Coma [ ] Hepatic w/o Coma [ ] Hypoxic [ ] Septic [ ] Wernickes [ ] Drug induced: [ ] Unspecified [ ] in the setting of underlying dementia [ ] Other (please specify) [ ] Other diagnosis [ ] Unable to determine In addition, please specify: Present on Admission (POA): [ ] Yes [ ] No [ ] Unable to determine For continuity of documentation, please document condition throughout progress notes and discharge summary. Thank You. CLINICAL INDICATORS - SIGNS / SYMPTOMS / LABS / RESULTS AND LOCATION IN EMR 11/26 ED REPORT: TRIAGE/ PT HAS BECOME MORE CONFUSED, AMS THE PAST FEW DAYS, UNABLE TO FOLLOW COMMANDS. ED PHYSICIAN FINAL DX: AMS, SEPSIS, HYPONATREMIA 11/[address] IMPRESSION: OSSEOUS METASTASIS INVOLVING THE OCCIPITAL CALVARIUM. NO EVIDENCE OF A DEFINITE INTRAPARENCHYMAL METASTATIC LESION. 11/27 H&P (FAJARDO) HPI: REPORTED BY THAT PATIENT IS DISORIENTED, AND HAD A FALL PRIOR TO PRESENTING TO THE ED. 11/27 CONSULT (HERLINDA) ASSESSMENT: 1). STAGE IV LUNG CA W PROGRESSION AND CHANGE IN CHEMOTHERAPY, FATIGUE, WEAKNESS, DIARRHEA 2/2 TO CHEMO; DEHYDRATION, HYPONATREMIA, ALTERED MENTAL STATUS 2/2 TO ABOVE. 11/27 CONSULT (SONY) HE WAS ENCEPHALOPATHIC AND SUBSEQUENTLY HE WAS ADMITTED. IMPRESSION: 2). CONFUSION AND HYPONATREMIA. 11/28 BRAIN MRI : FINDINGS: BRAIN PARENCHYMA, NO MASS, MASS EFFECT OR MIDLINE SHIFT. IMPRESSION: 1). LIMITED EVALUATION D/T MOTION DEGRADATION 2). ABSENT RESTRICTED DIFFUSION. NO ACUTE INFARCT. 11/28 PN (KELSIE) DAUGHTER IS CONCERNED ABOUT CONFUSION. SAYS HE HAS SOME DIFFICULTY FINISHING SENTENCES. ALSO WAS SAYING HE HEARS MUSIC WHEN THERE IS NO MUSIC PLAYING . A/P: CONFUSION/HALLUCINATIONS 11/28 PN (CELIO) ASSESSMENT: 3)/ HYPONATREMIA AND CONFUSION RISK: DX HYPONATREMIA, LACTIC ACIDOSIS, STAGE IV ADENOCARCINOMA (H&P/FAJARDO) 11/27 TREATMENTS: SUPPLEMANTAL OXYGEN (11/26-11/27) BRAIN CT (11/26) BRAIN MRI ( 11/28) THANK YOU ! NITA (This form is maintained as a part of the permanent medical record) 2015 [employer] All Rights Reserved LUIS [email or web address] [phone] MTDD
--- NOTE | 2019-11-28 15:25 | PDOC.MOPN ---
Interval History: still have episodic confusion. Weak - Vital Signs Vital Signs: Vital Signs (12 hours) Temp Pulse Resp BP BP Pulse Ox 11/28/19 12:00 97.7 F 86 18 115/74 96 11/28/19 08:00 97.8 F 86 18 111/64 96 11/28/19 04:14 98.8 F 90 18 119/66 95 Weight Admit Weight 174 lb 3 oz Weight 174 lb 3 oz - Physical Exam General: Alert, Oriented x3, No acute distress HEENT: Atraumatic, PERRLA, EOMI, Mucous membr. moist/pink Lungs: Clear to auscultation, Normal air movement Cardiovascular: Regular rate, Normal S1, Normal S2, No murmurs, Gallops, Rubs Abdomen: Other (mild tenderness) Extremities: No clubbing, No cyanosis, No edema, Normal pulses, No tenderness/ swelling Skin: No rashes, No breakdown, No significant lesion Neurological: Normal speech - Labs Result Diagrams: 11/28/19 03:54 11/28/19 03:54 Lab results: Laboratory Results - last 24 hr 11/28/19 09:52: Folate 15.00 11/28/19 09:52: Ferritin 2131.27 H, Vitamin B12 Greater than 2000 H 11/28/19 07:22: Vancomycin Trough 12.5 11/28/19 03:54: Iron 12 L, TIBC 93 L, % Saturation 13 L 11/28/19 03:54: WBC 1.9 L, RBC 3.38 L, Hgb 9.0 L, Hct 28.8 L, MCV 85.3, MCH 26.5 L, MCHC 31.1 L, RDW 18.4 H, Plt Count 288, MPV 7.8 11/28/19 03:54: Sodium 127 L, Potassium 3.9, Chloride 95 L, Carbon Dioxide 24, Anion Gap 12, BUN 9, Creatinine 0.50 L, Estimated GFR (MDRD) Greater than 90, Glucose 118 H, Calcium 7.7 L 11/28/19 03:30: Cortisol Response 11/27/19 19:17: Sodium 125 L, Potassium 3.7, Chloride 94 L, Carbon Dioxide 23, Anion Gap 12, BUN 11, Creatinine 0.53 L, Estimated GFR (MDRD) Greater than 90, Glucose 112, Calcium 7.9 Status: lab reviewed by me A/P - Problem (1) Lung cancer Current Visit: Yes Code(s): C34.90 - MALIGNANT NEOPLASM OF UNSP PART OF UNSP BRONCHUS OR LUNG Status: Acute (2) Hyponatremia Current Visit: No Code(s): E87.1 - HYPO-OSMOLALITY AND HYPONATREMIA Status: Acute - Plan Plan: long conversions regarding illness. He understands that all care is palliative. His performance status was better prior to last cycle. Some of his weakness is related to chemo. However, he understands that if not better by Sunday, may need skilled unit and holding chemo indefinitely.
[2019-11-28] MEDS: Atorvastatin Calcium 10 MG TAB PO SCH (21:42)
[2019-11-29] MEDS: Morphine ER 15 MG TAB PO SCH ×3 (06:11→20:51)
[2019-11-29] MEDS: MEROPENEM 1 GM/50 ML 1 GM in Premix Bag 1 BAG IVPB SCH ×2 (06:11→13:24)
[2019-11-29 08:28] LABS: Hemoglobin 8.6 g/dL (14.0-18.0); Mean Corpuscular Hemoglobin 26.5 pg (27.0-31.0); Mean Corpuscular Volume 85.5 fL (78.0-98.0); Mean Platelet Volume 7.8 fL (7.4-10.4); Platelet Count 343 thou/uL (130-400); RBC Distribution Width 18.7 % (11.5-14.5); Red Blood Cell (RBC) Count 3.25 mill/uL (4.70-6.10)
[2019-11-29 08:36] LABS: ALT (SGPT) 27 U/L (8-55); AST (SGOT) 55 U/L (5-34); Alkaline Phosphatase 321 U/L (40-110); Anion Gap 10 mmol/L (10-20); BUN (Urea Nitrogen) 8 mg/dL (8.4-25.7); Bilirubin, Total 0.8 mg/dL (0.2-1.2); Calc. Creatinine Clearance 185 mL/min (70-130); Calcium 7.3 mg/dL (7.8-10.44); Carbon Dioxide 25 mmol/L (23-31); Chloride 94 mmol/L (98-107); Estimated GFR-MDRD Greater than 90; Globulin 2.4 g/dL (2.4-3.5); Glucose 108 mg/dL (80-115); Potassium 3.8 mmol/L (3.5-5.1); Protein, Total 4.4 g/dL (5.8-8.1); Sodium 125 mmol/L (136-145)
[2019-11-29 09:05] LABS: Band 6 % (5-11); Hypochromia SLIGHT = 6-15 cells (100X) (0-5/hpf); Large Platelets SLIGHT; Lymphocytes 6 % (21-51); MDiff Complete? YES; Metamyelocyte 2 % (0-0); Monocytes 36 % (0-10); Neutrophil 46 % (42-75); Ovalocytes SLIGHT = 2-5 cells (100X) (0-1/hpf); Platelet Morphology Comment Appears Adequate; Reactive Lymphocytes 4 % (0-10); Vacuoles SLIGHT
[2019-11-29] MEDS: Vancomycin HCl 1.25 GM in Sodium Chloride 0.9% 250 ML 250 ML IVPB SCH (09:25)
[2019-11-29] MEDS: Dutasteride 0.5 MG CAP PO SCH (09:26)
[2019-11-29] MEDS: Tamsulosin HCl 0.4 MG CAP PO SCH (09:26)
[2019-11-29] MEDS: Polyethylene Glycol 3350 17 GM Packet PO PRN (09:27)
[2019-11-29] MEDS: Fish Oil 1,000 MG CAP PO SCH (09:27)
[2019-11-29] MEDS: Multivitamin W/ Minerals 1 TAB PO SCH (09:27)
[2019-11-29] MEDS: Enoxaparin Sodium 40 MG/0.4 ML SYRINGE SC SCH (09:27)
--- NOTE | 2019-11-29 14:34 | PDOC.HOSPP ---
- Subjective Encounter Date: 11/29/19 Encounter Time: 14:32 Subjective: was seen today in follow-up of neutropenic fever. He says he continues to feel short of breath. This has been a problem for several weeks. - Objective Vital Signs & Weight: Vital Signs (12 hours) Temp Pulse Resp BP BP Pulse Ox 11/29/19 11:28 97.9 F 95 15 124/77 97 11/29/19 08:00 96 11/29/19 07:28 97.9 F 94 15 121/74 96 11/29/19 04:16 97.7 F 100 16 124/74 95 Weight Admit Weight 174 lb 3 oz Weight 174 lb 3 oz I&O: 11/28/19 11/29/19 11/30/19 06:59 06:59 06:59 Intake Total 1050 2800 Output Total 1150 1375 Balance -100 1425 Result Diagrams: 11/29/19 08:05 11/29/19 08:05 Hospitalist ROS - Medication Medications: Active Medications Generic Name Dose Route Start Last Admin Trade Name Dave PRN Reason Stop Dose Admin Atorvastatin Calcium 10 mg 11/27/19 21:00 11/28/19 21:42 Lipitor PO 10 mg HS EVERARDO Administration Cosyntropin 250 mcg 11/27/19 20:30 11/28/19 08:46 Cortrosyn SLOW IVP 250 mcg WILLCALL EVERARDO Administration Dutasteride 0.5 mg 11/27/19 09:00 11/29/19 09:26 Avodart PO 0.5 mg DAILY EVERARDO Administration Enoxaparin Sodium 40 mg 11/27/19 09:00 11/29/19 09:27 Lovenox SC 40 mg 0900 EVERARDO Administration Fish Oil 1,000 mg 11/27/19 09:00 11/29/19 09:27 Fish Oil PO 1,000 mg DAILY EVERARDO Administration Meropenem 1 gm/ Device 50 mls @ 100 mls/hr 11/27/19 06:00 11/29/19 13:24 IVPB 50 mls Q8HR EVERARDO Administration Vancomycin HCl 1.25 gm/ Sodium 250 mls @ 166.667 mls/hr 11/27/19 08:00 09:25 Chloride IVPB 250 mls 08,1999 EVERARDO Administration Iron/Minerals/Multivitamins 1 tab 11/27/19 09:00 11/29/19 09:27 Theragran M PO 1 tab DAILY EVERARDO Administration Morphine Sulfate 45 mg 11/28/19 06:00 11/29/19 13:27 Ms Contin PO 45 mg Q8HR EVERARDO Administration Polyethylene Glycol 17 gm 11/27/19 00:25 11/29/19 09:27 Miralax PO 17 gm DAILY PRN Administration Constipation Sodium Chloride 10 ml 11/27/19 09:00 11/29/19 09:27 Flush - Normal Saline IVF 10 ml Q12HR EVERARDO Administration Tamsulosin HCl 0.4 mg 11/27/19 09:00 11/29/19 09:26 Flomax PO 0.4 mg DAILY EVERARDO Administration - Exam Eye: PERRL Heart: RRR, no murmur, no gallops, no rubs, normal peripheral pulses Respiratory: CTAB (with the exception of occasional rales at the bases) Gastrointestinal: soft, non-tender, non-distended, normal bowel sounds, no palpable masses, no hepatomegaly, no splenomegaly Extremities: no cyanosis, no clubbing, no edema Hosp A/P (1) Neutropenic fever Code(s): D70.9 - NEUTROPENIA, UNSPECIFIED; R50.81 - FEVER PRESENTING WITH CONDITIONS CLASSIFIED ELSEWHERE Status: Acute (2) Hyponatremia Code(s): E87.1 - HYPO-OSMOLALITY AND HYPONATREMIA Status: Acute (3) HTN (hypertension) Code(s): I10 - ESSENTIAL (PRIMARY) HYPERTENSION Status: Chronic Qualifiers: Hypertension type: essential hypertension Qualified Code(s): I10 - Essential (primary) hypertension - Plan * Neutropenic fever- he is no longer neutropenic, with an ANC above 2K. His cultures are negative * Will scale back on his antibiotics, and change to Levaquin * Shortness of breath- ? etiology- could this be the way he senses fatigue ? 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 His response to Cortisol was appropriate. therefore no evidence of adrenal insufficiency * Echo results were noted * Continue PT/OT for deconditioning
[2019-11-29] MEDS: Atorvastatin Calcium 10 MG TAB PO SCH (20:50)
[2019-11-30 04:56] LABS: Band 11 % (5-11); Elliptocytes SLIGHT = 2-5 cells (100X) (0-1/hpf); Hemoglobin 8.8 g/dL (14.0-18.0); Lymphocytes 7 % (21-51); MDiff Complete? YES; Mean Corpuscular HGB CONC 31.1 g/dL (32.0-36.0); Mean Corpuscular Hemoglobin 26.8 pg (27.0-31.0); Mean Corpuscular Volume 86.2 fL (78.0-98.0); Mean Platelet Volume 7.4 fL (7.4-10.4); Monocytes 28 % (0-10); Neutrophil 54 % (42-75); Platelet Count 351 thou/uL (130-400); Platelet Morphology Comment Appears Adequate; RBC Distribution Width 18.4 % (11.5-14.5); White Blood Cell (WBC) Count 7.2 thou/uL (4.8-10.8)
[2019-11-30 05:00] LABS: Anion Gap 10 mmol/L (10-20); BUN (Urea Nitrogen) 10 mg/dL (8.4-25.7); Calc. Creatinine Clearance 177 mL/min (70-130); Calcium 7.5 mg/dL (7.8-10.44); Carbon Dioxide 27 mmol/L (23-31); Chloride 93 mmol/L (98-107); Estimated GFR-MDRD Greater than 90; Glucose 129 mg/dL (80-115); Sodium 126 mmol/L (136-145)
[2019-11-30] MEDS: Morphine ER 15 MG TAB PO SCH ×3 (07:08→20:53)
[2019-11-30] MEDS: Tamsulosin HCl 0.4 MG CAP PO SCH (08:59)
[2019-11-30] MEDS: Multivitamin W/ Minerals 1 TAB PO SCH (08:59)
[2019-11-30] MEDS: Dutasteride 0.5 MG CAP PO SCH (08:59)
[2019-11-30] MEDS: Fish Oil 1,000 MG CAP PO SCH (08:59)
[2019-11-30] MEDS: Enoxaparin Sodium 40 MG/0.4 ML SYRINGE SC SCH (09:00)
--- NOTE | 2019-11-30 11:01 | PDOC.HOSPP ---
- Subjective Encounter Date: 11/30/19 Encounter Time: 10:59 Subjective: was seen today in follow-up of neutropenic fever, and generalized weakness. He does not have any new complaints. He was up with PT yesterday. - Objective Vital Signs & Weight: Vital Signs (12 hours) Temp Pulse Resp BP Pulse Ox 11/30/19 09:10 96 11/30/19 08:25 98.1 F 99 16 119/72 96 Weight Admit Weight 174 lb 3 oz Weight 174 lb 3 oz I&O: 11/29/19 11/30/19 12/01/19 06:59 06:59 06:59 Intake Total 2800 1200 Output Total 1375 800 Balance 1425 400 Result Diagrams: 11/30/19 04:30 11/30/19 04:30 Hospitalist ROS - Medication Medications: Active Medications Generic Name Dose Route Start Last Admin Trade Name Freq PRN Reason Stop Dose Admin Atorvastatin Calcium 10 mg 11/27/19 21:00 11/29/19 20:50 Lipitor PO 10 mg HS EVERARDO Administration Cosyntropin 250 mcg 11/27/19 20:30 11/28/19 08:46 Cortrosyn SLOW IVP 250 mcg WILLCALL EVERARDO Administration Dutasteride 0.5 mg 11/27/19 09:00 11/30/19 08:59 Avodart PO 0.5 mg DAILY EVERARDO Administration Enoxaparin Sodium 40 mg 11/27/19 09:00 11/30/19 09:00 Lovenox SC 40 mg 0900 EVERARDO Administration Fish Oil 1,000 mg 11/27/19 09:00 11/30/19 08:59 Fish Oil PO 1,000 mg DAILY EVERARDO Administration Iron/Minerals/Multivitamins 1 tab 11/27/19 09:00 11/30/19 08:59 Theragran M PO 1 tab DAILY EVERARDO Administration Levofloxacin 500 mg 11/30/19 06:00 11/30/19 07:08 Levaquin PO 500 mg 0600 EVERARDO Administration Miscellaneous Medication 0 gm 11/29/19 18:13 11/29/19 20:53 Biotene Oralbalance Gel TOP 1 applic TIDPRN PRN Administration Dry Mouth Morphine Sulfate 45 mg 11/28/19 06:00 11/30/19 07:08 Ms Contin PO 45 mg Q8HR EVERARDO Administration Polyethylene Glycol 17 gm 11/27/19 00:25 11/29/19 09:27 Miralax PO 17 gm DAILY PRN Administration Constipation Sodium Chloride 10 ml 11/27/19 09:00 11/30/19 08:59 Flush - Normal Saline IVF 10 ml Q12HR EVERARDO Administration Tamsulosin HCl 0.4 mg 11/27/19 09:00 11/30/19 08:59 Flomax PO 0.4 mg DAILY EVERARDO Administration - Exam Eye: PERRL Heart: RRR, no murmur, no gallops, no rubs, normal peripheral pulses Respiratory: CTAB (+ coarse breath sounds), no wheezes, no rales Gastrointestinal: soft, non-tender, non-distended, normal bowel sounds, no palpable masses, no hepatomegaly Extremities: 1+ LE edema (edema in boh lower extremities) Hosp A/P (1) Neutropenic fever Code(s): D70.9 - NEUTROPENIA, UNSPECIFIED; R50.81 - FEVER PRESENTING WITH CONDITIONS CLASSIFIED ELSEWHERE Status: Acute (2) Hyponatremia Code(s): E87.1 - HYPO-OSMOLALITY AND HYPONATREMIA Status: Acute (3) HTN (hypertension) Code(s): I10 - ESSENTIAL (PRIMARY) HYPERTENSION Status: Chronic Qualifiers: Hypertension type: essential hypertension Qualified Code(s): I10 - Essential (primary) hypertension - Plan * Neutropenic fever- resolved- cultures are negative, will continue Levaquin a few more days * Shortness of breath- persists- unclear etiology * Hyponatremia- consistent with SIADH- will continue fluid restriction- re- check in the AM * Continue PT/OT for deconditioning * Begin discharge planning
[2019-11-30] MEDS ORDERED: Milk Of Magnesia 30 ML UDCUP PO PRN (11:05)
[2019-11-30] MEDS: Polyethylene Glycol 3350 17 GM Packet PO PRN (18:12)
[2019-11-30] MEDS: Atorvastatin Calcium 10 MG TAB PO SCH (20:53)
[2019-11-30] MEDS: Bisacodyl 10 MG SUPP PR PRN (21:02)
[2019-12-01] MEDS: Morphine ER 15 MG TAB PO SCH ×3 (05:55→21:19)
[2019-12-01 08:28] LABS: Anion Gap 10 mmol/L (10-20); BUN (Urea Nitrogen) 10 mg/dL (8.4-25.7); Calc. Creatinine Clearance 169 mL/min (70-130); Calcium 7.5 mg/dL (7.8-10.44); Carbon Dioxide 27 mmol/L (23-31); Chloride 93 mmol/L (98-107); Estimated GFR-MDRD Greater than 90; Glucose 118 mg/dL (80-115); Potassium 4.3 mmol/L (3.5-5.1); Sodium 126 mmol/L (136-145)
[2019-12-01] MEDS: Fish Oil 1,000 MG CAP PO SCH (09:08)
[2019-12-01] MEDS: Tamsulosin HCl 0.4 MG CAP PO SCH (09:08)
[2019-12-01] MEDS: Dutasteride 0.5 MG CAP PO SCH (09:08)
[2019-12-01] MEDS: Multivitamin W/ Minerals 1 TAB PO SCH (09:08)
[2019-12-01] MEDS: Enoxaparin Sodium 40 MG/0.4 ML SYRINGE SC SCH (09:08)
--- NOTE | 2019-12-01 10:11 | PQF ---
SABINO BAER TONI MD [id number] CLINICAL DOCUMENTATION IMPROVEMENT CLARIFICATION FORM: ICD-10 Updated PLEASE DO AN ADDENDUM TO THE PROGRESS NOTE WITH ANY DOCUMENTATION UPDATES OR ADDITIONS AND CARRY THROUGH TO DC SUMMARY. THANK YOU. DATE: 12/01/2019, 12/02/2019 ATTN: DR. Kavon MENDOZA Please exercise your independent, professional judgment in responding to the clarification form. Clinical indicators are provided on the bottom of this form for your review. Please check appropriate box(s) to clarify if the following diagnosis has been ruled in or ruled out: SEPSIS [ ] Ruled in diagnosis [ ] Continue to treat [ ] Resolved [ X] Ruled out diagnosis [ ] Cannot rule out diagnosis [ ] Other diagnosis [ ] Unable to determine In addition, please specify: Present on Admission (POA): [ ] Yes [ ] No [ ] Unable to determine For continuity of documentation, please document condition throughout progress notes and discharge summary. Thank You. CLINICAL INDICATORS - SIGNS / SYMPTOMS / LABS / RESULTS AND LOCATION IN MR 11/26 PT PRESENTED WITH INCREASING CONFUSION AND SOB, PULSE 119, RESP 25, 97-100 % 2L/NC, ED PHYSICIAN FINAL DX: SEPSIS, AMS, HYPONATREMIA 11/26 WBC 1.9 > 2.3 > 1.9 > 4.0 > 7.2 11/26 BANDS: 18 > 13 11/27 H&P (FAJARDO) ASSESSMENT: 3). POSSIBLE SEPSIS SECONDARY TO FEBRILE NEUTROPENIA. THE PATIENT HAS STAGE IV LUNG ADENOCARCINOMA AND RECENT CHEMOTHERAPY 6 DAYS AGO. NO FURTHER MENTION OF SEPSIS RISK: DX STAGE IV LUNG ADENOCARCINOMA AND RECENT CHEMOTHERAPY, NEUTROPENIC FEVER (H&P /FAJARDO) 11/27 TREATMENTS: IV FLUID BOLUS (ED/11/26) BLOOD CULTURE 11/26 IV VANCOMYCIN (ED/11/26) IV ZOSYN (ED 11/26) THANK YOU! NITA (This form is maintained as a part of the permanent medical record) 2014 [employer], [employer]. All Rights Reserved [email or web address] [phone] MTDD
--- NOTE | 2019-12-01 13:31 | PDOC.MOPN ---
Interval History: Pt still very weak. He is not eating very much. He is participating with PT but they didn't come yesterday and so he did not get out of bed. I discussed prognosis and potential future treatments with the patient and his . - Vital Signs Vital Signs: Vital Signs (12 hours) Temp Pulse Resp BP Pulse Ox 12/01/19 07:59 98.1 F 83 18 120/64 96 12/01/19 07:58 96 Weight Admit Weight 174 lb 3 oz Weight 174 lb 3 oz - Physical Exam General: Alert, Oriented x3, Cooperative HEENT: Atraumatic Lungs: Normal air movement Neurological: Cranial nerves 3-12 NL Psych/Mental Status: Mental status NL - Labs Result Diagrams: 11/30/19 04:30 12/01/19 07:55 Lab results: Laboratory Results - last 24 hr 12/01/19 07:55: Sodium 126 L, Potassium 4.3, Chloride 93 L, Carbon Dioxide 27, Anion Gap 10, BUN 10, Creatinine 0.48 L, Estimated GFR (MDRD) Greater than 90, Glucose 118 H, Calcium 7.5 L A/P - Problem (1) 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 I will f/u with him in clinic 1-2 weeks after discharge and if better then will consider restarting treatment at that time. Next dose is not due until 12/11/2019
--- NOTE | 2019-12-01 13:54 | PDOC.HOSPP ---
- Subjective Encounter Date: 12/01/19 Encounter Time: 13:51 Subjective: was seen today in follow-up of Hyponatremia and Neutropenic fever. He continues to feel weak. - Objective Vital Signs & Weight: Vital Signs (12 hours) Temp Pulse Resp BP Pulse Ox 12/01/19 07:59 98.1 F 83 18 120/64 96 12/01/19 07:58 96 Weight Admit Weight 174 lb 3 oz Weight 174 lb 3 oz I&O: 11/30/19 12/01/19 12/02/19 06:59 06:59 06:59 Intake Total 1200 1100 Output Total 800 1350 Balance 400 -250 Result Diagrams: 11/30/19 04:30 12/01/19 07:55 Hospitalist ROS - Medication Medications: Active Medications Generic Name Dose Route Start Last Admin Trade Name Freq PRN Reason Stop Dose Admin Atorvastatin Calcium 10 mg 11/27/19 21:00 11/30/19 20:53 Lipitor PO 10 mg HS EVERARDO Administration Bisacodyl 10 mg 11/30/19 11:06 11/30/19 21:02 Dulcolax ID 10 mg DAILYPRN PRN Administration Constipation Cosyntropin 250 mcg 11/27/19 20:30 11/28/19 08:46 Cortrosyn SLOW IVP 250 mcg WILLCALL EVERARDO Administration Dutasteride 0.5 mg 11/27/19 09:00 12/01/19 09:08 Avodart PO 0.5 mg DAILY EVERARDO Administration Enoxaparin Sodium 40 mg 11/27/19 09:00 12/01/19 09:08 Lovenox SC 40 mg 0900 EVERARDO Administration Fish Oil 1,000 mg 11/27/19 09:00 12/01/19 09:08 Fish Oil PO 1,000 mg DAILY EVERARDO Administration Iron/Minerals/Multivitamins 1 tab 11/27/19 09:00 12/01/19 09:08 Theragran M PO 1 tab DAILY EVERARDO Administration Levofloxacin 500 mg 11/30/19 06:00 12/01/19 05:55 Levaquin PO 500 mg 0600 EVERARDO Administration Magnesium Hydroxide 30 ml 11/30/19 11:05 11/30/19 12:03 Milk Of Magnesium PO 30 ml DAILYPRN PRN Administration Constipation Miscellaneous Medication 0 gm 11/29/19 18:13 12/01/19 09:09 Biotene Oralbalance Gel TOP 1 applic TIDPRN PRN Administration Dry Mouth Morphine Sulfate 45 mg 11/28/19 06:00 12/01/19 13:33 Ms Contin PO 45 mg Q8HR EVERARDO Administration Polyethylene Glycol 17 gm 11/27/19 00:25 11/30/19 18:12 Miralax PO 17 gm DAILY PRN Administration Constipation Sodium Chloride 10 ml 11/27/19 09:00 12/01/19 09:08 Flush - Normal Saline IVF 10 ml Q12HR EVERARDO Administration Tamsulosin HCl 0.4 mg 11/27/19 09:00 12/01/19 09:08 Flomax PO 0.4 mg DAILY EVERARDO Administration - Exam Eye: PERRL Heart: RRR, no murmur, no gallops, no rubs, normal peripheral pulses Respiratory: CTAB, no wheezes, no rales, no ronchi, normal chest expansion, no tachypnea Gastrointestinal: soft, non-tender, non-distended, normal bowel sounds, no palpable masses, no hepatomegaly Extremities: no cyanosis, no clubbing, no edema Hosp A/P (1) Neutropenic fever Code(s): D70.9 - NEUTROPENIA, UNSPECIFIED; R50.81 - FEVER PRESENTING WITH CONDITIONS CLASSIFIED ELSEWHERE Status: Acute (2) Hyponatremia Code(s): E87.1 - HYPO-OSMOLALITY AND HYPONATREMIA Status: Acute (3) HTN (hypertension) Code(s): I10 - ESSENTIAL (PRIMARY) HYPERTENSION Status: Chronic Qualifiers: Hypertension type: essential hypertension Qualified Code(s): I10 - Essential (primary) hypertension - Plan * Hyponatremia- His sodium has not improved with fluid restriction- will consult Nephrology for further evaluation * Lung cancer- advanced- Oncology input appreciated * Continue PT/OT for deconditioning and generalized weakness * Begin discharge planning- he may require Rehab so will begin the screening process
[2019-12-01] MEDS ORDERED: Tolvaptan 15 MG TAB PO SCH (15:30)
[2019-12-01] MEDS: Atorvastatin Calcium 10 MG TAB PO SCH (20:07)
[2019-12-01] MEDS: Simethicone Chewable 80 MG TAB PO PRN (20:08)
[2019-12-02] MEDS: Morphine ER 15 MG TAB PO SCH ×3 (05:24→21:23)
[2019-12-02 06:28] LABS: Albumin 1.9 g/dL (3.4-4.8); Anion Gap 11 mmol/L (10-20); BUN (Urea Nitrogen) 10 mg/dL (8.4-25.7); BUN/Creatinine Ratio 22.73; Calc. Creatinine Clearance 185 mL/min (70-130); Calcium 7.5 mg/dL (7.8-10.44); Carbon Dioxide 27 mmol/L (23-31); Chloride 91 mmol/L (98-107); Estimated GFR-MDRD Greater than 90; Glucose 123 mg/dL (80-115); Phosphorus 3.1 mg/dL (2.3-4.7); Potassium 4.5 mmol/L (3.5-5.1); Sodium 124 mmol/L (136-145)
--- NOTE | 2019-12-02 07:54 | CON ---
DATE OF CONSULTATION: 12/01/2019 SERVICE: Nephrology. REASON FOR CONSULTATION: Hyponatremia. REQUESTING PHYSICIAN: Dr. Herminio Ruiz. HISTORY OF PRESENT ILLNESS: A 64-year-old male with stage IV lung cancer with metastasis to bone, liver, and adrenal, who was admitted due to worsening generalized weakness as well as worsening shortness of breath and leg swelling and poor functional status. The patient was found to have hyponatremia, metabolic acidosis, as well as neutropenia on presentation. He was started on antibiotics. Urine osmolality and plasma osmolality were suggestive of syndrome of inappropriate ADH secretion, hence the patient was started on fluid restriction. Sodium had improved from 120 on presentation to a peak of 127 before plateauing around 125-126. Nephrology consult was obtained to help with the management of hyponatremia. The patient's spouse reported some intermittent confusion. The patient also reported back pain, but denied nausea or vomiting. Oral intake and appetite have remained poor. There is no history of nausea, vomiting, or diarrhea. The patient also denied fever, chest pain, or focal weakness. He admitted to bilateral leg swelling. He also admitted to urinary difficulty with straining. PAST MEDICAL HISTORY: 1. Stage IV lung adenocarcinoma. 2. Hypertension. 3. Chronic pain. 4. Dyslipidemia. 5. Physical deconditioning. PAST SURGICAL HISTORY: 1. Tonsillectomy. 2. Shoulder meniscal surgery. 3. Port-A-Cath placement. FAMILY HISTORY: Reviewed, but noncontributory. SOCIAL HISTORY: The patient is and lives with his spouse. Denied smoking, but admitted to prior alcohol use which he also has stopped currently since diagnosis of cancer. ALLERGIES: THE FOLLOWING MEDICATION ARE LISTED IN ALLERGY HISTORY: PENICILLIN. HOME MEDICATIONS: 1. Lipitor 10 mg p.o. daily at bedtime. 2. Carvedilol 3.125 p.o. b.i.d. 3. Cholecalciferol 2000 units p.o. daily. 4. Decadron 4 mg as directed. 5. Avodart 0.5 mg p.o. daily. 6. Hydrocodone 10/325 one tablet q.4 p.r.n. for pain. 7. MS Contin 45 mg p.o. b.i.d. 8. MiraLAX 17 g p.o. daily p.r.n. 9. Flomax 0.4 mg p.o. daily. 10. Flexeril 10 mg t.i.d. p.r.n. CURRENT HOSPITAL MEDICATIONS: 1. Morphine ER (MS Contin) 45 mg q.8 hours. 2. Lipitor 10 mg p.o. daily at bedtime. 3. Cosyntropin immigration officer. 4. Avodart 0.5 mg p.o. daily. 5. Lovenox 40 mg subcutaneously daily. 6. Fish oil 1 g p.o. daily. 7. Levofloxacin 500 mg p.o. daily. 8. Flomax 0.4 mg p.o. daily. 9. Hydrocodone/acetaminophen 10/325 mg q.6 hours p.r.n. 10. MiraLAX 17 g p.o. daily p.r.n. 11. Multivitamin with minerals 1 tablet p.o. daily. REVIEW OF SYSTEMS: 12-point review of system performed other than pertinent positives and negatives included in the history of present illness. PHYSICAL EXAMINATION: VITAL SIGNS: Temperature 98.1, pulse 83, respiratory rate 18, SpO2 of 96% on room air, blood pressure is 120/64. GENERAL: Chronically ill looking male, in no obvious distress. The patient is fatigued, but anicteric. HEENT: Normocephalic, atraumatic. Oral mucosa is moist. NECK: Supple with no JVD. CARDIOVASCULAR: Irregular rhythm and rate with normal heart sounds 1 and 2. RESPIRATORY: Fair air entry bilaterally with some transmitted breath sounds. No rhonchi were appreciated however. GI: Full, soft, nondistended with normal bowel sounds. EXTREMITIES: Moderate bilateral leg edema noted. PLASTICS PLATER: Conscious, alert, oriented x3 with appropriate mental status. The patient moves all extremities but weakly. DIAGNOSTIC DATA: CBC on 11/30, showed WBC count of 7.2, hemoglobin of 8.8, MCV of 86.2, and platelets of 351. BMP performed today 12/01, showed sodium 126, potassium 4.3, chloride 93, CO2 of 27, BUN 10, creatinine 0.48, glucose 118, calcium 7.5. Review of medical records showed that on presentation on 11/26, sodium was 120, which seemed to be plateaued at 126 currently. Creatinine has been stable since admission from 0.48 to 0.61 since admission with current level of 0.48. Note that on 11/29, serum osmolality was 266 while urine osmolality same-day was 441. ASSESSMENT: 1. Hyponatremia: This is most likely due to syndrome of inappropriate ADH secretion related to lung cancer. Despite fluid restriction at 1 L, serum sodium has not gone beyond 126. 2. Bilateral leg edema: Most likely related to lung cancer with metastasis as well as hypoalbuminemia. 3. 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 4. Metastatic lung cancer. 5. Hypoalbuminemia. PLAN: 1. Given that the patient has failed fluid restriction with maximum serum sodium being 126. We will start the patient on tolvaptan. We will also discontinue fluid restriction. 2. We will monitor BMP and electrolytes and correct as indicated. 3. [place] oral intake advised. The patient also was advised to increase solute intake. Further treatment to follow depending on hospital course. Job ID: [id number]
[2019-12-02] MEDS: Fish Oil 1,000 MG CAP PO SCH (08:46)
[2019-12-02] MEDS: Dutasteride 0.5 MG CAP PO SCH (08:47)
[2019-12-02] MEDS: Enoxaparin Sodium 40 MG/0.4 ML SYRINGE SC SCH (08:47)
[2019-12-02] MEDS: Multivitamin W/ Minerals 1 TAB PO SCH (08:47)
[2019-12-02] MEDS: Tamsulosin HCl 0.4 MG CAP PO SCH (08:47)
[2019-12-02] MEDS ORDERED: Tolvaptan 15 MG TAB PO SCH (10:15)
--- NOTE | 2019-12-02 14:05 | PDOC.HOSPP ---
- Subjective Encounter Date: 12/02/19 Encounter Time: 14:02 Subjective: was seen today in follow-up of hyponatremiia, and lung cancer. He does not have any new complaints other than excessive weakness and fatigue. - Objective Vital Signs & Weight: Vital Signs (12 hours) Temp Pulse Resp BP Pulse Ox 12/02/19 08:00 97.9 F 94 13 106/70 96 Weight Admit Weight 174 lb 3 oz Weight 174 lb 3 oz I&O: 12/01/19 12/02/19 12/03/19 06:59 06:59 06:59 Intake Total 1100 1240 Output Total 1350 1200 Balance -250 40 Result Diagrams: 11/30/19 04:30 12/02/19 05:50 Hospitalist ROS - Medication Medications: Active Medications Generic Name Dose Route Start Last Admin Trade Name Freq PRN Reason Stop Dose Admin Atorvastatin Calcium 10 mg 11/27/19 21:00 12/01/19 20:07 Lipitor PO 10 mg HS EVERARDO Administration Bisacodyl 10 mg 11/30/19 11:06 11/30/19 21:02 Dulcolax [place] 10 mg DAILYPRN PRN Administration Constipation Cosyntropin 250 mcg 11/27/19 20:30 11/28/19 08:46 Cortrosyn SLOW IVP 250 mcg WILLCALL EVERARDO Administration Dutasteride 0.5 mg 11/27/19 09:00 12/02/19 08:47 Avodart PO 0.5 mg DAILY EVERARDO Administration Enoxaparin Sodium 40 mg 11/27/19 09:00 12/02/19 08:47 Lovenox SC 40 mg 0900 EVERARDO Administration Fish Oil 1,000 mg 11/27/19 09:00 12/02/19 08:46 Fish Oil PO 1,000 mg DAILY EVERARDO Administration Iron/Minerals/Multivitamins 1 tab 11/27/19 09:00 12/02/19 08:47 Theragran M PO 1 tab DAILY EVERARDO Administration Levofloxacin 500 mg 11/30/19 06:00 12/02/19 05:24 Levaquin PO 500 mg 0600 EVERARDO Administration Magnesium Hydroxide 30 ml 11/30/19 11:05 11/30/19 12:03 Milk Of Magnesium PO 30 ml DAILYPRN PRN Administration Constipation Miscellaneous Medication 0 gm 11/29/19 18:13 12/01/19 21:22 Biotene Oralbalance Gel TOP 1 applic TIDPRN PRN Administration Dry Mouth Morphine Sulfate 45 mg 11/28/19 06:00 12/02/19 13:54 Ms Contin PO 45 mg Q8HR EVERARDO Administration Polyethylene Glycol 17 gm 11/27/19 00:25 11/30/19 18:12 Miralax PO 17 gm DAILY PRN Administration Constipation Simethicone 80 mg 12/01/19 19:59 12/01/19 20:08 Mylicon Chewable PO 80 mg ACHS PRN Administration Gas Pain Sodium Chloride 10 ml 11/27/19 09:00 12/02/19 08:48 Flush - Normal Saline IVF 10 ml Q12HR EVERARDO Administration Tamsulosin HCl 0.4 mg 11/27/19 09:00 12/02/19 08:47 Flomax PO 0.4 mg DAILY EVERARDO Administration - Exam Eye: PERRL Heart: RRR, no murmur, no gallops, no rubs, normal peripheral pulses Respiratory: CTAB, no wheezes, no rales, no ronchi, normal chest expansion, no tachypnea, normal percussion Gastrointestinal: soft, non-tender, normal bowel sounds Extremities: 1+ LE edema (+ pitting edema in both flanks) Hosp A/P (1) Neutropenic fever Code(s): D70.9 - NEUTROPENIA, UNSPECIFIED; R50.81 - FEVER PRESENTING WITH CONDITIONS CLASSIFIED ELSEWHERE Status: Acute (2) Hyponatremia Code(s): E87.1 - HYPO-OSMOLALITY AND HYPONATREMIA Status: Acute (3) HTN (hypertension) Code(s): I10 - ESSENTIAL (PRIMARY) HYPERTENSION Status: Chronic Qualifiers: Hypertension type: essential hypertension Qualified Code(s): I10 - Essential (primary) hypertension - Plan * Hyponatremia- discussed with Dr. Houston- he will be given a higher dose of Tolvaptan today * Fluid restriction has been liberalized * Continue to encourage oral intake * Lung cancer- advanced- Oncology input appreciated * Continue PT/OT for deconditioning and generalized weakness * Screen for inpatient Rehab
--- NOTE | 2019-12-02 14:30 | PDOC.MOPN ---
Interval History: feels ok today - Vital Signs Vital Signs: Vital Signs (12 hours) Temp Pulse Resp BP Pulse Ox 12/02/19 08:00 97.9 F 94 13 106/70 96 Weight Admit Weight 174 lb 3 oz Weight 174 lb 3 oz - Physical Exam General: Alert, Oriented x3, No acute distress HEENT: Atraumatic, PERRLA, EOMI, Mucous membr. moist/pink Lungs: Clear to auscultation, Normal air movement Cardiovascular: Regular rate, Normal S1, Normal S2, No murmurs, Gallops, Rubs Abdomen: Normal bowel sounds, Soft, No tenderness, No hepatospenomegaly, No masses Extremities: No clubbing, No cyanosis, No edema, Normal pulses, No tenderness/ swelling Skin: No rashes, No breakdown, No significant lesion Neurological: Normal speech Psych/Mental Status: Mental status NL, Mood NL - Labs Result Diagrams: 11/30/19 04:30 12/02/19 05:50 Lab results: Laboratory Results - last 24 hr 12/02/19 05:50: Sodium 124 L, Potassium 4.5, Chloride 91 L, Carbon Dioxide 27, Anion Gap 11, BUN 10, Creatinine 0.44 L, Estimated GFR (MDRD) Greater than 90, BUN/Creatinine Ratio 22.73, Glucose 123 H, Calcium 7.5 L, Phosphorus 3.1, Albumin 1.9 L Status: lab reviewed by me A/P - Problem (1) Lung cancer Current Visit: Yes Code(s): C34.90 - MALIGNANT NEOPLASM OF UNSP PART OF UNSP BRONCHUS OR LUNG Status: Acute (2) Hyponatremia Current Visit: No Code(s): E87.1 - HYPO-OSMOLALITY AND HYPONATREMIA Status: Acute - Plan Plan: Cont antibiotics to complete 1 week of treatment cont PT, OOB to chair encourage increased PO intake I d/w pt and family that he is not a candidate for chemotherapy in his present state and he needs to get a lot stronger in order to tolerate more therapy. I will f/u with him in clinic 1-2 weeks after discharge and if better then will consider restarting treatment at that time. Next dose is not due until 12/11/2019 to rehab once sodium improved
--- NOTE | 2019-12-02 19:28 | PRG ---
DATE OF SERVICE: 12/02/2019 SUBJECTIVE: A 64-year-old male with metastatic lung cancer, seen in followup for hyponatremia. No new problem. The patient complains of easy fullness, hence, poor oral intake. Denied nausea, vomiting, fever, or chest pain. Continue to have back pain. OBJECTIVE: VITAL SIGNS: Temperature 97.9, pulse 94, respiratory rate 13, SpO2 96% on room air, and blood pressure is 106/70. GENERAL: Chronically ill-looking male, in no obvious distress. Afebrile, acyanotic. HEENT: Normocephalic and atraumatic. Oral mucosa is moist. CARDIOVASCULAR: Irregular rhythm and rate with normal heart sounds 1 and 2. RESPIRATORY: Fair air entry bilaterally with some transmitted breath sounds, but no rhonchi or use of accessory muscles. GI: Full, soft, nontender, nondistended with normal bowel sounds. EXTREMITIES: [id number] bilateral leg edema as well as bilateral flank abdominal wall edema noted. REFERRAL SPECIALIST: Conscious and alert and oriented x3 with appropriate mental status. DIAGNOSTIC DATA: Renal function panel showed sodium 124, potassium 4.5, chloride 91, CO2 of 27, BUN 10, creatinine 0.44, glucose 123, calcium 7.5, phosphorus 3.1, albumin 1.9. ASSESSMENT: 1. 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 Some contribution from poor solute intake cannot be ruled out. The patient has not improved significantly with fluid restriction; hence, fluid restriction was discontinued, and the patient started on Samsca, however, at a very low dose of 15. Sodium actually dipped from 126 yesterday to 124 today. There is no change in mental status. We will increase dose of Samsca to 30 mg p.o. daily. We will also avoid fluid restriction at this time. The patient advised to increase solute intake. We will recheck renal function as well as electrolytes tomorrow. 2. Hypoalbuminemia. This is due to protein calorie malnutrition. 3. Generalized edema/anasarca related to hypoalbuminemia as well as liver metastasis. Job ID: [id number]
[2019-12-02] MEDS: Atorvastatin Calcium 10 MG TAB PO SCH (20:44)
[2019-12-03] MEDS: Morphine ER 15 MG TAB PO SCH ×3 (06:21→21:18)
[2019-12-03 07:45] LABS: Hemoglobin 9.7 g/dL (14.0-18.0); Mean Corpuscular HGB CONC 30.8 g/dL (32.0-36.0); Mean Corpuscular Hemoglobin 26.5 pg (27.0-31.0); Mean Platelet Volume 7.6 fL (7.4-10.4); Platelet Count 315 thou/uL (130-400); RBC Distribution Width 18.8 % (11.5-14.5); Red Blood Cell (RBC) Count 3.66 mill/uL (4.70-6.10); White Blood Cell (WBC) Count 18.5 thou/uL (4.8-10.8)
[2019-12-03] MEDS: Dutasteride 0.5 MG CAP PO SCH (07:45)
[2019-12-03] MEDS: Tamsulosin HCl 0.4 MG CAP PO SCH (07:46)
[2019-12-03] MEDS: Enoxaparin Sodium 40 MG/0.4 ML SYRINGE SC SCH (07:46)
[2019-12-03] MEDS: Fish Oil 1,000 MG CAP PO SCH (07:46)
[2019-12-03] MEDS: Multivitamin W/ Minerals 1 TAB PO SCH (07:46)
[2019-12-03 08:05] LABS: Anion Gap 11 mmol/L (10-20); BUN (Urea Nitrogen) 9 mg/dL (8.4-25.7); BUN/Creatinine Ratio 18.37; Calc. Creatinine Clearance 166 mL/min (70-130); Calcium 7.8 mg/dL (7.8-10.44); Carbon Dioxide 30 mmol/L (23-31); Chloride 92 mmol/L (98-107); Estimated GFR-MDRD Greater than 90; Glucose 108 mg/dL (80-115); Phosphorus 3.4 mg/dL (2.3-4.7); Sodium 128 mmol/L (136-145)
[2019-12-03] MEDS ORDERED: Tolvaptan 15 MG TAB PO SCH (09:15)
[2019-12-03 09:20] LABS: Band 3 % (5-11); Hypochromia SLIGHT = 6-15 cells (100X) (0-5/hpf); Lymphocytes 6 % (21-51); MDiff Complete? YES; Monocytes 11 % (0-10); Neutrophil 80 % (42-75); Platelet Morphology Comment Appears Adequate; Polychromasia SLIGHT = 2-3 cells (100X) (0-2/hpf)
--- NOTE | 2019-12-03 09:51 | PDOC.MOPN ---
Interval History: Hurting today. Pain meds given. - Vital Signs Vital Signs: Vital Signs (12 hours) Temp Pulse Resp BP Pulse Ox 12/03/19 07:43 98.0 F 94 16 111/75 95 Weight Admit Weight 174 lb 3 oz Weight 174 lb 3 oz - Physical Exam General: Alert, Oriented x3, No acute distress HEENT: Atraumatic, PERRLA, EOMI, Mucous membr. moist/pink Lungs: Clear to auscultation, Normal air movement Cardiovascular: Regular rate, Normal S1, Normal S2, No murmurs, Gallops, Rubs Abdomen: Normal bowel sounds, Soft, No tenderness, No hepatospenomegaly, No masses Extremities: No clubbing, No cyanosis, No edema, Normal pulses, No tenderness/ swelling Skin: No rashes, No breakdown, No significant lesion Neurological: Normal gait, Normal speech, Strength at 5/5 X4 ext, Normal tone, Sensation intact, Cranial nerves 3-12 NL, Reflexes 2+ Psych/Mental Status: Mental status NL, Mood NL - Labs Result Diagrams: 12/03/19 07:35 12/03/19 07:35 Lab results: Laboratory Results - last 24 hr 12/03/19 07:35: WBC 18.5 H, RBC 3.66 L, Hgb 9.7 L, Hct 31.5 L, MCV 86.0, MCH 26.5 L, MCHC 30.8 L, RDW 18.8 H, Plt Count 315, MPV 7.6, Neutrophils % (Manual) 80 H, Band Neuts % (Manual) 3 L, Lymphocytes % (Manual) 6 L, Monocytes % (Manual ) 11 H, Neutrophils # Not Reportable, Lymphocytes # Not Reportable, Hypochromia SLIGHT = 6-15 cells, Plt Morphology Comment Appears Adequate, Polychromasia SLIGHT = 2-3 cells 12/03/19 07:35: Sodium 128 L, Potassium 5.0, Chloride 92 L, Carbon Dioxide 30, Anion Gap 11, BUN 9, Creatinine 0.49 L, Estimated GFR (MDRD) Greater than 90, BUN/Creatinine Ratio 18.37, Glucose 108, Calcium 7.8, Phosphorus 3.4, Albumin 2.0 L Status: lab reviewed by me A/P - Problem (1) Lung cancer Current Visit: Yes Code(s): C34.90 - MALIGNANT NEOPLASM OF UNSP PART OF UNSP BRONCHUS OR LUNG Status: Acute (2) Hyponatremia Current Visit: No Code(s): E87.1 - HYPO-OSMOLALITY AND HYPONATREMIA Status: Acute - Plan Plan: Cont antibiotics to complete 1 week of treatment cont PT, OOB to chair encourage increased PO intake Dr. Craft d/w pt and family that he is not a candidate for chemotherapy in his present state and he needs to get a lot stronger in order to tolerate more therapy. I will f/u with him in clinic 1-2 weeks after discharge and if better then will consider restarting treatment at that time. Next dose is not due until 12/11/2019 to rehab once sodium improved
--- NOTE | 2019-12-03 14:53 | PDOC.HOSPP ---
- Subjective Encounter Date: 12/03/19 Encounter Time: 14:50 Subjective: was seen today in follow-up of neutropenic fever, and hyponatremia with generalized weakness. He says he had a bad night. He has been extremely weak, and his shortness of breath has gotten worse. - Objective Vital Signs & Weight: Vital Signs (12 hours) Temp Pulse Pulse Pulse Resp BP BP 12/03/19 13:00 107 H 107 H 123/80 117/75 12/03/19 07:43 98.0 F 94 16 BP Pulse Ox Pulse Ox 12/03/19 13:00 92 L 12/03/19 07:43 111/75 95 Weight Admit Weight 174 lb 3 oz Weight 174 lb 3 oz I&O: 12/02/19 12/03/19 12/04/19 06:59 06:59 06:59 Intake Total 1240 1440 Output Total 1200 1800 Balance 40 -360 Result Diagrams: 12/03/19 07:35 12/03/19 07:35 Hospitalist ROS - Medication Medications: Active Medications Generic Name Dose Route Start Last Admin Trade Name Freq PRN Reason Stop Dose Admin Hydrocodone Bitart/Acetaminophen 1 tab 11/27/19 00:25 12/03/19 11:12 [place] 10/325 PO 1 tab Q6H PRN Administration Severe Pain (7-10) Atorvastatin Calcium 10 mg 11/27/19 21:00 12/02/19 20:44 Lipitor PO 10 mg HS EVERARDO Administration Bisacodyl 10 mg 11/30/19 11:06 11/30/19 21:02 Dulcolax AR 10 mg DAILYPRN PRN Administration Constipation Cosyntropin 250 mcg 11/27/19 20:30 11/28/19 08:46 Cortrosyn SLOW IVP 250 mcg WILLCALL EVERARDO Administration Cyclobenzaprine HCl 10 mg 11/26/19 23:33 12/02/19 20:45 Flexeril PO 10 mg TIDPRN PRN Administration Muscle Spasm Dutasteride 0.5 mg 11/27/19 09:00 12/03/19 07:45 Avodart PO 0.5 mg DAILY EVERARDO Administration Enoxaparin Sodium 40 mg 11/27/19 09:00 12/03/19 07:46 Lovenox SC 40 mg 0900 EVERARDO Administration Fish Oil 1,000 mg 11/27/19 09:00 12/03/19 07:46 Fish Oil PO 1,000 mg DAILY EVERARDO Administration Iron/Minerals/Multivitamins 1 tab 11/27/19 09:00 12/03/19 07:46 Theragran M PO 1 tab DAILY EVERADRO Administration Levofloxacin 500 mg 11/30/19 06:00 12/03/19 06:20 Levaquin PO 500 mg 0600 EVERARDO Administration Magnesium Hydroxide 30 ml 11/30/19 11:05 11/30/19 12:03 Milk Of Magnesium PO 30 ml DAILYPRN PRN Administration Constipation Miscellaneous Medication 0 gm 11/29/19 18:13 12/01/19 21:22 Biotene Oralbalance Gel TOP 1 applic TIDPRN PRN Administration Dry Mouth Morphine Sulfate 45 mg 11/28/19 06:00 12/03/19 13:44 Ms Contin PO 45 mg Q8HR EVERARDO Administration Polyethylene Glycol 17 gm 11/27/19 00:25 11/30/19 18:12 Miralax PO 17 gm DAILY PRN Administration Constipation Simethicone 80 mg 12/01/19 19:59 12/01/19 20:08 Mylicon Chewable PO 80 mg ACHS PRN Administration Gas Pain Sodium Chloride 10 ml 11/27/19 09:00 12/03/19 07:46 Flush - Normal Saline IVF 10 ml Q12HR EVERARDO Administration Tamsulosin HCl 0.4 mg 11/27/19 09:00 12/03/19 07:46 Flomax PO 0.4 mg DAILY EVERARDO Administration - Exam Eye: PERRL Heart: RRR, no murmur, no gallops, no rubs, normal peripheral pulses Respiratory: CTAB, no wheezes, no rales, no ronchi, normal chest expansion, no tachypnea, normal percussion Gastrointestinal: normal bowel sounds (+ diffuse tenderness), distended Extremities: 1+ LE edema Hosp A/P (1) Hyponatremia Code(s): E87.1 - HYPO-OSMOLALITY AND HYPONATREMIA Status: Acute (2) HTN (hypertension) Code(s): I10 - ESSENTIAL (PRIMARY) HYPERTENSION Status: Chronic Qualifiers: Hypertension type: essential hypertension Qualified Code(s): I10 - Essential (primary) hypertension - Plan * 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
--- NOTE | 2019-12-03 17:20 | PRG ---
DATE OF SERVICE: 12/03/2019 SERVICE: Nephrology. SUBJECTIVE: A 64-year-old male, admitted due to generalized weakness and abnormal labs. Nephrology is following the patient for hyponatremia. The patient has metastatic lung cancer. Continued to have back pain. Denied nausea or vomiting. Oral intake is improving. OBJECTIVE: VITAL SIGNS: Temperature 98.0, pulse 94, respiratory rate 16, SpO2 of 95 on 2 L nasal cannula, blood pressure is 111/75. GENERAL: Chronically ill-looking male, in no distress. Afebrile. HEENT: Normocephalic and atraumatic. Oral mucosa is moist. CARDIOVASCULAR: Regular rhythm and rate with normal heart sounds 1 and 2. RESPIRATORY: Fair air entry bilaterally with few bibasilar crackles and some transmitted breath sounds, but no rhonchi. Work of breathing is not increased. GI: Full, soft, nontender, nondistended with normal bowel sounds. EXTREMITIES: Mild bilateral leg edema noted. BAKER OPERATOR AUTOMATIC: Conscious, alert, oriented x3 with appropriate mental status. Cranial nerves 2 through 12 are grossly intact. DIAGNOSTIC DATA: CBC showed WBC count of 18.5, hemoglobin of 9.7, platelets of 315. Renal function panel showed sodium of 128, potassium 5.0, chloride 92, CO2 of 30, BUN 9, creatinine 0.49, glucose 108, calcium 7.8, phosphorus 3.4, albumin 2.0. ASSESSMENT: Hyponatremia: Brock to be due to syndrome of inappropriate ADH related to metastatic lung cancer. Some contribution from poor solute intake cannot be ruled out. Sodium level is up today from 124 to 128 with increase in Samsca to 30 mg from 15 mg. Oral intake is improving with liberalization of fluid intake. The patient also advised to take Ensure and increase protein intake. We will also recheck renal function test tomorrow. We will continue Samsca 30 mg p.o. daily. Other treatment as per primary attending and oncologist. Job ID: [id number]
[2019-12-03] MEDS: Atorvastatin Calcium 10 MG TAB PO SCH (21:18)
[2019-12-04] MEDS: Morphine ER 15 MG TAB PO SCH ×3 (06:10→21:02)
[2019-12-04 06:48] LABS: ALT (SGPT) 29 U/L (8-55); AST (SGOT) 58 U/L (5-34); Alkaline Phosphatase 269 U/L (40-110); Anion Gap 9 mmol/L (10-20); BUN (Urea Nitrogen) 10 mg/dL (8.4-25.7); BUN/Creatinine Ratio 19.61; Bilirubin, Total 0.5 mg/dL (0.2-1.2); Calc. Creatinine Clearance 159 mL/min (70-130); Calcium 7.9 mg/dL (7.8-10.44); Carbon Dioxide 33 mmol/L (23-31); Chloride 95 mmol/L (98-107); Estimated GFR-MDRD Greater than 90; Globulin 2.5 g/dL (2.4-3.5); Glucose 116 mg/dL (80-115); Phosphorus 3.4 mg/dL (2.3-4.7); Potassium 4.6 mmol/L (3.5-5.1); Protein, Total 4.5 g/dL (5.8-8.1); Sodium 132 mmol/L (136-145)
[2019-12-04] MEDS: Fish Oil 1,000 MG CAP PO SCH (08:00)
[2019-12-04] MEDS: Enoxaparin Sodium 40 MG/0.4 ML SYRINGE SC SCH (08:00)
[2019-12-04] MEDS: Multivitamin W/ Minerals 1 TAB PO SCH (08:00)
[2019-12-04] MEDS: Tamsulosin HCl 0.4 MG CAP PO SCH (08:00)
[2019-12-04] MEDS: Dutasteride 0.5 MG CAP PO SCH (08:00)
[2019-12-04] MEDS: Tolvaptan 15 MG TAB PO SCH (08:00)
--- NOTE | 2019-12-04 08:39 | ULT ---
LIMITED ABDOMINAL ULTRASOUND: HISTORY: Abdominal pain and shortness of breath, history of lung cancer and liver metastasis, evaluate for asc ites. COMPARISON: 11/28/2019. FINDINGS: Very abnormal heterogeneous nodular liver echotexture certainly consistent with history of liver meta stasis. There is some is some free intraperitoneal fluid primarily in the right lower quadrant with minimal fluid in the left lower quadrant, evidence for minimal ascites. No evidence for other signif icant acute process. IMPRESSION: Minimal free intraperitoneal fluid greater in the right lower quadrant with very minimal fluid in the left lower quadrant. Overall little change from prior study. Primarily located in the right lower quadrant. POS: OFF
[2019-12-04 09:27] LABS: #Lymphocytes 0.5 thou/uL (1.20-3.40); #Monocytes 2.3 thou/uL (0.11-0.59); #Neutrophils 12.8 thou/uL (1.40-6.50); %Eosinophils 0.1 % (0.0-10.0); %Lymphocytes 3.4 % (21.0-51.0); %Monocytes 14.8 % (0.0-10.0); %Neutrophils 81.7 % (42.0-75.0); Hemoglobin 8.4 g/dL (14.0-18.0); Hypochromia SLIGHT = 6-15 cells (100X) (0-5/hpf); MDiff Complete? YES; Mean Corpuscular HGB CONC 29.9 g/dL (32.0-36.0); Mean Corpuscular Hemoglobin 25.9 pg (27.0-31.0); Mean Corpuscular Volume 86.4 fL (78.0-98.0); Mean Platelet Volume 7.6 fL (7.4-10.4); Platelet Count 289 thou/uL (130-400); Polychromasia SLIGHT = 2-3 cells (100X) (0-2/hpf); RBC Distribution Width 18.4 % (11.5-14.5); Red Blood Cell (RBC) Count 3.26 mill/uL (4.70-6.10); White Blood Cell (WBC) Count 15.6 thou/uL (4.8-10.8)
--- NOTE | 2019-12-04 09:57 | PDOC.HOSPP ---
- Subjective Encounter Date: 12/04/19 Encounter Time: 09:55 Subjective: was seen today in follow-up of generalized weakness and hyponatremia. He continues to feel very weak. He also notes the shortness of breath as well. - Objective Vital Signs & Weight: Vital Signs (12 hours) Temp Pulse Resp BP Pulse Ox 12/04/19 07:56 98.1 F 100 18 103/71 93 L Weight Admit Weight 174 lb 3 oz Weight 174 lb 3 oz I&O: 12/03/19 12/04/19 12/05/19 06:59 06:59 06:59 Intake Total 1440 960 Output Total 1800 1800 Balance -360 -840 Result Diagrams: 12/04/19 08:40 12/04/19 06:17 Hospitalist ROS - Medication Medications: Active Medications Generic Name Dose Route Start Last Admin Trade Name Freq PRN Reason Stop Dose Admin Hydrocodone Bitart/Acetaminophen 1 tab 11/27/19 00:25 12/03/19 11:12 [place] 10/325 PO 1 tab Q6H PRN Administration Severe Pain (7-10) Atorvastatin Calcium 10 mg 11/27/19 21:00 12/03/19 21:18 Lipitor PO 10 mg HS EVERARDO Administration Bisacodyl 10 mg 11/30/19 11:06 11/30/19 21:02 Dulcolax MD 10 mg DAILYPRN PRN Administration Constipation Cosyntropin 250 mcg 11/27/19 20:30 11/28/19 08:46 Cortrosyn SLOW IVP 250 mcg WILLCALL EVERARDO Administration Cyclobenzaprine HCl 10 mg 11/26/19 23:33 12/02/19 20:45 Flexeril PO 10 mg TIDPRN PRN Administration Muscle Spasm Dutasteride 0.5 mg 11/27/19 09:00 12/04/19 08:00 Avodart PO 0.5 mg DAILY EVERARDO Administration Enoxaparin Sodium 40 mg 11/27/19 09:00 12/04/19 08:00 Lovenox SC 40 mg 0900 EVERARDO Administration Fish Oil 1,000 mg 11/27/19 09:00 12/04/19 08:00 Fish Oil PO 1,000 mg DAILY EVERARDO Administration Iron/Minerals/Multivitamins 1 tab 11/27/19 09:00 12/04/19 08:00 Theragran M PO 1 tab DAILY EVERARDO Administration Levofloxacin 500 mg 11/30/19 06:00 12/04/19 06:10 Levaquin PO 500 mg 0600 EVERARDO Administration Magnesium Hydroxide 30 ml 11/30/19 11:05 11/30/19 12:03 Milk Of Magnesium PO 30 ml DAILYPRN PRN Administration Constipation Miscellaneous Medication 0 gm 11/29/19 18:13 12/01/19 21:22 Biotene Oralbalance Gel TOP 1 applic TIDPRN PRN Administration Dry Mouth Morphine Sulfate 45 mg 11/28/19 06:00 12/04/19 06:10 Ms Contin PO 45 mg Q8HR EVERARDO Administration Polyethylene Glycol 17 gm 11/27/19 00:25 11/30/19 18:12 Miralax PO 17 gm DAILY PRN Administration Constipation Simethicone 80 mg 12/01/19 19:59 12/01/19 20:08 Mylicon Chewable PO 80 mg ACHS PRN Administration Gas Pain Sodium Chloride 10 ml 11/27/19 09:00 12/04/19 08:00 Flush - Normal Saline IVF 10 ml Q12HR EVERARDO Administration Tamsulosin HCl 0.4 mg 11/27/19 09:00 12/04/19 08:00 Flomax PO 0.4 mg DAILY EVERARDO Administration Tolvaptan 30 mg 12/04/19 09:00 12/04/19 08:00 Samsca PO 30 mg DAILY EVERARDO Administration - Exam Eye: PERRL Heart: RRR, no murmur, no gallops, no rubs, normal peripheral pulses Respiratory: CTAB, no wheezes, no rales, no ronchi, normal chest expansion Gastrointestinal: soft, tender to palpation (+ mild diffuse tenderness, no rebound or guarding) Extremities: no cyanosis, no clubbing, 1+ LE edema Hosp A/P (1) Hyponatremia Code(s): E87.1 - HYPO-OSMOLALITY AND HYPONATREMIA Status: Acute (2) HTN (hypertension) Code(s): I10 - ESSENTIAL (PRIMARY) HYPERTENSION Status: Chronic Qualifiers: Hypertension type: essential hypertension Qualified Code(s): I10 - Essential (primary) hypertension - Plan * 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
--- NOTE | 2019-12-04 15:12 | PRG ---
DATE OF SERVICE: 12/04/2019 SERVICE: Nephrology. SUBJECTIVE: A 64-year-old male with metastatic lung cancer, seen in followup for hyponatremia. The patient reports feeling stronger. Swelling of the legs has improved. Oral intake is improving, but still suboptimal. No fever, nausea, or vomiting. OBJECTIVE: VITAL SIGNS: Temperature 98.1, pulse 100, respiratory rate 18, SpO2 of 93% on room air, and blood pressure is 103/71. GENERAL: Male patient, in no distress. Afebrile. Anicteric. Acyanotic. HEENT: Normocephalic, atraumatic. Oral mucosa is moist. CARDIOVASCULAR: Regular rhythm and rate with normal heart sounds one and two. RESPIRATORY: Fair air entry bilaterally with no obvious crackle or rhonchi or use of accessory muscles. GI: Full, soft, nontender, and nondistended with normal bowel sounds. EXTREMITIES: Mild bilateral leg edema noted. TOOL RADIAL DRILL PRESS SET UP OPERATOR: Conscious, alert, and oriented x3 with appropriate mental status. DIAGNOSTIC DATA: CBC showed WBC count of 15.6, hemoglobin of 8.4, and platelets of 289. Chemistry showed sodium 132, potassium 4.6, chloride 95, CO2 of 33, BUN 10, creatinine 0.51, glucose 116, calcium 7.9, and phosphorus 3.4. Total bilirubin 0.5, AST 58, ALT 29, alkaline phosphatase 269, total protein 4.5, albumin 2.0, and globulin 2.5. ASSESSMENT: 1. Hyponatremia: Due to syndrome of inappropriate antidiuretic hormone secretion related to metastatic lung cancer. Some contribution from poor solute intake cannot be ruled out. Sodium is increasing appropriately with Samsca. 2. Generalized edema: Due to hypoalbuminemia. Metastatic lung disease also is contributing to bilateral leg edema. 3. Syndrome of inappropriate antidiuretic hormone secretion. 4. Hypoalbuminemia. 5. Metastatic lung cancer. PLAN: 1. We will continue tolvaptan 30 mg p.o. daily. 2. [place] oral intake advised. 3. Continue dietary supplementation. 4. Given that the serum sodium is increasing as expected, the patient can be discharged from Nephrology point of view once deemed medically stable for discharge. However, close followup with repeat BMP is recommended. Care plan was discussed with the patient and spouse at the bedside and they verbalized understanding. We will continue to monitor intake and output. Job ID: [id number]
[2019-12-04] MEDS: Atorvastatin Calcium 10 MG TAB PO SCH (21:02)
[2019-12-05] MEDS: Morphine ER 15 MG TAB PO SCH ×3 (05:52→21:09)
[2019-12-05 06:35] LABS: Anion Gap 10 mmol/L (10-20); BUN (Urea Nitrogen) 11 mg/dL (8.4-25.7); Calc. Creatinine Clearance 159 mL/min (70-130); Calcium 7.9 mg/dL (7.8-10.44); Carbon Dioxide 34 mmol/L (23-31); Chloride 98 mmol/L (98-107); Estimated GFR-MDRD Greater than 90; Glucose 107 mg/dL (80-115); Potassium 4.6 mmol/L (3.5-5.1); Sodium 137 mmol/L (136-145)
[2019-12-05 06:38] LABS: Band 1 % (5-11); Hemoglobin 9.5 g/dL (14.0-18.0); Hypochromia SLIGHT = 6-15 cells (100X) (0-5/hpf); MDiff Complete? YES; Mean Corpuscular HGB CONC 29.9 g/dL (32.0-36.0); Mean Corpuscular Hemoglobin 26.1 pg (27.0-31.0); Mean Corpuscular Volume 87.1 fL (78.0-98.0); Mean Platelet Volume 7.4 fL (7.4-10.4); Monocytes 10 % (0-10); Neutrophil 89 % (42-75); Platelet Count 359 thou/uL (130-400); RBC Distribution Width 19.2 % (11.5-14.5); Red Blood Cell (RBC) Count 3.63 mill/uL (4.70-6.10); Toxic Granulation SLIGHT; White Blood Cell (WBC) Count 20.3 thou/uL (4.8-10.8)
[2019-12-05] MEDS: Tolvaptan 15 MG TAB PO SCH (09:23)
[2019-12-05] MEDS: Fish Oil 1,000 MG CAP PO SCH (09:23)
[2019-12-05] MEDS: Multivitamin W/ Minerals 1 TAB PO SCH (09:23)
[2019-12-05] MEDS: Dutasteride 0.5 MG CAP PO SCH (09:23)
[2019-12-05] MEDS: Tamsulosin HCl 0.4 MG CAP PO SCH (09:23)
[2019-12-05] MEDS: Enoxaparin Sodium 40 MG/0.4 ML SYRINGE SC SCH (09:24)
--- NOTE | 2019-12-05 12:01 | PDOC.HOSPP ---
- Subjective Encounter Date: 12/05/19 Encounter Time: 11:59 Subjective: was seen today in follow-up of hyponatremia, and generalized weakness. He is feeling a little stronger. He notes some continues abdominal tightness. Appetitie still could be better. - Objective Vital Signs & Weight: Vital Signs (12 hours) Temp Pulse Resp BP Pulse Ox 12/05/19 08:00 97.4 F L 96 18 108/73 94 L Weight Admit Weight 174 lb 3 oz Weight 174 lb 3 oz I&O: 12/04/19 12/05/19 12/06/19 06:59 06:59 06:59 Intake Total 960 2560 Output Total 1800 3600 Balance -840 -1040 Result Diagrams: 12/05/19 06:03 12/05/19 06:03 Hospitalist ROS - Medication Medications: Active Medications Generic Name Dose Route Start Last Admin Trade Name Freq PRN Reason Stop Dose Admin Hydrocodone Bitart/Acetaminophen 1 tab 11/27/19 00:25 12/03/19 11:12 [place] 10/325 PO 1 tab Q6H PRN Administration Severe Pain (7-10) Atorvastatin Calcium 10 mg 11/27/19 21:00 12/04/19 21:02 Lipitor PO 10 mg HS EVERARDO Administration Bisacodyl 10 mg 11/30/19 11:06 11/30/19 21:[address] 10 mg DAILYPRN PRN Administration Constipation Cosyntropin 250 mcg 11/27/19 20:30 11/28/19 08:46 Cortrosyn SLOW IVP 250 mcg WILLCALL EVERARDO Administration Cyclobenzaprine HCl 10 mg 11/26/19 23:33 12/02/19 20:45 Flexeril PO 10 mg TIDPRN PRN Administration Muscle Spasm Dutasteride 0.5 mg 11/27/19 09:00 12/05/19 09:23 Avodart PO 0.5 mg DAILY EVERARDO Administration Enoxaparin Sodium 40 mg 11/27/19 09:00 12/05/19 09:24 Lovenox SC 40 mg 0900 EVERARDO Administration Fish Oil 1,000 mg 11/27/19 09:00 12/05/19 09:23 Fish Oil PO 1,000 mg DAILY EVERARDO Administration Iron/Minerals/Multivitamins 1 tab 11/27/19 09:00 12/05/19 09:23 Theragran M PO 1 tab DAILY EVERARDO Administration Levofloxacin 500 mg 11/30/19 06:00 12/05/19 05:52 Levaquin PO 500 mg 0600 EVERARDO Administration Magnesium Hydroxide 30 ml 11/30/19 11:05 11/30/19 12:03 Milk Of Magnesium PO 30 ml DAILYPRN PRN Administration Constipation Miscellaneous Medication 0 gm 11/29/19 18:13 12/01/19 21:22 Biotene Oralbalance Gel TOP 1 applic TIDPRN PRN Administration Dry Mouth Morphine Sulfate 45 mg 11/28/19 06:00 12/05/19 05:52 Ms Contin PO 45 mg Q8HR EVERARDO Administration Polyethylene Glycol 17 gm 11/27/19 00:25 11/30/19 18:12 Miralax PO 17 gm DAILY PRN Administration Constipation Simethicone 80 mg 12/01/19 19:59 12/01/19 20:08 Mylicon Chewable PO 80 mg ACHS PRN Administration Gas Pain Sodium Chloride 10 ml 11/27/19 09:00 12/05/19 09:24 Flush - Normal Saline IVF 10 ml Q12HR EVERARDO Administration Tamsulosin HCl 0.4 mg 11/27/19 09:00 12/05/19 09:23 Flomax PO 0.4 mg DAILY EVERARDO Administration Tolvaptan 30 mg 12/04/19 09:00 12/05/19 09:23 Samsca PO 30 mg DAILY EVERARDO Administration - Exam Eye: PERRL Heart: RRR, no murmur, no gallops, no rubs, normal peripheral pulses Respiratory: CTAB, no wheezes, no rales, no ronchi, normal chest expansion Gastrointestinal: soft, non-tender, non-distended, normal bowel sounds, no palpable masses, no hepatomegaly Extremities: 1+ LE edema (+ edema in both flanks) Hosp A/P (1) Hyponatremia Code(s): E87.1 - HYPO-OSMOLALITY AND HYPONATREMIA Status: Acute (2) HTN (hypertension) Code(s): I10 - ESSENTIAL (PRIMARY) HYPERTENSION Status: Chronic Qualifiers: Hypertension type: essential hypertension Qualified Code(s): I10 - Essential (primary) hypertension - Plan * 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
--- NOTE | 2019-12-05 15:17 | PRG ---
DATE OF SERVICE: 12/05/2019 SERVICE: Nephrology. SUBJECTIVE: A 64-year-old male with metastatic lung disease, seen in followup for hyponatremia. No new problem. The patient is waiting for placement. Oral intake is improving, but remains largely suboptimal. OBJECTIVE: VITAL SIGNS: Temperature 97.4, pulse 96, respiratory rate 18, SpO2 of 94% on 2 L nasal cannula, and blood pressure is 108/73. GENERAL: Chronically ill-looking male patient, in no obvious distress. Fatigued. HEENT: Normocephalic, atraumatic. Oral mucosa is moist. NECK: Supple with no JVD. CARDIOVASCULAR: Regular rhythm and rate with normal heart sounds one and two. RESPIRATORY: Fair air entry bilaterally with no crackle or rhonchi or use of accessory muscles. GI: Full, soft, nontender, nondistended with normal bowel sounds. EXTREMITIES: Mild bilateral leg edema noted. CHECK VIEWER: Conscious and alert, oriented x3 with appropriate mental status. DIAGNOSTIC DATA: CBC showed WBC count of 20.3, hemoglobin of 9.5, MCV of 87.1, and platelets of 359. BMP showed sodium of 137, potassium 4.6, chloride 98, CO2 of 34, BUN 11, creatinine 0.51, glucose 107, and calcium 7.9. ASSESSMENT: 1. 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 2. Serum sodium has improved and in fact corrected to 137 today with commencement of tolvaptan. The patient is currently on liberal oral intake. We will continue liberal oral intake as well as current dose of tolvaptan. We will recheck renal function panel tomorrow morning and consider decreasing dose of tolvaptan to 15 daily. 3. Other treatment as per primary attending. Job ID: [id number]
[2019-12-05] MEDS: Atorvastatin Calcium 10 MG TAB PO SCH (21:09)
[2019-12-06] MEDS: Morphine ER 15 MG TAB PO SCH ×3 (05:32→20:24)
[2019-12-06 08:25] LABS: Anion Gap 15 mmol/L (10-20); BUN (Urea Nitrogen) 12 mg/dL (8.4-25.7); Calc. Creatinine Clearance 162 mL/min (70-130); Calcium 7.9 mg/dL (7.8-10.44); Carbon Dioxide 30 mmol/L (23-31); Chloride 95 mmol/L (98-107); Estimated GFR-MDRD Greater than 90; Glucose 104 mg/dL (80-115); Potassium 4.1 mmol/L (3.5-5.1); Sodium 136 mmol/L (136-145)
[2019-12-06] MEDS: Dutasteride 0.5 MG CAP PO SCH (08:46)
[2019-12-06] MEDS: Tamsulosin HCl 0.4 MG CAP PO SCH (08:46)
[2019-12-06] MEDS: Fish Oil 1,000 MG CAP PO SCH (08:46)
[2019-12-06] MEDS: Tolvaptan 15 MG TAB PO SCH (08:46)
[2019-12-06] MEDS: Multivitamin W/ Minerals 1 TAB PO SCH (08:46)
[2019-12-06] MEDS: Enoxaparin Sodium 40 MG/0.4 ML SYRINGE SC SCH (08:47)
[2019-12-06] MEDS ORDERED: Metoprolol Tartrate 25 MG TAB PO SCH (09:00)
[2019-12-06] MEDS: Digoxin 0.5 MG/2 ML AMP ONE ×2 (09:10→09:43)
--- NOTE | 2019-12-06 09:18 | RAD ---
RADIOGRAPH CHEST 1 VIEW: DATE: 12/06/2019 TIME: 9:02 AM HISTORY: 64-year-old male with tachycardia and dyspnea COMPARISON: 11/28/2019 FINDINGS: New defibrillator paddle at left lateral lower lung zone. Left subclavian implantable vascular access port again noted. No cardiomegaly or pulmonary edema. Left apex excluded from [id number]. No pneumothorax identified on right. New small right pleural effusion. Subsegmental atelectasis versus s car at right perihilar region. No gross consolidation. IMPRESSION: New small right pleural effusion.
--- NOTE | 2019-12-06 09:21 | PRG ---
DATE OF SERVICE: 12/06/2019 SERVICE: Nephrology. SUBJECTIVE: A 64-year-old male with metastatic lung cancer, seen in followup for hyponatremia due to SIADH. The patient complains of intermittent shortness of breath since this morning. He also was noted to have paroxysmal tachycardia with heart rate going up to 200s. The patient has baseline shortness of breath, which gets worse with tachyarrhythmia. Denied nausea, vomiting, or change in bowel habit. OBJECTIVE: VITAL SIGNS: Heart rate, tachyarrhythmia ranging from 109 to 203. Blood pressure is 108/63. Respiratory rate is 18, SpO2 is 95 on 2 L nasal cannula. GENERAL: Chronically ill-looking male, in some distress. HEENT: Normocephalic, atraumatic. Oral mucosa is moist. CARDIOVASCULAR: Irregular rhythm and tachycardic. RESPIRATORY: Fair air entry bilaterally with few transmitted breath sounds, but no obvious rhonchi or use of accessory muscles. GI: Enlarged, full, soft, nontender, nondistended with normal bowel sounds. EXTREMITIES: Mild bilateral leg edema noted. NET TECHNICAL ARCHITECT: Conscious and alert, oriented x3 with appropriate mental status. Cranial nerves 2 through 12 are grossly intact. DIAGNOSTIC DATA: BMP showed sodium 136, potassium 4.1, chloride 95, CO2 of 30, BUN 12, creatinine 0.50, glucose 104, and calcium 7.9. ASSESSMENT: 1. Paroxysmal tachyarrhythmia of unclear type and etiology. This seems to be symptomatic. The patient reports shortness of breath with paroxysmal tachyarrhythmia. 2. Hyponatremia: Due to syndrome of inappropriate secretion of antidiuretic hormone. Resolved with use of Samsca. Urine sodium today is 136. 3. Metastatic lung cancer. 4. Protein-calorie malnutrition. 5. Physical deconditioning. 6. Hypoalbuminemia. PLAN: 1. We get stat EKG as well as magnesium. We will transfer the patient to telemetry. 2. We will continue Samsca. Other treatment as per primary attending. Care plan was discussed with the patient and son at the bedside as well as primary attending. Job ID: [id number]
[2019-12-06 09:49] LABS: Lactic Acid 2.1 mmol/L (0.5-2.2)
--- NOTE | 2019-12-06 10:15 | RAD ---
ABDOMEN TWO VIEWS: HISTORY: Abdominal pain. Tachycardia. FINDINGS: Supine and upright portable views of the abdomen demonstrate some gas and fecal material in the colon . There are some minimally dilated loops of small bowel in the upper mid abdomen. IMPRESSION: Gas and fecal material in the colon. Several minimally dilated small bowel loops, nonspecific, possib ly some focal ileus. Consider short-term followup. POS: REBECCA
[2019-12-06 10:43] LABS: Hemoglobin 10.1 g/dL (14.0-18.0); Mean Corpuscular HGB CONC 28.6 g/dL (32.0-36.0); Mean Corpuscular Hemoglobin 25.4 pg (27.0-31.0); Mean Corpuscular Volume 88.7 fL (78.0-98.0); Mean Platelet Volume 7.9 fL (7.4-10.4); Platelet Count 351 thou/uL (130-400); RBC Distribution Width 19.3 % (11.5-14.5); Red Blood Cell (RBC) Count 3.99 mill/uL (4.70-6.10); White Blood Cell (WBC) Count 23.4 thou/uL (4.8-10.8)
[2019-12-06] MEDS: Polyethylene Glycol 3350 17 GM Packet PO PRN (12:39)
--- NOTE | 2019-12-06 12:56 | PDOC.HOSPP ---
- Subjective Encounter Date: 12/06/19 Encounter Time: 08:00 Subjective: This morning patient's heart rate was in the 200's. He complained of some shortness of breath and later had chest pain. THe patient also reported worsening abdominal discomfort. His last bowel movement was two days ago. He denies palpitations. The patient has had good urine output per nurse. Patient's EKG showed sinus tachycardia, repeat EKG showed afib with RVR. Patient given 250 cc bolus and IV digoxin. Heart rate came up to 90 and patient moved to telemetry Per , patient was drinking a lot of water yesterday and thinks that he may have gotten thirsty from the tolvaptan. - Objective Vital Signs & Weight: Vital Signs (12 hours) Temp Pulse Pulse Pulse Pulse Pulse Pulse 12/06/19 09:55 12/06/19 09:43 109 H 12/06/19 09:30 97.5 F L 90 12/06/19 08:57 178 H 194 H 174 H 171 H 165 H 12/06/19 08:20 97.5 F L 128 H Pulse Pulse Resp Resp Resp Resp Resp 12/06/19 09:55 12/06/19 09:43 12/06/19 09:30 20 12/06/19 08:57 126 H 129 H 16 18 18 16 12/06/19 08:20 22 H Resp Resp Resp BP BP BP BP 12/06/19 09:55 12/06/19 09:43 12/06/19 09:30 12/06/19 08:57 18 18 18 100/46 L 102/44 L 98/63 98/52 L 12/06/19 08:20 BP BP BP BP Pulse Ox Pulse Ox Pulse Ox 12/06/19 09:55 95 12/06/19 09:43 12/06/19 09:30 95/57 L 97 12/06/19 08:57 93/63 87/72 L 96/69 100 100 12/06/19 08:20 108/72 95 Pulse Ox Pulse Ox Pulse Ox Pulse Ox Pulse Ox 12/06/19 09:55 12/06/19 09:43 12/06/19 09:30 12/06/19 08:57 100 100 100 100 100 12/06/19 08:20 Weight Admit Weight 174 lb 3 oz Weight 174 lb 3 oz I&O: 12/05/19 12/06/19 12/07/19 06:59 06:59 06:59 Intake Total 2560 4800 240 Output Total 3600 4400 Balance -1040 400 240 Result Diagrams: 12/06/19 09:07 12/06/19 08:00 Hospitalist ROS - Review of Systems Constitutional: denies: fever, chills Cardiovascular: denies: chest pain, palpitations - Medication Medications: Active Medications Generic Name Dose Route Start Last Admin Trade Name Freq PRN Reason Stop Dose Admin Hydrocodone Bitart/Acetaminophen 1 tab 11/27/19 00:25 12/03/19 11:12 [place] 10/325 PO 1 tab Q6H PRN Administration Severe Pain (7-10) Atorvastatin Calcium 10 mg 11/27/19 21:00 12/05/19 21:09 Lipitor PO 10 mg HS EVERARDO Administration Bisacodyl 10 mg 11/30/19 11:06 11/30/19 21:02 Dulcolax ND 10 mg DAILYPRN PRN Administration Constipation Cosyntropin 250 mcg 11/27/19 20:30 11/28/19 08:46 Cortrosyn SLOW IVP 250 mcg WILLCALL EVERARDO Administration Cyclobenzaprine HCl 10 mg 11/26/19 23:33 12/02/19 20:45 Flexeril PO 10 mg TIDPRN PRN Administration Muscle Spasm Dutasteride 0.5 mg 11/27/19 09:00 12/06/19 08:46 Avodart PO 0.5 mg DAILY EVERARDO Administration Enoxaparin Sodium 40 mg 11/27/19 09:00 12/06/19 08:47 Lovenox SC 40 mg 0900 EVERARDO Administration Fish Oil 1,000 mg 11/27/19 09:00 12/06/19 08:46 Fish Oil PO 1,000 mg DAILY EVERARDO Administration Iron/Minerals/Multivitamins 1 tab 11/27/19 09:00 12/06/19 08:46 Theragran M PO 1 tab DAILY EVERARDO Administration Levofloxacin 500 mg 11/30/19 06:00 12/06/19 05:32 Levaquin PO 500 mg 0600 EVERARDO Administration Magnesium Hydroxide 30 ml 11/30/19 11:05 11/30/19 12:03 Milk Of Magnesium PO 30 ml DAILYPRN PRN Administration Constipation Miscellaneous Medication 0 gm 11/29/19 18:13 12/01/19 21:22 Biotene Oralbalance Gel TOP 1 applic TIDPRN PRN Administration Dry Mouth Morphine Sulfate 45 mg 11/28/19 06:00 12/06/19 05:32 Ms Contin PO 45 mg Q8HR EVERARDO Administration Polyethylene Glycol 17 gm 11/27/19 00:25 12/06/19 12:39 Miralax PO 17 gm DAILY PRN Administration Constipation Simethicone 80 mg 12/01/19 19:59 12/01/19 20:08 Mylicon Chewable PO 80 mg ACHS PRN Administration Gas Pain Sodium Chloride 10 ml 11/27/19 09:00 12/06/19 09:42 Flush - Normal Saline IVF 10 ml Q12HR EVERARDO Administration Tamsulosin HCl 0.4 mg 11/27/19 09:00 12/06/19 08:46 Flomax PO 0.4 mg DAILY EVERARDO Administration Tolvaptan 30 mg 12/04/19 09:00 12/06/19 08:46 Samsca PO 30 mg DAILY EVERARDO Administration - Exam General Appearance: NAD, awake alert Eye: PERRL, anicteric sclera ENT: normocephalic atraumatic, no oropharyngeal lesions Neck: supple, no JVD Heart - other findings: irregularly irregular pulse Respiratory: CTAB, no wheezes, no rales, no ronchi Gastrointestinal: soft Gastrointestinal - other findings: mild distension, RUQ tenderness and RLQ tenderness. Firm to palpation Extremities: no cyanosis, no clubbing, no edema Hosp A/P - Plan CTA chest: no PE. Increase in size of small right pleural effusion, new left pleural effusion. RUL spiculated primary lung cancer. Small to moderate sized pericardial effusion is new. New fluid within upper peritoneal cavity. New finding of edema throughout upper mesentery. CT Head: osseous metastases involving occipital calvarium EKG: first sinus tachycardia, repeat afib with RVR Abdominal X ray 12/06: gas and fecal material in the colon. Severely minimally dilated small bowel loops Chest X ray 12/06: new small right pleural effusion Abd US 12/04: minimal free intraperitoneal fluid greater in the right lower quadrant with minimal fluid in left lower quadrant MRI Brain: no acute infarct This is a 64 year old male with past medical history of stage IV lung cancer on chemotherapy who presented with near syncopal episode AFib with RVR- controlled - s/p fluid bolus and IV digoxin. Will repeat troponin. Chest X ray shows small right pleural effusion - cardiology consult placed - ECHO 11/29 showed mild MR, mild TR, EF 55-60 with diastolic dysfunction Abdominal pain - possibly constipation vs pain from cancer - abd US showed minimal ascites. X ray showed gas and fecal material in the colon, minimally dilated small bowel loops. Surgery consult was placed as well - continue laxatives - check CT abdomen with contrast Hyponatremia- possibly SIADH - improved to 132 - nephrology on board. Continue tolvaptan #Stage IV lung cancer with metastases to the right ribs, liver #Leukocytosis - WBC up to 25. Per heme onc not candidate for chemotherapy right now. Was on vanc and meropenem, received 7 days of levaquin. Will d/c antibiotics for now - per family, unclear if they want palliative or not because seeing if they would potentially recover #Neutropenic fever - resolved. No fevers Anemia of chronic disease - iron panel consistent with anemia of chronic disease - Hb 10.1, stable #Shortness of breath - possibly pericardial effusion vs pleural effusion vs pneumonia #Ascites #Postobstructive atelectasis - ECHO pending for pericardial effusion. Also has bilateral pleural effusions. Will repeat chest Xray today, give 20 mg IV lasix. Per cardiology will defer to CT surgery depending on size of pericardial effusion - continue vanc and meropenem Confusion/hallucinations - resolved - CT scan showed metastatic lesion in occipital calvarium. MRI brain with no metastases and no stroke Lactic acidosis - improved with IV fluids Code status: full code
[2019-12-06] MEDS ORDERED: Sodium Chloride 0.9% 250 ML IV SCH (14:30)
[2019-12-06 14:42] LABS: Hemoglobin 9.2 g/dL (14.0-18.0); Mean Corpuscular HGB CONC 30.5 g/dL (32.0-36.0); Mean Corpuscular Hemoglobin 26.7 pg (27.0-31.0); Mean Corpuscular Volume 87.5 fL (78.0-98.0); Mean Platelet Volume 7.4 fL (7.4-10.4); Platelet Count 321 thou/uL (130-400); RBC Distribution Width 19.5 % (11.5-14.5); Red Blood Cell (RBC) Count 3.45 mill/uL (4.70-6.10); White Blood Cell (WBC) Count 17.5 thou/uL (4.8-10.8)
[2019-12-06] MEDS ORDERED: Iopamidol-370 76% 500 ML 1 ML ONE (14:58)
[2019-12-06 15:01] LABS: Anion Gap 12 mmol/L (10-20); BUN (Urea Nitrogen) 12 mg/dL (8.4-25.7); Calc. Creatinine Clearance 150 mL/min (70-130); Calcium 7.8 mg/dL (7.8-10.44); Carbon Dioxide 32 mmol/L (23-31); Chloride 95 mmol/L (98-107); Estimated GFR-MDRD Greater than 90; Glucose 125 mg/dL (80-115); Potassium 4.1 mmol/L (3.5-5.1); Sodium 135 mmol/L (136-145)
[2019-12-06 15:25] LABS: CKMB 1.7 ng/mL (0-6.6)
--- NOTE | 2019-12-06 16:57 | CT ---
CT OF THE ABDOMEN AND PELVIS WITH IV CONTRAST INDICATION: History of lung cancer with diffuse metastatic disease and worsening abdominal pain COMPARISON: PET/CT dated October 24, 2019 and CTA of the chest dated November 27, 2019 FINDINGS: ABDOMEN: Lung bases: There are worsening moderate bilateral pleural effusions. There is stable moderate perica rdial effusion. There is bibasilar atelectasis. Liver: There is worsening diffuse hepatic metastatic disease. The largest lesions in the left hepatic lobe measuring 10.1 cm. The degree of hepatic metastatic involvement has increased from the prior PET/CT. 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 Gallbladder: There is layered density within the gallbladder suspicious for gallbladder sludge. Pancreas: Normal. Adrenal glands: There is a stable 1.4 cm right adrenal metastatic lesion. (Glands normal appearing. Spleen: Normal. Kidneys and ureters: Normal. No hydronephrosis. Vasculature: There are moderate vascular calcifications seen involving the visualized vasculature. Lymph nodes:No lymphadenopathy. Free fluid in abdomen:There is mild ascites now present likely related to the degree of hepatic metas tatic involvement and hepatic congestion. PELVIS: Small and large bowel: There is a prominent amount retained stool within the colon and rectum Appendix:Normal Bladder: Normal. Rectal and perirectal soft tissues:Moderate amount retained stool Reproductive structures: Normal. Free fluid in pelvis: Mild Lymphadenopathy pelvis: No lymphadenopathy is evident. Osseous structures: There is scattered mixed osteolytic and osteoblastic metastatic disease involving the pelvis and thoracolumbar scoliotic spine. No pathologic fracture is demonstrated. There is scattered degenerative and osteoarthritic change present. Soft tissues:There is stable metastatic disease involving the bilateral gluteal musculature. There is new anasarca IMPRESSION: 1. 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 Thi s is inducing hepatic congestion with mild to moderate ascites and anasarca. 2. Stable right adrenal metastatic lesion. Stable osseous metastatic disease. Stable muscular metasta tic lesions to the bilateral gluteal musculature. 3. Worsening moderate bilateral pleural effusions with stable moderate pericardial effusion. 4. Mild gallbladder sludge
--- NOTE | 2019-12-06 17:30 | CON ---
DATE OF CONSULTATION: 12/01/2019 REASON FOR CONSULTATION: Abdominal pain. REQUESTING PHYSICIAN: Dr. Oneil. HISTORY OF PRESENT ILLNESS: This is a 64-year-old male with a history of stage 4 lung cancer with metastases to the adrenal, liver, bone, and calvarium. He is admitted due to worsening generalized weakness and shortness of breath. He was found to have hyponatremia and metabolic acidosis. On interview, he has recently changed his chemotherapy regimen. Since that time, he is experiencing increasing abdominal discomfort and bloating. He denies any nausea or vomiting. He does endorse recent constipation. PAST MEDICAL HISTORY: 1. Stage 4 lung adenocarcinoma. 2. Hypertension. 3. Dyslipidemia. PAST SURGICAL HISTORY: 1. Shoulder surgery. 2. Port-a-Cath. 3. Tonsillectomy. FAMILY HISTORY: Noncontributory. SOCIAL HISTORY: The patient is . He denies smoking, but admits to prior alcohol use. Denies illicit drug use. ALLERGIES: PENICILLIN. HOME MEDICATIONS: 1. Lipitor. 2. Coreg. 3. Vitamin D3. 4. Decadron. 5. Avodart. 6. Hydrocodone 10/325. 7. MS-Contin. 8. MiraLax. 9. Flomax. 10. Flexeril. REVIEW OF SYSTEMS: 12-point review of systems was performed and is negative except as stated in history of present illness. PHYSICAL EXAMINATION: VITAL SIGNS: Temperature 97.5, blood pressure 95/57, HR 90, RR 20, SPO2 97% on 3L nasal cannula. GENERAL: Appears chronically ill, no acute distress. HEENT: Normocephalic and atraumatic. NECK: Supple. No masses. CARDIOVASCULAR: Irregular rate and rhythm. RESPIRATORY: Adequate air entry, clear to auscultation. ABDOMEN: Soft, possibly mildly distended. Vaguely tender to palpation. EXTREMITIES: Bilateral lower extremity edema. Poor bulk. NEUROLOGIC: No focal deficits. INTEGUMENT: No gross lesions or rashes. LABORATORY DATA: Reviewed. Demonstrates a leukocytosis of 17.5 (prior 23.4), hemoglobin 9.2, platelets count 321, mild hyponatremia 135. IMAGING: Abdominal ultrasound reviewed as well as the radiologist interpretation. Demonstrates a small amount of free fluid with heterogenous changes of the liver consistent with known metastases. Chest x-ray reviewed as well as radiologist interpretation. Shows a small right pleural effusion. Abdominal x-ray performed and demonstrates gas and fecal material in the colon. Several minimally dilated small bowel loops that are nonspecific, possibly some focal ileus. ASSESSMENT: A 64-year-old male with metastatic adenocarcinoma of the lung and abdominal pain. Unclear etiology. Differential diagnosis includes pain due to intraabdominal metastases, fullness resulting from developing ascites, ileus, or bowel obstruction. PLAN: Primary Team has ordered a CT of the abdomen and the pelvis. We will follow up CT and provide additional recommendations. Job ID: [id number] [facility]
[2019-12-06] MEDS: Atorvastatin Calcium 10 MG TAB PO SCH (20:24)
[2019-12-06 21:47] LABS: CKMB 1.4 ng/mL (0-6.6)
[2019-12-07] MEDS: Morphine ER 15 MG TAB PO SCH ×3 (05:20→22:26)
[2019-12-07 05:51] LABS: Anion Gap 12 mmol/L (10-20); BUN (Urea Nitrogen) 12 mg/dL (8.4-25.7); Calc. Creatinine Clearance 162 mL/min (70-130); Calcium 7.9 mg/dL (7.8-10.44); Carbon Dioxide 32 mmol/L (23-31); Chloride 94 mmol/L (98-107); Estimated GFR-MDRD Greater than 90; Glucose 97 mg/dL (80-115); Potassium 4.1 mmol/L (3.5-5.1); Sodium 134 mmol/L (136-145)
[2019-12-07] MEDS ORDERED: Digoxin 0.25 MG TAB PO SCH ×2 (09:00→18:00)
[2019-12-07] MEDS: Fish Oil 1,000 MG CAP PO SCH (09:29)
[2019-12-07] MEDS: Tamsulosin HCl 0.4 MG CAP PO SCH (09:29)
[2019-12-07] MEDS: Enoxaparin Sodium 40 MG/0.4 ML SYRINGE SC SCH (09:29)
[2019-12-07] MEDS: Tolvaptan 15 MG TAB PO SCH (09:29)
[2019-12-07] MEDS: Multivitamin W/ Minerals 1 TAB PO SCH (09:29)
[2019-12-07] MEDS: Dutasteride 0.5 MG CAP PO SCH (09:29)
[2019-12-07] MEDS ORDERED: Digoxin 0.125 MG TAB PO SCH (09:45)
[2019-12-07] MEDS ORDERED: Metoprolol Tartrate 5 MG/5 ML VIAL ONE (12:03)
[2019-12-07] MEDS ORDERED: Digoxin 0.5 MG/2 ML AMP SLOW IVP SCH (12:15)
[2019-12-07] MEDS ORDERED: Metoprolol Tartrate 5 MG/5 ML VIAL IVP SCH (12:15)
[2019-12-07] MEDS ORDERED: Sodium Chloride 0.9% 250 ML 250 ML IV SCH (12:15)
--- NOTE | 2019-12-07 13:00 | PDOC.BPN ---
- Brief Progress Note No acute events overnight. Feels his abdominal pain is slightly improved. Vital Signs (12 hours) Temp Pulse Resp BP Pulse Ox 12/07/19 12:11 113 H 12/07/19 11:28 97.6 F 113 H 16 117/73 96 12/07/19 09:57 101 H 12/07/19 08:25 98.4 F 105 H 14 109/75 96 12/07/19 03:14 98.0 F 110 H 14 126/83 97 Weight Admit Weight 174 lb 3 oz Weight 174 lb 3 oz EXAM: A/O, NAD Normal Respirations. ABD S/ND, remains mildly TTP in epigastrum (stable) Stable LE edema Laboratory Results - last 24 hr 12/07/19 04:34 Sodium 134 L Potassium 4.1 Chloride 94 L Carbon Dioxide 32 H Anion Gap 12 BUN 12 Creatinine 0.50 L Estimated GFR (MDRD) Greater than 90 Glucose 97 Calcium 7.9 Plan: Discussed CT findings with patient and spouse. No acute intraabdominal process. Discomfort likely due to expanding liver metastasis. No surgical intervention indicated. Will sign off. Please call for further questions.
--- NOTE | 2019-12-07 13:00 | PDOC.HOSPP ---
- Subjective Encounter Date: 12/07/19 Encounter Time: 12:58 Subjective: The patient had an episode of heart rate in the 170's this morning. He was given oral digoxin with improvement. Yesterday loaded with digoxin. Patient reports feeling some palpitations and shortness of breath at that time. Abdominal pain has improved. Got miralax yesterday but still no bowel movement. Prolonged discussion with was done about CT abdomen findings and worsening metastatic disease as well as portal vein clot. Also explained hesitancy in giving additional lasix given no effusion noted on ECHO and no ascites on US and improvement in heart rate with IV fluids yesterday - Objective Vital Signs & Weight: Vital Signs (12 hours) Temp Pulse Resp BP Pulse Ox 12/07/19 12:11 113 H 12/07/19 11:28 97.6 F 113 H 16 117/73 96 12/07/19 09:57 101 H 12/07/19 08:25 98.4 F 105 H 14 109/75 96 12/07/19 03:14 98.0 F 110 H 14 126/83 97 Weight Admit Weight 174 lb 3 oz Weight 174 lb 3 oz I&O: 12/06/19 12/07/19 12/08/19 06:59 06:59 06:59 Intake Total 4800 5510 Output Total 4400 5425 Balance 400 85 Result Diagrams: 12/06/19 14:31 12/07/19 04:34 Hospitalist ROS - Review of Systems Constitutional: denies: fever, chills ENT: denies: ear pain, mouth pain - Medication Medications: Active Medications Generic Name Dose Route Start Last Admin Trade Name Freq PRN Reason Stop Dose Admin Atorvastatin Calcium 10 mg 11/27/19 21:00 12/06/19 20:24 Lipitor PO 10 mg HS EVERARDO Administration Bisacodyl 10 mg 11/30/19 11:06 11/30/19 21:02 Dulcolax [place] 10 mg DAILYPRN PRN Administration Constipation Cosyntropin 250 mcg 11/27/19 20:30 11/28/19 08:46 Cortrosyn SLOW IVP 250 mcg WILLCALL EVERARDO Administration Cyclobenzaprine HCl 10 mg 11/26/19 23:33 12/02/19 20:45 Flexeril PO 10 mg TIDPRN PRN Administration Muscle Spasm Digoxin 0.125 mg 12/07/19 12:15 12/07/19 12:11 Lanoxin SLOW IVP 12/07/19 14:15 0.125 mg NOW EVERARDO Administration Dutasteride 0.5 mg 11/27/19 09:00 12/07/19 09:29 Avodart PO 0.5 mg DAILY EVERARDO Administration Enoxaparin Sodium 40 mg 11/27/19 09:00 12/07/19 09:29 Lovenox SC 40 mg 0900 EVERARDO Administration Fish Oil 1,000 mg 11/27/19 09:00 12/07/19 09:29 Fish Oil PO 1,000 mg DAILY EVERARDO Administration Iron/Minerals/Multivitamins 1 tab 11/27/19 09:00 12/07/19 09:29 Theragran M PO 1 tab DAILY EVERARDO Administration Magnesium Hydroxide 30 ml 11/30/19 11:05 11/30/19 12:03 Milk Of Magnesium PO 30 ml DAILYPRN PRN Administration Constipation Metoprolol Tartrate 5 mg 12/07/19 12:15 12/07/19 12:25 Lopressor IVP 12/07/19 14:15 5 mg NOW EVERARDO Administration Miscellaneous Medication 0 gm 11/29/19 18:13 12/01/19 21:22 Biotene Oralbalance Gel TOP 1 applic TIDPRN PRN Administration Dry Mouth Morphine Sulfate 45 mg 11/28/19 06:00 12/07/19 05:20 Ms Contin PO 45 mg Q8HR EVERARDO Administration Polyethylene Glycol 17 gm 11/27/19 00:25 12/06/19 12:39 Miralax PO 17 gm DAILY PRN Administration Constipation Simethicone 80 mg 12/01/19 19:59 12/01/19 20:08 Mylicon Chewable PO 80 mg ACHS PRN Administration Gas Pain Sodium Chloride 10 ml 11/27/19 09:00 12/07/19 09:30 Flush - Normal Saline IVF 10 ml Q12HR EVERARDO Administration Sodium Chloride 10 ml 11/26/19 23:11 12/07/19 12:26 Flush - Normal Saline IVF 10 ml PRN PRN Administration Saline Flush Tamsulosin HCl 0.4 mg 11/27/19 09:00 12/07/19 09:29 Flomax PO 0.4 mg DAILY EVERARDO Administration Tolvaptan 30 mg 12/04/19 09:00 12/07/19 09:29 Samsca PO 30 mg DAILY EVERARDO Administration - Exam General Appearance: NAD, awake alert Eye: PERRL, anicteric sclera ENT: normocephalic atraumatic, no oropharyngeal lesions Neck: supple, symmetric, no JVD, no thyromegaly Heart: RRR, no murmur, no gallops, no rubs Respiratory: CTAB, no wheezes, no rales, no ronchi Gastrointestinal: soft Gastrointestinal - other findings: RUQ tenderness, RLQ tenderness, mild LUQ tenderness Extremities: no cyanosis, no clubbing, no edema Hosp A/P - Plan CTA chest: no PE. Increase in size of small right pleural effusion, new left pleural effusion. RUL spiculated primary lung cancer. Small to moderate sized pericardial effusion is new. New fluid within upper peritoneal cavity. New finding of edema throughout upper mesentery. CT Head: osseous metastases involving occipital calvarium EKG: first sinus tachycardia, repeat afib with RVR Abdominal X ray 12/06: gas and fecal material in the colon. Severely minimally dilated small bowel loops Chest X ray 12/06: new small right pleural effusion Abd US 12/04: minimal free intraperitoneal fluid greater in the right lower quadrant with minimal fluid in left lower quadrant MRI Brain: no acute infarct CT abdomen: stable adrenal metastatic lesion. Mod pericardial effusion, mod pleural effusions. Diffuse hepatic metastatic disease. GB sludge. Complete occlusion of portal vein. Spinal mets noted and bilateral gluteal area This is a 64 year old male with past medical history of stage IV lung cancer on chemotherapy who presented with near syncopal episode AFib with RVR- controlled - s/p fluid bolus and IV digoxin. Troponin Xray trending up. CT shows moderate effusion but currently not hypoxic so hold off on diuresis - cardiology started on oral digoxin. Defer anticoagulation decision to them - ECHO 11/29 showed mild MR, mild TR, EF 55-60 with diastolic dysfunction Abdominal pain - possibly constipation vs metastatic lesions vs portal vein thrombosis - abd US showed minimal ascites. X ray showed gas and fecal material in the colon, minimally dilated small bowel loops. - CT abdomen with contrast showed moderate retained fecal material and some ileus. Worsening metastatic disease - also finding of portal vein thrombosis. Will consult GI with regards to anticoagulation -currently unable to get chemo yet Hyponatremia- possibly SIADH - improved to 132 - nephrology on board. Continue tolvaptan #Stage IV lung cancer with metastases to the right ribs, liver, spine, gluteal muscles #Leukocytosis - WBC down to 17, will repeat today #Neutropenic fever - resolved. No fevers Anemia of chronic disease - iron panel consistent with anemia of chronic disease - Hb 10.1, stable Code status: full code
--- NOTE | 2019-12-07 18:07 | PRG ---
DATE OF SERVICE: 12/07/2019 SERVICE: Nephrology. SUBJECTIVE: A 64-year-old male seen in followup for hyponatremia. The patient was admitted due to worsening generalized weakness and chronic debilitation. The patient has metastatic lung cancer with metastasis to the liver. The patient is sleeping this morning. No new complaints. Abdominal pain has improved. OBJECTIVE: VITAL SIGNS: Temperature 98.4, pulse 105, respiratory rate 14, SpO2 of 96% on 4 L nasal cannula, blood pressure is 109/75. GENERAL: Chronically ill-looking male, in no obvious distress. Afebrile. Anicteric. Acyanotic. HEENT: Normocephalic, atraumatic. Oral mucosa is moist. CARDIOVASCULAR: Regular rhythm and rate, but tachycardic. RESPIRATORY: Fair air entry bilaterally with some transmitted breath sounds. GASTROINTESTINAL: Abdomen is enlarged with bilateral flank abdominal wall edema. Bowel sound is hypoactive. EXTREMITIES: Mild bilateral leg edema noted. CENTRAL NERVOUS SYSTEM: Sleeping, but easily arousable. Oriented x3. INTAKE AND OUTPUT: In the last 24 hours, the patient took in 5510 mL of fluid with output of 5485. DIAGNOSTIC DATA: BMP showed sodium 134, potassium 4.1, chloride 94, CO2 of 32, BUN 12, creatinine 0.5, glucose 97, calcium 7.9. ASSESSMENT AND PLAN: 1. Hyponatremia: Due to syndrome of inappropriate antidiuretic hormone secretion related to metastatic lung cancer. Liver metastasis also may be contributory. Sodium level has improved from 120 to 137 before beginning to trend downward with excessive fluid intake. In the last 2 days, oral intake has been in the range of 5 L. We will restrict fluid intake to about 3 L per 24 hours. 2. Metastatic lung cancer with metastasis to brain and liver. Treatment as per oncologist. Repeat CT scan of the abdomen shows progression of abdominal metastasis. 3. We will recheck renal function test in the morning. Further treatment to follow depending on hospital course. We will continue tolvaptan 30 mg daily. Job ID: [id number]
[2019-12-07] MEDS ORDERED: Magnesium Citrate 300 ML BOT PO SCH (19:15)
[2019-12-07] MEDS: Fleet Enema 133 ML BOT PR SCH ×2 (20:13→22:26)
[2019-12-07] MEDS: Atorvastatin Calcium 10 MG TAB PO SCH (20:13)
[2019-12-07] MEDS ORDERED: Polyethylene Glycol 3350 17 GM Packet PO SCH (21:00)
--- NOTE | 2019-12-07 23:44 | CON ---
DATE OF CONSULTATION: 12/07/2019 CHIEF COMPLAINT: Abdominal pain. HISTORY OF PRESENT ILLNESS: is a 64-year-old man, who was admitted on 11/26/2019 with shortness of breath and diarrhea, some abdominal pain following chemotherapy for lung cancer. Imaging shows progression of his lung cancer with widely metastatic disease in the liver and muscle and bone. The patient reports aching pain across his upper abdomen, which is fairly constant, but has been worse some days than others. He has had no nausea or vomiting. He does report constipation. His last bowel movement was a couple of days ago. He had a CT scan yesterday that shows significant amount of stool throughout the colon. He has had no blood in the stool. CT also showed occlusion of the left portal vein, and GI was consulted to evaluate that. PAST MEDICAL HISTORY: Stage IV lung cancer diagnosed in March of 2019, which is widely metastatic and progressive despite chemotherapy. He did not tolerate his most recent chemotherapy. Hypertension, hyperlipidemia. PAST SURGICAL HISTORY: Bone biopsy. FAMILY HISTORY: Negative for GI malignancy. SOCIAL HISTORY: He quit smoking in the past. No drugs. Previous occasional alcohol. ALLERGIES: PENICILLIN. MEDICATIONS: 1. Atorvastatin. 2. Cosyntropin. 3. Digoxin. 4. Dutasteride. 5. Enoxaparin 40 mg subcu daily. 6. Fish oil. 7. Multiple vitamin with iron. 8. MS Contin scheduled. 9. Tamsulosin. 10. Tolvaptan. REVIEW OF SYSTEMS: Negative x10 systems reviewed, except as stated in the history of present illness. PHYSICAL EXAMINATION: VITAL SIGNS: Temperature 97.5, pulse 107, blood pressure is 100/71. GENERAL: He is in no acute distress. Alert and oriented x3. HEENT: Eyes have no scleral icterus. Oropharynx is clear without lesions. No cervical or supraclavicular lymphadenopathy. LUNGS: Clear to auscultation bilaterally. HEART: Regular rate and rhythm without murmur. ABDOMEN: Soft. Minimal tenderness in the epigastric region without guarding. Bowel sounds are present. EXTREMITIES: 1+ pitting lower extremity edema, more so on the left than the right. Cranial nerves are grossly intact. LABORATORY DATA: Creatinine 0.5. Liver tests from 12/04/2019; bilirubin 0.5, AST 58, ALT 29, alkaline phosphatase 269, albumin 2.0. White blood cell count 17.5, hemoglobin 9.2, and platelets 321. IMPRESSION: 1. Constipation. He has significant retention of stool noted by CT scan. He has had no bowel movement for the last couple of days. He has not been taking scheduled laxative over the last few days, had previously been on MiraLAX. As long as he is taking scheduled opioids, he will need to maintain a bowel regimen with daily laxatives. 2. 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 There does not appear to be an obvious extending clot, but rather compression of the portal vein from tumor in the liver. His abdominal pain could be related to distention of Edi capsule with progression of the metastatic disease in the liver. He primarily complains of tightness and fullness across his upper abdomen. RECOMMENDATIONS: 1. We will give a bottle of Mag citrate this evening and a Fleet Enema. 2. Start MiraLAX 3 times daily tomorrow and back off to once or twice daily if his stools become too loose with that. 3. We will stop his multiple vitamin with iron. Consider multiple vitamin without iron if he ends up needing that. 4. I do not see evidence of an extensive thrombus in the portal system at this point. Certainly with compression of the vein with the tumor, he could develop a thrombus in the future. I would defer anticoagulation to Hematology at that point, but for now, it does not appear to be indicated. 5. Palliative Care consultation. 6. I will sign off. Please call if GI can be of assistance. Job ID: [id number]
--- NOTE | 2019-12-08 03:28 | PDOC.EVN ---
Event Note - Event Note Event Note: RN called - Pt having intermittent SVT. Will check STAT labs 2 gm Mag x 1 Cont to monitor
[2019-12-08] MEDS ORDERED: Magnesium 2 GM/50 ML 2 GM in Premix Bag 1 BAG IVPB SCH (03:45)
[2019-12-08 05:09] LABS: Anion Gap 11 mmol/L (10-20); BUN (Urea Nitrogen) 16 mg/dL (8.4-25.7); Calc. Creatinine Clearance 140 mL/min (70-130); Calcium 7.7 mg/dL (7.8-10.44); Carbon Dioxide 32 mmol/L (23-31); Chloride 92 mmol/L (98-107); Estimated GFR-MDRD Greater than 90; Glucose 116 mg/dL (80-115); Magnesium 2.1 mg/dL (1.6-2.6); Sodium 131 mmol/L (136-145)
[2019-12-08 05:31] LABS: CKMB 0.4 ng/mL (0-6.6)
[2019-12-08] MEDS: Morphine ER 15 MG TAB PO SCH (06:02)
--- NOTE | 2019-12-08 08:14 | CON ---
DATE OF CONSULTATION: HISTORY: Randy Hopkins is a 64-year-old white male with history of stage IV lung adenocarcinoma with metastasis to multiple locations. He was admitted after a fall at home with increased weakness and has had abdominal pain and is being evaluated for that. Yesterday morning, he developed acute shortness of breath, was found to have heart rate of approximately 200 per minute. He was given intravenous fluids as well as digoxin 0.25 IV and converted to sinus rhythm. He states that he has had some of these episodes, where he feels acutely short of breath. However, this is much worsening of the previous episodes. It is also of note that he was on carvedilol 3.125 b.i.d., however, this had been stopped 5 or 6 days previously due to low blood pressure. PAST MEDICAL HISTORY: Adenocarcinoma of the lung with metastasis to the liver, adrenal gland, bone, and gluteus; hypertension; hemochromatosis; and hyperlipidemia. PAST SURGICAL HISTORY: Tonsillectomy, shoulder surgery. MEDICATIONS: At home include; 1. Atorvastatin 10 at bedtime. 2. Carvedilol 3.125 b.i.d. 3. Flexeril 10 t.i.d. p.r.n. 4. Decadron 4 mg. 5. Avodart 0.5 mg daily. 6. MS Contin 45 mg b.i.d. 7. MiraLAX p.r.n. 8. Flomax 0.4 daily. ALLERGIES: PENICILLIN. SOCIAL HISTORY: He does not smoke. FAMILY HISTORY: Father had CABG. PHYSICAL EXAMINATION: VITAL SIGNS: Blood pressure 109/75; pulse of 105, sinus tachycardia on the monitor. HEENT: PERRL. NECK: Supple. CHEST: Clear. CARDIAC: S1 and S2 normal without any S3, S4, or murmurs. ABDOMEN: Normal bowel sounds without tenderness. EXTREMITIES: Revealed 1+ pretibial edema. NEUROLOGICAL: Grossly intact. SKIN: Warm and dry. LABORATORY DATA: EKG revealed atrial tachycardia with rate of 199 per minute, low voltage. Possible old septal infarction. Sodium 134, potassium 4.1, chloride 94, carbon dioxide 32, BUN 12, and creatinine 0.54. Troponin I 0.144. Hemoglobin 9.2, hematocrit 30.2, white count 17,500, and platelets 321,000. Echocardiogram on November 29, 2019, revealed ejection fraction of 55% to 60%, evidence for diastolic dysfunction. [id number] left atrial enlargement, mild mitral regurgitation, mild tricuspid regurgitation, and small pericardial effusion. IMPRESSION: 1. Paroxysmal atrial tachycardia, which converted with digoxin 0.25 IV. 2. The patient previously on carvedilol, however, this appears to have been discontinued due to systolics below 100 frequently. 3. Abdominal pain, currently undergoing evaluation. 4. Hypertension, not requiring any medications at this time. 5. Hyperlipidemia. 6. Non-ST elevation myocardial infarction, type 2. PLAN: Mr. De Jesus blood pressure becomes somewhat of an issue in that it is low frequently. Therefore, I will treat his atrial tachycardia with digoxin. He will be given a loading dose and we will continue to follow the patient with you. Job ID: [id number] MTDD
[2019-12-08] MEDS: Tamsulosin HCl 0.4 MG CAP PO SCH (09:39)
[2019-12-08] MEDS: Digoxin 0.25 MG TAB PO SCH (09:40)
[2019-12-08] MEDS: Fish Oil 1,000 MG CAP PO SCH (09:40)
[2019-12-08] MEDS: Tolvaptan 15 MG TAB PO SCH (09:41)
[2019-12-08] MEDS: Enoxaparin Sodium 40 MG/0.4 ML SYRINGE SC SCH (09:41)
[2019-12-08] MEDS: Dutasteride 0.5 MG CAP PO SCH (09:41)
[2019-12-08] MEDS: Polyethylene Glycol 3350 17 GM Packet PO SCH ×3 (09:43→20:54)
--- NOTE | 2019-12-08 11:03 | PRG ---
DATE OF SERVICE: 12/08/2019 SERVICE: Nephrology. SUBJECTIVE: A 64-year-old male with metastatic lung cancer, seen in followup for management of hyponatremia. Abdominal pain resolved with Fleet enema for constipation. The patient however continued to have paroxysmal SVTs associated with shortness of breath. Feels better today. No nausea or vomiting. OBJECTIVE: VITAL SIGNS: Temperature 97.8, pulse 109, respiratory rate 22, SpO2 of 96% on 2 L nasal cannula, and blood pressure is 103/61. GENERAL: Comfortable male patient in no distress. Afebrile, acyanotic. HEENT: Normocephalic, atraumatic. Oral mucosa is moist. CARDIOVASCULAR: Regular rhythm and rate, but tachycardic. RESPIRATORY: Fair air entry bilaterally with some transmitted breath sounds. There is no use of accessory muscles. GI: Abdomen is full, soft, nondistended with normal bowel sounds. EXTREMITIES: Mild bilateral leg edema noted. [employer]: Conscious, alert, oriented x3 with appropriate mental status. DIAGNOSTIC DATA: BMP showed sodium 131, potassium 4.0, chloride 92, CO2 of 32, BUN 16, creatinine 0.58, glucose 116, calcium 7.7, magnesium 2.1. Note that serum sodium improved to a peak of 137 with Samsca before trending down to a mihir of 131 today. ASSESSMENT: 1. 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 Liver metastasis also may be contributory. 2. Abdominal pain: Due to constipation, resolved. 3. Metastatic lung cancer with metastasis to brain and liver. PLAN: 1. We will continue Samsca 30 mg daily. 2. We will start fluid restriction to 3 L per 24 hours. The patient actually was told to cut back free water intake. We will recheck BMP in the morning. Other treatment as per primary attending and other services. 3. Prognosis: Remain guarded given metastatic disease for which the patient is not in a position to get chemotherapy at this time. Job ID: [id number]
--- NOTE | 2019-12-08 14:16 | PDOC.MOPN ---
Interval History: pain controlled with morphine. No CP, occasional SOB - Vital Signs Vital Signs: Vital Signs (12 hours) Temp Pulse Resp BP Pulse Ox 12/08/19 09:40 107 H 12/08/19 07:49 97.2 F L 107 H 15 112/71 97 12/08/19 04:00 97.8 F 109 H 22 H 103/61 96 Weight Admit Weight 174 lb 3 oz Weight 174 lb 3 oz - Physical Exam General: Alert, Oriented x3, No acute distress HEENT: Atraumatic, PERRLA, EOMI, Mucous membr. moist/pink Lungs: Clear to auscultation, Normal air movement Cardiovascular: Other Abdomen: Other Extremities: No clubbing, No cyanosis, No edema, Normal pulses, No tenderness/ swelling Skin: No rashes, No breakdown, No significant lesion Neurological: Normal speech Psych/Mental Status: Mental status NL - Labs Result Diagrams: 12/06/19 14:31 12/08/19 04:33 Lab results: Laboratory Results - last 24 hr 12/08/19 04:33: CK-MB (CK-2) 0.4, Troponin I 0.062 H 12/08/19 04:33: Sodium 131 L, Potassium 4.0, Chloride 92 L, Carbon Dioxide 32 H , Anion Gap 11, BUN 16, Creatinine 0.58 L, Estimated GFR (MDRD) Greater than 90 , Glucose 116 H, Calcium 7.7 L, Magnesium 2.1 Status: lab reviewed by me A/P - Problem (1) Lung cancer Current Visit: Yes Code(s): C34.90 - MALIGNANT NEOPLASM OF UNSP PART OF UNSP BRONCHUS OR LUNG Status: Acute (2) Hyponatremia Current Visit: No Code(s): E87.1 - HYPO-OSMOLALITY AND HYPONATREMIA Status: Acute - Plan Plan: Long discussion about poor prognosis and plan Patient unlikely to get chemo again Agrees to DNAR but wishes to continue medications for HR control Plan to go to swing bed once HR controlled. likely hospice after SNF unless significantly improved.
[2019-12-08 16:36] LABS: Hemoglobin 10.1 g/dL (14.0-18.0); Mean Corpuscular HGB CONC 29.4 g/dL (32.0-36.0); Mean Corpuscular Hemoglobin 25.6 pg (27.0-31.0); Mean Corpuscular Volume 86.9 fL (78.0-98.0); Mean Platelet Volume 7.8 fL (7.4-10.4); Platelet Count 335 thou/uL (130-400); RBC Distribution Width 19.7 % (11.5-14.5); Red Blood Cell (RBC) Count 3.95 mill/uL (4.70-6.10); White Blood Cell (WBC) Count 21.7 thou/uL (4.8-10.8)
[2019-12-08 16:53] LABS: Anion Gap 14 mmol/L (10-20); BUN (Urea Nitrogen) 17 mg/dL (8.4-25.7); Calc. Creatinine Clearance 138 mL/min (70-130); Calcium 8.2 mg/dL (7.8-10.44); Carbon Dioxide 34 mmol/L (23-31); Chloride 91 mmol/L (98-107); Estimated GFR-MDRD Greater than 90; Glucose 142 mg/dL (80-115); Potassium 4.6 mmol/L (3.5-5.1); Sodium 134 mmol/L (136-145)
--- NOTE | 2019-12-08 18:11 | PDOC.HOSPP ---
- Subjective Encounter Date: 12/08/19 Encounter Time: 18:09 Subjective: The patient states he has no complaints today. This morning his heart rate went up into 180 and was given magnesium. HE had shortness of breath at that time, continues to have some shortness of breath but no palpitations or chest pain. His abdominal pain is better. Patient had long discussion with oncology and was told not candidate for further chemotherapy. Patient is interested in SNF prior to hospice - Objective Vital Signs & Weight: Vital Signs (12 hours) Temp Pulse Pulse Pulse Resp BP BP 12/08/19 16:39 98.0 F 107 H 15 12/08/19 15:25 113 H 109 H 108/73 111/72 12/08/19 11:35 97.6 F 113 H 17 12/08/19 09:40 107 H 12/08/19 07:49 97.2 F L 107 H 15 BP Pulse Ox 12/08/19 16:39 115/69 96 12/08/19 15:25 12/08/19 11:35 105/60 97 12/08/19 09:40 12/08/19 07:49 112/71 97 Weight Admit Weight 174 lb 3 oz Weight 174 lb 3 oz I&O: 12/07/19 12/08/19 12/09/19 06:59 06:59 06:59 Intake Total 5510 1930 Output Total 5493 6301 Balance 85 -145 Result Diagrams: 12/08/19 16:23 12/08/19 16:23 Hospitalist ROS - Review of Systems Constitutional: denies: fever, chills - Medication Medications: Active Medications Generic Name Dose Route Start Last Admin Trade Name Freq PRN Reason Stop Dose Admin Atorvastatin Calcium 10 mg 11/27/19 21:00 12/07/19 20:13 Lipitor PO 10 mg HS EVERARDO Administration Bisacodyl 10 mg 11/30/19 11:06 11/30/19 21:02 Dulcolax AR 10 mg DAILYPRN PRN Administration Constipation Cosyntropin 250 mcg 11/27/19 20:30 11/28/19 08:46 Cortrosyn SLOW IVP 250 mcg WILLCALL EVERARDO Administration Cyclobenzaprine HCl 10 mg 11/26/19 23:33 12/02/19 20:45 Flexeril PO 10 mg TIDPRN PRN Administration Muscle Spasm Digoxin 0.25 mg 12/08/19 09:00 12/08/19 09:40 Lanoxin PO 0.25 mg DAILY EVERARDO Administration Dutasteride 0.5 mg 11/27/19 09:00 12/08/19 09:41 Avodart PO 0.5 mg DAILY EVERARDO Administration Enoxaparin Sodium 40 mg 11/27/19 09:00 12/08/19 09:41 Lovenox SC 40 mg 0900 EVERARDO Administration Fish Oil 1,000 mg 11/27/19 09:00 12/08/19 09:40 Fish Oil PO 1,000 mg DAILY EVERARDO Administration Magnesium Hydroxide 30 ml 11/30/19 11:05 11/30/19 12:03 Milk Of Magnesium PO 30 ml DAILYPRN PRN Administration Constipation Miscellaneous Medication 0 gm 11/29/19 18:13 12/01/19 21:22 Biotene Oralbalance Gel TOP 1 applic TIDPRN PRN Administration Dry Mouth Polyethylene Glycol 17 gm 12/08/19 09:00 12/08/19 16:35 Miralax PO 17 gm TID EVERARDO Administration Simethicone 80 mg 12/01/19 19:59 12/01/19 20:08 Mylicon Chewable PO 80 mg ACHS PRN Administration Gas Pain Sodium Chloride 10 ml 11/27/19 09:00 12/08/19 09:43 Flush - Normal Saline IVF 10 ml Q12HR EVERARDO Administration Sodium Chloride 10 ml 11/26/19 23:11 12/07/19 12:26 Flush - Normal Saline IVF 10 ml PRN PRN Administration Saline Flush Tamsulosin HCl 0.4 mg 11/27/19 09:00 12/08/19 09:39 Flomax PO 0.4 mg DAILY EVERARDO Administration Tolvaptan 30 mg 12/04/19 09:00 12/08/19 09:41 Samsca PO 30 mg DAILY EVERARDO Administration - Exam General Appearance: NAD, awake alert Eye: PERRL, anicteric sclera ENT: normocephalic atraumatic, no oropharyngeal lesions Neck: supple, no JVD Heart: RRR, no murmur, no gallops, no rubs Respiratory: CTAB, no wheezes, no rales, no ronchi Gastrointestinal: soft, non-distended, normal bowel sounds Gastrointestinal - other findings: RUQ tenderness Extremities: no cyanosis, no clubbing, no edema, 2+ LE edema Skin: normal turgor, no lesions, no rashes Neurological: cranial nerve grossly intact, normal sensation to touch, no focal deficits, no new deficit Musculoskeletal: normal tone, normal strength, no muscle wasting Hosp A/P - Plan CTA chest: no PE. Increase in size of small right pleural effusion, new left pleural effusion. RUL spiculated primary lung cancer. Small to moderate sized pericardial effusion is new. New fluid within upper peritoneal cavity. New finding of edema throughout upper mesentery. CT Head: osseous metastases involving occipital calvarium EKG: first sinus tachycardia, repeat afib with RVR Abdominal X ray 12/06: gas and fecal material in the colon. Severely minimally dilated small bowel loops Chest X ray 12/06: new small right pleural effusion Abd US 12/04: minimal free intraperitoneal fluid greater in the right lower quadrant with minimal fluid in left lower quadrant MRI Brain: no acute infarct CT abdomen: stable adrenal metastatic lesion. Mod pericardial effusion, mod pleural effusions. Diffuse hepatic metastatic disease. GB sludge. Complete occlusion of portal vein. Spinal mets noted and bilateral gluteal area This is a 64 year old male with past medical history of stage IV lung cancer on chemotherapy who presented with near syncopal episode AFib with RVR- controlled - s/p fluid bolus and IV digoxin. Troponin is downtrending. CT shows moderate effusion - cardiology started on oral digoxin. Defer anticoagulation decision to them - ECHO 11/29 showed mild MR, mild TR, EF 55-60 with diastolic dysfunction - will give dose of IV lasix Acute hypoxic respiratory failure - likely from stage IV cancer vs pleural effusion - chest Xray 12/06 shows small right pleural effusion - will give dose of 20 mg IV lasix due to edema on exam #Stage IV lung cancer with metastases to the right ribs, liver, spine, gluteal muscles #Leukocytosis - WBC up to 21, likely from cancer - not candidate for chemotherapy per hem/onc Abdominal pain - possibly metastatic lesions of the liver vs portal vein thrombosis vs constipation - abd US showed minimal ascites. X ray showed gas and fecal material in the colon, minimally dilated small bowel loops. - CT abdomen with contrast showed moderate retained fecal material and some ileus. Worsening metastatic disease - also finding of portal vein thrombosis noted, but per GI did not seem like it and did not recommend anticoagulation - not candidate for further chemo Hyponatremia- possibly SIADH -worsened, per nephrology, cut back to 3L a day - nephrology on board. Continue tolvaptan #Neutropenic fever - resolved. No fevers Anemia of chronic disease - iron panel consistent with anemia of chronic disease - Hb 10.1, stable Disposition: if afib controlled overnight, then will look into SNF Code status: full code
[2019-12-08] MEDS ORDERED: Furosemide 20 MG/2 ML VIAL SLOW IVP SCH (18:15)
[2019-12-08] MEDS: Metoprolol Tartrate 25 MG TAB PO SCH (20:53)
[2019-12-08] MEDS: Atorvastatin Calcium 10 MG TAB PO SCH (20:53)
[2019-12-09 04:33] LABS: Anion Gap 12 mmol/L (10-20); BUN (Urea Nitrogen) 18 mg/dL (8.4-25.7); Calc. Creatinine Clearance 156 mL/min (70-130); Carbon Dioxide 34 mmol/L (23-31); Chloride 91 mmol/L (98-107); Estimated GFR-MDRD Greater than 90; Glucose 102 mg/dL (80-115); Potassium 4.3 mmol/L (3.5-5.1); Sodium 133 mmol/L (136-145)
[2019-12-09 04:37] LABS: Hemoglobin 8.8 g/dL (14.0-18.0); Mean Corpuscular HGB CONC 29.7 g/dL (32.0-36.0); Mean Corpuscular Hemoglobin 25.7 pg (27.0-31.0); Mean Corpuscular Volume 86.6 fL (78.0-98.0); Mean Platelet Volume 7.5 fL (7.4-10.4); Platelet Count 335 thou/uL (130-400); RBC Distribution Width 19.9 % (11.5-14.5); Red Blood Cell (RBC) Count 3.43 mill/uL (4.70-6.10); White Blood Cell (WBC) Count 21.2 thou/uL (4.8-10.8)
[2019-12-09 04:41] LABS: Digoxin 0.77 ng/mL (0.8-2.0)
[2019-12-09] MEDS ORDERED: HYDROcodone/Acetaminophen 5/325 mg Tablet PO SCH (05:30)
[2019-12-09] MEDS: Dutasteride 0.5 MG CAP PO SCH (08:48)
[2019-12-09] MEDS: Tamsulosin HCl 0.4 MG CAP PO SCH (08:48)
[2019-12-09] MEDS: Digoxin 0.25 MG TAB PO SCH (08:48)
[2019-12-09] MEDS: Fish Oil 1,000 MG CAP PO SCH (08:48)
[2019-12-09] MEDS: Enoxaparin Sodium 40 MG/0.4 ML SYRINGE SC SCH (08:49)
[2019-12-09] MEDS: Polyethylene Glycol 3350 17 GM Packet PO SCH (08:50)
[2019-12-09] MEDS: Metoprolol Tartrate 25 MG TAB PO SCH ×2 (08:51→20:38)
--- NOTE | 2019-12-09 09:13 | PRG ---
DATE OF SERVICE: 12/09/2019 This is a patient seen by Dr. Houston. I am covering for today. SUBJECTIVE: This patient is being followed for hyponatremia. Working diagnosis is that this patient may have underlying SIADH. He does have history of lung cancer, which is metastatic. Recently, he was started on tolvaptan 30 mg daily. He is also on fluid restriction of about 3 L. Serum sodium remains about the same, but stable. He denies any complaints of chest pain, shortness of breath, or confusion. OBJECTIVE: VITAL SIGNS: Blood pressure is noted at 111/72 with a heart rate of 96, respiratory rate is to 18, O2 saturation 98%, temperature 97.4. GENERAL: Noted to be awake, alert, supine, comfortable, not in distress. SKIN: Adequate turgor. HEENT: He does have slightly pale conjunctivae. Anicteric sclerae. NECK: No neck mass. No carotid bruits. No JVD. CHEST: No deformities. LUNGS: Decreased breath sounds. HEART: Normal sinus rhythm. No murmur. No gallops. No rubs. ABDOMEN: Globular, soft, nontender. No masses. EXTREMITIES: No edema. MEDICATIONS: Medications of December 09, 2019, were reviewed. LABORATORY DATA: Laboratories of December 09, 2019; white count 21.2, hemoglobin 8.8. Sodium 136, potassium 4.1, chloride 95, carbon dioxide 30, BUN 12, creatinine 0.5, glucose 104, calcium 7.9. December 09, 2019; serum sodium is now 133, potassium 4.3, chloride 91, carbon dioxide 34, BUN 18, creatinine 0.52, calcium is 8.0. ASSESSMENT AND PLAN: 1. Hyponatremia-secondary to presumptive syndrome of inappropriate antidiuretic hormone secretion. Currently, on tolvaptan 30 mg tablet once a day. Continue free water restriction. We will add sodium chloride at 1 g p.o. t.i.d. There is no indication for any IV hypertonic saline since the serum sodium is relatively stable at 133. 2. Lung cancer with metastasis-continue supportive care. Pulmonary following. 3. Recheck basic metabolic panel in a.m. Job ID: [id number]
[2019-12-09] MEDS: Sodium Chloride 1 GM TAB PO SCH ×3 (09:53→20:41)
[2019-12-09] MEDS: Tolvaptan 15 MG TAB PO SCH (09:56)
[2019-12-09] MEDS ORDERED: Morphine ER 15 MG TAB PO SCH (10:00)
[2019-12-09] MEDS ORDERED: Furosemide 20 MG/2 ML VIAL SLOW IVP SCH (12:00)
--- NOTE | 2019-12-09 12:39 | RAD ---
XR Chest 1 View Portable HISTORY: Evaluate pleural effusions COMPARISON: 12/06/2019 FINDINGS: The heart size is normal. Left-sided Port-A-Cath remains in place. Patchy density in the ri ght midlung is again noted. There are small bilateral pleural effusions.
--- NOTE | 2019-12-09 13:36 | PDOC.MOPN ---
Interval History: depressed today. pain meds stopped and restarted. - Vital Signs Vital Signs: Vital Signs (12 hours) Temp Pulse Pulse Resp BP BP BP 12/09/19 11:41 98.3 F 70 25 H 114/59 L 12/09/19 10:14 98 103/65 12/09/19 10:04 97 24 H 102/66 12/09/19 08:50 97/65 12/09/19 08:48 99 12/09/19 07:47 97.4 F L 96 108/60 12/09/19 03:17 98.6 F 101 H 18 97/66 Pulse Ox 12/09/19 11:41 97 12/09/19 10:14 12/09/19 10:04 97 12/09/19 08:50 12/09/19 08:48 12/09/19 07:47 98 12/09/19 03:17 97 Weight Admit Weight 174 lb 3 oz Weight 174 lb 3 oz - Physical Exam General: Alert, Oriented x3, No acute distress HEENT: Atraumatic, PERRLA, EOMI, Mucous membr. moist/pink Lungs: Clear to auscultation, Normal air movement Cardiovascular: Other Abdomen: Other Extremities: No clubbing, No cyanosis, No edema, Normal pulses, No tenderness/ swelling Skin: No rashes, No breakdown, No significant lesion Neurological: Normal speech Psych/Mental Status: Mood NL - Labs Result Diagrams: 12/09/19 03:54 12/09/19 03:54 Lab results: Laboratory Results - last 24 hr 12/09/19 03:54: Digoxin 0.77 L 12/09/19 03:54: WBC 21.2 H, RBC 3.43 L, Hgb 8.8 L, Hct 29.7 L, MCV 86.6, MCH 25.7 L, MCHC 29.7 L, RDW 19.9 H, Plt Count 335, MPV 7.5 12/09/19 03:54: Sodium 133 L, Potassium 4.3, Chloride 91 L, Carbon Dioxide 34 H , Anion Gap 12, BUN 18, Creatinine 0.52 L, Estimated GFR (MDRD) Greater than 90 , Glucose 102, Calcium 8.0 12/08/19 16:23: WBC 21.7 H, RBC 3.95 L, Hgb 10.1 L, Hct 34.4 L, MCV 86.9, MCH 25.6 L, MCHC 29.4 L, RDW 19.7 H, Plt Count 335, MPV 7.8 12/08/19 16:23: Sodium 134 L, Potassium 4.6, Chloride 91 L, Carbon Dioxide 34 H , Anion Gap 14, BUN 17, Creatinine 0.59 L, Estimated GFR (MDRD) Greater than 90 , Glucose 142 H, Calcium 8.2 Status: lab reviewed by me A/P - Problem (1) Lung cancer Current Visit: Yes Code(s): C34.90 - MALIGNANT NEOPLASM OF UNSP PART OF UNSP BRONCHUS OR LUNG Status: Acute (2) Hyponatremia Current Visit: No Code(s): E87.1 - HYPO-OSMOLALITY AND HYPONATREMIA Status: Acute - Plan Plan: supportive care to skilled once ok with consultants chemo held until stronger may need hospice after snf.
[2019-12-09] MEDS: Morphine ER 15 MG TAB PO SCH ×2 (15:14→20:37)
--- NOTE | 2019-12-09 17:46 | PDOC.HOSPP ---
- Subjective Encounter Date: 12/09/19 Encounter Time: 11:00 Subjective: The patient is stilll short of breath. Abdominal pain has improved. He is now having diarrhea Family is interested in a swing bed - Objective Vital Signs & Weight: Vital Signs (12 hours) Temp Pulse Pulse Resp BP BP BP 12/09/19 15:44 97.4 F L 95 22 H 111/66 12/09/19 11:41 98.3 F 70 25 H 114/59 L 12/09/19 10:14 98 103/65 12/09/19 10:04 97 24 H 102/66 12/09/19 08:50 97/65 12/09/19 08:48 99 12/09/19 07:47 97.4 F L 96 108/60 Pulse Ox 12/09/19 15:44 97 12/09/19 11:41 97 12/09/19 10:14 12/09/19 10:04 97 12/09/19 08:50 12/09/19 08:48 12/09/19 07:47 98 Weight Admit Weight 174 lb 3 oz Weight 174 lb 3 oz I&O: 12/08/19 12/09/19 12/10/19 06:59 06:59 06:59 Intake Total 1930 4 Output Total 2074 2225 Balance -145 -151 Result Diagrams: 12/09/19 03:54 12/09/19 03:54 Hospitalist ROS - Review of Systems Constitutional: denies: fever, chills - Medication Medications: Active Medications Generic Name Dose Route Start Last Admin Trade Name Freq PRN Reason Stop Dose Admin Atorvastatin Calcium 10 mg 11/27/19 21:00 12/08/19 20:53 Lipitor PO 10 mg HS EVERARDO Administration Bisacodyl 10 mg 11/30/19 11:06 11/30/19 21:02 Dulcolax IN 10 mg DAILYPRN PRN Administration Constipation Cosyntropin 250 mcg 11/27/19 20:30 11/28/19 08:46 Cortrosyn SLOW IVP 250 mcg WILLCALL EVEARRDO Administration Cyclobenzaprine HCl 10 mg 11/26/19 23:33 12/02/19 20:45 Flexeril PO 10 mg TIDPRN PRN Administration Muscle Spasm Digoxin 0.25 mg 12/08/19 09:00 12/09/19 08:48 Lanoxin PO 0.25 mg DAILY EVERARDO Administration Dutasteride 0.5 mg 11/27/19 09:00 12/09/19 08:48 Avodart PO 0.5 mg DAILY EVERARDO Administration Enoxaparin Sodium 40 mg 11/27/19 09:00 12/09/19 08:49 Lovenox SC 40 mg 0900 EVERARDO Administration Fish Oil 1,000 mg 11/27/19 09:00 12/09/19 08:48 Fish Oil PO 1,000 mg DAILY EVERARDO Administration Magnesium Hydroxide 30 ml 11/30/19 11:05 11/30/19 12:03 Milk Of Magnesium PO 30 ml DAILYPRN PRN Administration Constipation Metoprolol Tartrate 12.5 mg 12/08/19 21:00 12/09/19 08:51 Lopressor PO Not Given BID [facility] Miscellaneous Medication 0 gm 11/29/19 18:13 12/01/19 21:22 Biotene Oralbalance Gel TOP 1 applic TIDPRN PRN Administration Dry Mouth Morphine Sulfate 45 mg 12/09/19 15:00 12/09/19 15:14 Ms Contin PO 45 mg TID [facility] Administration Simethicone 80 mg 12/01/19 19:59 12/01/19 20:08 Mylicon Chewable PO 80 mg ACHS PRN Administration Gas Pain Sodium Chloride 10 ml 11/27/19 09:00 12/09/19 08:51 Flush - Normal Saline IVF 10 ml Q12HR EVERARDO Administration Sodium Chloride 10 ml 11/26/19 23:11 12/07/19 12:26 Flush - Normal Saline IVF 10 ml PRN PRN Administration Saline Flush Sodium Chloride 1 gm 12/09/19 09:00 12/09/19 15:14 Sodium Chloride PO 1 gm TID EVERARDO Administration Tamsulosin HCl 0.4 mg 11/27/19 09:00 12/09/19 08:48 Flomax PO 0.4 mg DAILY [facility] Administration Tolvaptan 30 mg 12/04/19 09:00 12/09/19 09:56 Samsca PO 30 mg DAILY EVERARDO Administration - Exam General Appearance: NAD, awake alert Eye: PERRL, anicteric sclera ENT: normocephalic atraumatic, no oropharyngeal lesions Neck: no JVD Heart: RRR, no murmur, no gallops, no rubs Respiratory: CTAB, no wheezes, no rales, no ronchi Gastrointestinal: soft, non-tender, non-distended, normal bowel sounds Extremities: no cyanosis, no clubbing, 2+ LE edema Skin: normal turgor, no lesions, no rashes Neurological: cranial nerve grossly intact, normal sensation to touch, no focal deficits, no new deficit Musculoskeletal: normal tone, normal strength, no muscle wasting Psychiatric: normal affect, normal behavior, A&O x 3, oriented to person Hosp A/P - Plan CTA chest: no PE. Increase in size of small right pleural effusion, new left pleural effusion. RUL spiculated primary lung cancer. Small to moderate sized pericardial effusion is new. New fluid within upper peritoneal cavity. New finding of edema throughout upper mesentery. CT Head: osseous metastases involving occipital calvarium EKG: first sinus tachycardia, repeat afib with RVR Abdominal X ray 12/06: gas and fecal material in the colon. Severely minimally dilated small bowel loops Chest X ray 12/06: new small right pleural effusion Abd US 12/04: minimal free intraperitoneal fluid greater in the right lower quadrant with minimal fluid in left lower quadrant MRI Brain: no acute infarct CT abdomen: stable adrenal metastatic lesion. Mod pericardial effusion, mod pleural effusions. Diffuse hepatic metastatic disease. GB sludge. Complete occlusion of portal vein. Spinal mets noted and bilateral gluteal area This is a 64 year old male with past medical history of stage IV lung cancer on chemotherapy who presented with near syncopal episode Acute hypoxic respiratory failure - likely from stage IV cancer vs pleural effusion - chest Xray 12/06 shows small right pleural effusion - got 20 mg IV lasix 12/08, will give another dose today - repeat chest Xray shows bilateral effusions AFib with RVR- controlled - s/p fluid bolus and IV digoxin. Troponin is downtrending. CT shows moderate effusion - cardiology started on oral digoxin. Defer anticoagulation decision to them - ECHO 11/29 showed mild MR, mild TR, EF 55-60 with diastolic dysfunction #Stage IV lung cancer with metastases to the right ribs, liver, spine, gluteal muscles #Leukocytosis - WBC up to 21, likely from cancer - not candidate for chemotherapy per hem/onc Abdominal pain - possibly metastatic lesions of the liver vs portal vein thrombosis vs constipation - abd US showed minimal ascites. X ray showed gas and fecal material in the colon, minimally dilated small bowel loops. - CT abdomen with contrast showed moderate retained fecal material and some ileus. 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 No fevers Anemia of chronic disease - iron panel consistent with anemia of chronic disease - Hb 10.1, stable Disposition: if afib controlled overnight, then will look into SNF Code status: full code
[2019-12-09] MEDS: Atorvastatin Calcium 10 MG TAB PO SCH (20:38)
--- NOTE | 2019-12-09 21:05 | EKG ---
Test Reason : Blood Pressure : / mmHG Vent. Rate : 188 BPM Atrial Rate : 214 BPM P-R Int : 000 ms QRS Dur : 072 ms QT Int : 248 ms P-R-T Axes : 000 066 -83 degrees QTc Int : 438 ms Atrial fibrillation with rapid ventricular response Low voltage QRS Septal infarct (cited on or before 26-NOV-2019) Abnormal ECG When compared with ECG of 26-NOV-2019 18:12, (Unconfirmed) Atrial fibrillation has replaced Sinus rhythm Vent. rate has increased BY 78 BPM Nonspecific T wave abnormality, worse in Anterior leads Confirmed by Darshan MATTHEWS ([id number]) on 12/09/2019 9:05:36 PM Referred By: [facility] Confirmed By:Darshan MATTHEWS
--- NOTE | 2019-12-09 21:05 | EKG ---
Test Reason : Blood Pressure : / mmHG Vent. Rate : 199 BPM Atrial Rate : 199 BPM P-R Int : 124 ms QRS Dur : 070 ms QT Int : 172 ms P-R-T Axes : 000 068 258 degrees QTc Int : 313 ms Poor data quality, interpretation may be adversely affected Sinus tachycardia with Fusion complexes Low voltage QRS Septal infarct (cited on or before 26-NOV-2019) Abnormal ECG When compared with ECG of 26-NOV-2019 18:12, (Unconfirmed) Fusion complexes are now Present Vent. rate has increased BY 89 BPM T wave inversion now evident in Anterolateral leads Confirmed by Darshan MATTHEWS ([id number]) on 12/09/2019 9:05:29 PM Referred By: [facility] Confirmed By:Darshan MATTHEWS
[2019-12-10 04:58] LABS: Anion Gap 13 mmol/L (10-20); BUN (Urea Nitrogen) 17 mg/dL (8.4-25.7); Calc. Creatinine Clearance 169 mL/min (70-130); Calcium 8.2 mg/dL (7.8-10.44); Carbon Dioxide 34 mmol/L (23-31); Chloride 93 mmol/L (98-107); Estimated GFR-MDRD Greater than 90; Glucose 91 mg/dL (80-115); Potassium 4.2 mmol/L (3.5-5.1); Sodium 136 mmol/L (136-145)
--- NOTE | 2019-12-10 07:19 | PRG ---
DATE OF SERVICE: 12/10/2019 SUBJECTIVE: is a 64-year-old white male with known history of metastatic lung cancer. We are following up this patient for his hyponatremia secondary to presumed SIADH. The patient has been on tolvaptan. Yesterday, we did add sodium chloride 1 g p.o. t.i.d. The patient voices no new complaints. He is mentating well. OBJECTIVE: VITAL SIGNS: Blood pressure is 99/56 with a peak value of 114/59, heart rate 81, respiratory rate 18, and temperature 97, and pulse ox 95%. GENERAL: Noted to be awake, alert, comfortable, not in distress. SKIN: Adequate turgor. HEENT: Slightly pale conjunctivae. Anicteric sclerae. NECK: No neck mass. No carotid bruits. No JVD. CHEST: No deformities. LUNGS: Decreased breath sounds. HEART: Normal sinus rhythm. No murmur. No gallops. No rubs. ABDOMEN: Globular, soft, and nontender. No masses. EXTREMITIES: No edema. No deformities. MEDICATIONS: Medications of December 10, 2019, were reviewed. LABORATORY DATA: Laboratories of December 09, 2019; white count 21.2, hemoglobin 8.8. On December 10, 2019; sodium 136, potassium 4.2, chloride 93, carbon dioxide 34, BUN 17, and creatinine 0.48. ASSESSMENT AND PLAN: 1. Hyponatremia secondary to presumed syndrome of inappropriate antidiuretic hormone secretion, clinically much improved. Currently, the patient is on tolvaptan. We did add sodium chloride tablet 1 g p.o. t.i.d. We will continue current management. Judicious use of diuretics. 2. Lung cancer with mets Oncology following. Overall, prognosis remains guarded. Recheck basic metabolic panel in a.m. Job ID: [id number]
[2019-12-10] MEDS: Digoxin 0.25 MG TAB PO SCH (08:28)
[2019-12-10] MEDS: Metoprolol Tartrate 25 MG TAB PO SCH ×2 (08:28→20:54)
[2019-12-10] MEDS: Fish Oil 1,000 MG CAP PO SCH (08:28)
[2019-12-10] MEDS: Dutasteride 0.5 MG CAP PO SCH (08:29)
[2019-12-10] MEDS: Tamsulosin HCl 0.4 MG CAP PO SCH (08:29)
[2019-12-10] MEDS: Morphine ER 15 MG TAB PO SCH ×3 (08:29→20:53)
[2019-12-10] MEDS: Tolvaptan 15 MG TAB PO SCH (08:30)
[2019-12-10] MEDS: Enoxaparin Sodium 40 MG/0.4 ML SYRINGE SC SCH (08:30)
[2019-12-10] MEDS: Sodium Chloride 1 GM TAB PO SCH ×3 (08:30→21:06)
[2019-12-10] MEDS: Simethicone Chewable 80 MG TAB PO PRN (08:39)
[2019-12-10] MEDS: Polyethylene Glycol 3350 17 GM Packet PO PRN (11:07)
--- NOTE | 2019-12-10 16:22 | RAD ---
XR Chest 1 View Portable HISTORY: Pleural effusion COMPARISON: Previous day FINDINGS: The heart size is normal. Left-sided Port-A-Cath remains in place. There is been interval w orsening of the patchy opacity in the right mid and lower lung zones since the previous study. No pneumothoraces or large effusions are seen.
--- NOTE | 2019-12-10 17:11 | PDOC.HOSPP ---
- Subjective Encounter Date: 12/10/19 Encounter Time: 10:00 Subjective: The patient feels very short of breath still. He states he was unable to sit up on the edge of the bed due to some dizziness. He denies cough. No fevers. Patient received 10 days of antibiotics with vanc/meropenem and levaquin from to 12/06. Chest Xray shows worsening of right lung opacity The patient reports allergy to penicillin, doesn't know what it was. Discussed trying clindamycin again to see if it improves his strength. Per rehab, they would like to see him at least able to get into a chair to be confident he will do well in rehab Patient has had no bowel movement since yesterday morning and has some abdominal pain still - Objective Vital Signs & Weight: Vital Signs (12 hours) Temp Pulse Pulse Pulse Resp BP BP 12/10/19 16:00 97.6 F 95 14 12/10/19 12:00 12/10/19 11:15 98.0 F 86 16 12/10/19 09:22 104 H 105 H 113/73 110/72 12/10/19 08:28 107 H 12/10/19 07:50 97.6 F 107 H 17 BP BP BP Pulse Ox 12/10/19 16:00 109/67 98 12/10/19 12:00 105/77 109/60 12/10/19 11:15 98/63 96 12/10/19 09:22 12/10/19 08:28 12/10/19 07:50 126/72 96 Weight Admit Weight 174 lb 3 oz Weight 174 lb 3 oz I&O: 12/09/19 12/10/19 12/11/19 06:59 06:59 06:59 Intake Total 2074 1560 Output Total 2225 3000 Balance -151 -1440 Result Diagrams: 12/09/19 03:54 12/10/19 04:01 Hospitalist ROS - Review of Systems Constitutional: denies: fever Respiratory: denies: cough, dry, sputum Cardiovascular: denies: palpitations - Medication Medications: Active Medications Generic Name Dose Route Start Last Admin Trade Name Freq PRN Reason Stop Dose Admin Atorvastatin Calcium 10 mg 11/27/19 21:00 12/09/19 20:38 Lipitor PO 10 mg HS EVERARDO Administration Bisacodyl 10 mg 11/30/19 11:06 11/30/19 21:02 Dulcolax MD 10 mg DAILYPRN PRN Administration Constipation Cosyntropin 250 mcg 11/27/19 20:30 11/28/19 08:46 Cortrosyn SLOW IVP 250 mcg WILLCALL EVERARDO Administration Cyclobenzaprine HCl 10 mg 11/26/19 23:33 12/02/19 20:45 Flexeril PO 10 mg TIDPRN PRN Administration Muscle Spasm Digoxin 0.25 mg 12/08/19 09:00 12/10/19 08:28 Lanoxin PO 0.25 mg DAILY EVERARDO Administration Dutasteride 0.5 mg 11/27/19 09:00 12/10/19 08:29 Avodart PO 0.5 mg DAILY [facility] Administration Enoxaparin Sodium 40 mg 11/27/19 09:00 12/10/19 08:30 Lovenox SC 40 mg 0900 [facility] Administration Fish Oil 1,000 mg 11/27/19 09:00 12/10/19 08:28 Fish Oil PO 1,000 mg DAILY [facility] Administration Metoprolol Tartrate 12.5 mg 12/08/19 21:00 12/10/19 08:28 Lopressor PO 12.5 mg BID [facility] Administration Miscellaneous Medication 0 gm 11/29/19 18:13 12/01/19 21:22 Biotene Oralbalance Gel TOP 1 applic TIDPRN PRN Administration Dry Mouth Morphine Sulfate 45 mg 12/09/19 15:00 12/10/19 16:01 Ms Contin PO 45 mg TID [facility] Administration Polyethylene Glycol 17 gm 12/10/19 10:34 12/10/19 11:07 Miralax PO 17 gm DAILYPRN PRN Administration Constipation Simethicone 80 mg 12/01/19 19:59 12/10/19 08:39 Mylicon Chewable PO 80 mg ACHS PRN Administration Gas Pain Sodium Chloride 10 ml 11/27/19 09:00 12/10/19 08:30 Flush - Normal Saline IVF 10 ml Q12HR EVERARDO Administration Sodium Chloride 10 ml 11/26/19 23:11 12/07/19 12:26 Flush - Normal Saline IVF 10 ml PRN PRN Administration Saline Flush Sodium Chloride 1 gm 12/09/19 09:00 12/10/19 16:01 Sodium Chloride PO 1 gm TID EVERARDO Administration Tamsulosin HCl 0.4 mg 11/27/19 09:00 12/10/19 08:29 Flomax PO 0.4 mg DAILY EVERARDO Administration Tolvaptan 30 mg 12/04/19 09:00 12/10/19 08:30 Samsca PO 30 mg DAILY EVERARDO Administration - Exam General Appearance: NAD, awake alert Eye: PERRL, anicteric sclera ENT: normocephalic atraumatic, no oropharyngeal lesions Neck: supple, symmetric, no JVD, no thyromegaly Heart: RRR, no murmur, no gallops, no rubs Respiratory: CTAB, no wheezes, no ronchi Respiratory - other findings: diminished breath sounds at right lung base Gastrointestinal: soft, non-distended Gastrointestinal - other findings: RUQ and RLQ tenderness. Hypoactive bowel sounds. Extremities: no cyanosis, no clubbing, no edema Skin: normal turgor, no lesions, no rashes Neurological: cranial nerve grossly intact, normal sensation to touch, no focal deficits, no new deficit Hosp A/P - Plan CTA chest: no PE. Increase in size of small right pleural effusion, new left pleural effusion. RUL spiculated primary lung cancer. Small to moderate sized pericardial effusion is new. New fluid within upper peritoneal cavity. New finding of edema throughout upper mesentery. CT Head: osseous metastases involving occipital calvarium EKG: first sinus tachycardia, repeat afib with RVR Abdominal X ray 12/06: gas and fecal material in the colon. Severely minimally dilated small bowel loops Chest X ray 12/06: new small right pleural effusion Abd US 12/04: minimal free intraperitoneal fluid greater in the right lower quadrant with minimal fluid in left lower quadrant MRI Brain: no acute infarct CT abdomen: stable adrenal metastatic lesion. Mod pericardial effusion, mod pleural effusions. Diffuse hepatic metastatic disease. GB sludge. Complete occlusion of portal vein. Spinal mets noted and bilateral gluteal area This is a 64 year old male with past medical history of stage IV lung cancer on chemotherapy who presented with near syncopal episode Acute hypoxic respiratory failure - likely from stage IV cancer vs pleural effusion vs right sided pneumonia - chest Xray 12/06 shows small right pleural effusion - got 20 mg IV lasix 12/08, will give another dose today - repeat chest Xray 12/09 showed bilateral pleural effusions, given one dose of 20 mg IV lasix - repeat chest X Ray 12/10 shows worsening right lung opacity. Has WBC of 21, will try clindamycin for treatment of pneumonia. He is s/p vanc/meropenem and levaquin from 10/29 to 12/06 AFib with RVR- controlled - s/p fluid bolus and IV digoxin. Troponin is downtrending. CT shows moderate effusion - continue oral digoxin - ECHO 11/29 showed mild MR, mild TR, EF 55-60 with diastolic dysfunction #Stage IV lung cancer with metastases to the right ribs, liver, spine, gluteal muscles - not candidate for chemotherapy per hem/onc Abdominal pain - possibly metastatic lesions of the liver vs portal vein thrombosis vs constipation - abd US showed minimal ascites. X ray showed gas and fecal material in the colon, minimally dilated small bowel loops. - CT abdomen with contrast showed moderate retained fecal material and some ileus. Worsening metastatic disease - also finding of portal vein thrombosis noted, but per GI did not seem like it and did not recommend anticoagulation - not candidate for further chemo - reorder miralax prn Hyponatremia- possibly SIADH - resolved - on tolvaptan - nephrology added salt tablets #Neutropenic fever - resolved. No fevers Anemia of chronic disease - iron panel consistent with anemia of chronic disease - Hb 10.1, stable Disposition: possibly d/c to swing bed tomorrow Code status: full code
[2019-12-10] MEDS: Clindamycin 150 MG CAP PO SCH (18:25)
[2019-12-10] MEDS: Atorvastatin Calcium 10 MG TAB PO SCH (20:55)
[2019-12-11] MEDS: Clindamycin 150 MG CAP PO SCH ×4 (01:32→18:08)
[2019-12-11 05:15] LABS: Anion Gap 12 mmol/L (10-20); BUN (Urea Nitrogen) 14 mg/dL (8.4-25.7); Calc. Creatinine Clearance 153 mL/min (70-130); Calcium 8.2 mg/dL (7.8-10.44); Carbon Dioxide 33 mmol/L (23-31); Chloride 95 mmol/L (98-107); Digoxin 1.07 ng/mL (0.8-2.0); Estimated GFR-MDRD Greater than 90; Glucose 101 mg/dL (80-115); Potassium 4.3 mmol/L (3.5-5.1); Sodium 136 mmol/L (136-145)
[2019-12-11] MEDS: Tamsulosin HCl 0.4 MG CAP PO SCH (08:24)
[2019-12-11] MEDS: Digoxin 0.25 MG TAB PO SCH (08:24)
[2019-12-11] MEDS: Sodium Chloride 1 GM TAB PO SCH ×2 (08:25→15:34)
[2019-12-11] MEDS: Dutasteride 0.5 MG CAP PO SCH (08:26)
[2019-12-11] MEDS: Metoprolol Tartrate 25 MG TAB PO SCH ×2 (08:26→20:07)
[2019-12-11] MEDS: Fish Oil 1,000 MG CAP PO SCH (08:27)
[2019-12-11] MEDS: Morphine ER 15 MG TAB PO SCH ×3 (08:27→20:06)
[2019-12-11] MEDS: Enoxaparin Sodium 40 MG/0.4 ML SYRINGE SC SCH (08:29)
[2019-12-11] MEDS: Tolvaptan 15 MG TAB PO SCH (08:33)
[2019-12-11] MEDS: Polyethylene Glycol 3350 17 GM Packet PO PRN (08:33)
[2019-12-11 10:51] LABS: Anisocytosis SLIGHT = 6-15 cells (100X) (0-5/hpf); Band 5 % (5-11); Hemoglobin 9.2 g/dL (14.0-18.0); MDiff Complete? YES; Mean Corpuscular HGB CONC 28.5 g/dL (32.0-36.0); Mean Corpuscular Hemoglobin 25.4 pg (27.0-31.0); Mean Corpuscular Volume 89.1 fL (78.0-98.0); Metamyelocyte 2 % (0-0); Monocytes 7 % (0-10); Neutrophil 85 % (42-75); Platelet Count 319 thou/uL (130-400); Poikilocytosis SLIGHT = 6-15 cells (100X) (0-5/hpf); RBC Distribution Width 20.2 % (11.5-14.5); Reactive Lymphocytes 1 % (0-10); Red Blood Cell (RBC) Count 3.61 mill/uL (4.70-6.10); Tear Drops SLIGHT = 2-5 cells (100X) (0-1/hpf); White Blood Cell (WBC) Count 17.2 thou/uL (4.8-10.8)
--- NOTE | 2019-12-11 11:12 | PDOC.MOPN ---
Interval History: weak, eating less. - Vital Signs Vital Signs: Vital Signs (12 hours) Temp Pulse Resp BP Pulse Ox 12/11/19 08:24 97 12/11/19 08:00 96.5 F L 108 H 18 109/91 H 97 12/11/19 03:57 98.6 F 111 H 17 113/66 95 Weight Admit Weight 174 lb 3 oz Weight 174 lb 3 oz - Physical Exam General: Alert, Oriented x3, No acute distress HEENT: Atraumatic, PERRLA, EOMI, Mucous membr. moist/pink Lungs: Clear to auscultation, Normal air movement Cardiovascular: Regular rate, Normal S1, Normal S2, No murmurs, Gallops, Rubs Abdomen: Other (ruq tenderness, mild) Extremities: No clubbing, No cyanosis, No edema, Normal pulses, No tenderness/ swelling Skin: No rashes, No breakdown, No significant lesion Neurological: Normal speech - Labs Result Diagrams: 12/11/19 10:13 12/11/19 04:21 Lab results: Laboratory Results - last 24 hr 12/11/19 10:13: WBC 17.2 H, RBC 3.61 L, Hgb 9.2 L, Hct 32.2 L, MCV 89.1, MCH 25.4 L, MCHC 28.5 L, RDW 20.2 H, Plt Count 319, MPV 8.0, Neutrophils % (Manual) 85 H, Band Neuts % (Manual) 5, Reactive Lymphs % 1, Monocytes % (Manual) 7, Metamyelocytes % (Man) 2 H, Poikilocytosis SLIGHT = 6-15 cells, Anisocytosis SLIGHT = 6-15 cells, Tear Drop Cells SLIGHT = 2-5 cells 12/11/19 04:21: Digoxin 1.07 12/11/19 04:21: Sodium 136, Potassium 4.3, Chloride 95 L, Carbon Dioxide 33 H, Anion Gap 12, BUN 14, Creatinine 0.53 L, Estimated GFR (MDRD) Greater than 90, Glucose 101, Calcium 8.2 Status: lab reviewed by me A/P - Problem (1) Lung cancer Current Visit: Yes Code(s): C34.90 - MALIGNANT NEOPLASM OF UNSP PART OF UNSP BRONCHUS OR LUNG Status: Acute (2) Hyponatremia Current Visit: No Code(s): E87.1 - HYPO-OSMOLALITY AND HYPONATREMIA Status: Acute - Plan Plan: Await transfer to SNF continue PT nutritional support
[2019-12-11] MEDS: Bisacodyl 10 MG SUPP PR PRN (15:34)
--- NOTE | 2019-12-11 16:35 | PRG ---
DATE OF SERVICE: 12/11/2019 SERVICE: Nephrology. SUBJECTIVE: This is a 64-year-old male with metastatic lung cancer, seen in followup for hyponatremia. The patient reports feeling better today and stronger as well. No nausea or vomiting. Discharge to long term facility is planned. OBJECTIVE: VITAL SIGNS: Temperature 96.5, pulse 81, respiratory rate 18, SpO2 of 95% on 1 L nasal cannula, and blood pressure is 130/70. GENERAL: Chronically ill-looking male, in no obvious distress. Afebrile. HEENT: Normocephalic and atraumatic. Oral mucosa is moist. CARDIOVASCULAR: Regular rhythm and rate with normal heart sounds 1 and 2. RESPIRATORY: Fair air entry bilaterally. Few transmitted breath sounds, but no obvious crackle or rhonchi. GI: Full, soft, and nontender with normal bowel sounds. EXTREMITIES: Mild bilateral leg edema noted. DIRECTOR LONG TERM CARE: Conscious, alert, and oriented x3 with appropriate mental status. DIAGNOSTIC DATA: CBC showed WBC count of 17.2, hemoglobin of 9.2, and platelet of 319. BMP today showed sodium of 136, potassium 4.3, chloride 95, CO2 of 33, BUN 14, creatinine 0.53, glucose 101, and calcium 8.2. ASSESSMENT: 1. Hyponatremia: Due to syndrome of inappropriate antidiuretic hormone secretion. Sodium level has improved greatly with Samsca and salt tablet. 2. Syndrome of inappropriate antidiuretic hormone secretion related to metastatic lung cancer as well as possible liver metastasis. 3. Metastatic lung cancer with metastasis to the brain and liver. 4. Protein-calorie malnutrition. PLAN: 1. The patient can be discharged from Nephrology point of view. 2. The patient needs to continue tolvaptan and salt tablet. Close followup in 2 weeks with repeat renal function panel is recommended. Job ID: [id number]
[2019-12-11 20:05] VITALS: BP 114/72; TEMP 97.6
[2019-12-11] MEDS: Atorvastatin Calcium 10 MG TAB PO SCH (20:06)
--- NOTE | 2019-12-12 13:08 | DIS ---
DATE OF ADMISSION: 11/26/2019 DATE OF DISCHARGE: 12/11/2019 DISCHARGE DIAGNOSES: 1. Acute hypoxic respiratory failure secondary to stage IV lung cancer versus right-sided pneumonia versus pleural effusion. 2. Atrial fibrillation with rapid ventricular response. 3. Stage IV lung cancer with metastases to the right ribs, liver, spine, gluteal muscles. 4. Abdominal pain. 5. Portal vein thrombosis. 6. Constipation. 7. Hyponatremia, possibly secondary to syndrome of inappropriate antidiuretic hormone. 8. Neutropenic fever. 9. Anemia of chronic disease. CONSULTATIONS: 1. Maria Victoria Moreira, WORKER'S COMPENSATION CLAIMS EXAMINER, with Oncology. 2. Dr. Sergei Tobias with Nephrology. 3. Dr. Rigoberto Shoemaker with GI. 4. Dr. Loy Ascencio with Cardiology. BRIEF HISTORY OF PRESENT ILLNESS: This is a 64-year-old male with a past medical history of stage IV lung cancer, on chemotherapy, who had presented to the emergency room with a near syncopal episode at home. The patient had gone for an outpatient chest x-ray and upon returning home, he was severely winded and fell to the ground. In the emergency room, he was placed on nasal cannula. CT scan of the head revealed osseous calvarial metastasis. Chest x-ray showed diminished lung volumes. The patient was admitted and started empirically on IV vancomycin and Zosyn. He was not noted to have a fever, but did have a low white count of 1.9. HOSPITAL COURSE: 1. Acute hypoxic respiratory failure likely from stage IV lung cancer versus pleural effusion versus right-sided pneumonia: The patient was initially started on IV vancomycin and meropenem due to neutropenia. He did not have any fevers. The patient underwent a CTA of his chest on the to rule out a PE, which showed a small right pleural effusion, new djzwn-[id number] size pericardial effusion, and some ascites. ECHO showed that the effusion was actually a trivial pericardial effusion. The patient did receive a few doses of Lasix, however, this was discontinued due to his low sodium levels. The patient was treated with IV vancomycin and meropenem and was switched to Levaquin, which he received from to 12/06. On 12/09, the patient had a repeat chest x-ray, which showed bilateral pleural effusions and he was given 1 dose of 20 mg IV Lasix. Further dose of Lasix was held due to the patient reporting some dizziness. Repeat chest x-ray on showed possible worsening right lung infiltrate. Due to increase in his white blood cell count of 21, he was started on clindamycin for treatment of a possible pneumonia. The patient was on 3 to 4 L of oxygen and eventually weaned down to 1 L of oxygen. Subjectively, the patient states he feels better with 2 L of oxygen. This can be increased at the discretion of rehab attending. The patient will be discharged on clindamycin for additional 6 days to complete a 7-day course of antibiotics. The patient was also told that he most likely will be chronically short of breath since Oncology felt that his lung cancer is no longer treatable with chemotherapy unless he gets stronger. 2. Atrial fibrillation with RVR: The patient had an episode with heart rate up in the 200s on 12/06. He was given IV digoxin and IV fluids with improvement. Cardiology was consulted and the patient was started on digoxin and metoprolol 12.5 mg p.o. b.i.d. due to soft blood pressures. The patient did continue to have some episodes with heart rates in the 180s in the mornings. However, this eventually resolved after he was given a dose of Lasix on 12/09. Troponins peaked at 0.144. Cardiology did not feel that this is a type-1 NSTEMI. An echo showed no wall motion abnormalities and an EF of 55% to 60% with diastolic dysfunction. The patient should follow up with Dr. Ascencio as an outpatient. 3. Stage IV lung cancer with metastases to the right ribs, liver, spine, gluteal muscles: This was noted on a CTA of his chest. Oncology was consulted and the patient was thought to no longer be a candidate for chemotherapy and did possibly recommend hospice. However, the patient wants to see if he will get stronger at rehab and before seeking hospice. 4. Abdominal pain secondary to liver metastases: The patient reported persistent complaints of abdominal pain and tightness. His initial CTA of his chest showed ascites in his abdomen. However , serial abdominal ultrasounds showed no evidence of significant ascites. Abdominal x-ray had showed some gas and fecal material in his colon and minimally dilated small bowel loops. Therefore, the patient was given MiraLAX with improvement. The patient did have a CT scan of his abdomen, which showed worsening metastatic disease in his liver. He also was noted to have a portal vein thrombosis. GI was consulted, did not feel like he was a candidate for anticoagulation. His pain is most likely secondary to his liver metastases. He was discharged on his home narcotics of 45 morphine t.i.d. 5. Hyponatremia: This is most likely secondary to syndrome of inappropriate antidiuretic hormone. The patient had a Nephrology consultation. His sodium on admission was initially 120. He was placed on free water restriction with improvement in his sodium. He was also started on tolvaptan and salt tablets in the hospital. After discussion with Dr. Tobias, his tolvaptan was discontinued due to expense as an outpatient and he was told to take salt tablets only once a day since the patient was noted to have some edema from the salt tablets. He will follow up with Dr. Houston in a week and have a repeat BMP. 6. Anemia of chronic disease: The patient has a hemoglobin of 10.1. His iron panel showed a ferritin level of 2131 with iron saturation of 13, low TIBC and low iron. The patient can have this worked up further as an outpatient. DISCHARGE PHYSICAL EXAMINATION VITAL SIGNS: Temperature 97.6, heart rate 103, respiratory rate 18, O2 saturation 97% on 2 L nasal cannula. GENERAL: The patient is alert, awake, oriented x3. He is lying in bed. He is slightly pale. CVS: Regular rate and rhythm with no murmurs, rubs, or gallops. LUNGS: Clear to auscultation bilaterally. ABDOMEN: The patient has positive bowel sounds. He has right upper quadrant tenderness on exam with mild distention. EXTREMITIES: He has 2+ edema. PERTINENT LABORATORY DATA: CBC on 12/11: White count 17.2, which is down from 21.2 on the 4th; hemoglobin 9.2; platelets 319. BMP on 12/11: Shows a sodium of 136, chloride of 95, carbon dioxide of 33. LFTs: AST 58, ALT 29, alkaline phosphatase 269. Troponin I: 0.137, 0.144, 0.062. Vitamin B12: Greater than 2000. Folate: 15. Urine osmolality: 441. PERTINENT IMAGING: Chest x-ray on 11/26: Postobstructive atelectasis. CT of brain on 11/26: Osseous metastasis involving the occipital calvarium. CTA of thorax on 11/27: Shows no evidence of PE. No dissection. Very small right pleural effusion and new small left pleural effusion. Bronchial obstruction in the anterior segment of the right upper lobe. Chronic narrowing of the proximal branch of the right middle lobe bronchus, mild probable right hilar lymphadenopathy. New cqxrk-xa-ohyqiwnk size pericardial effusion. Ascites. Very severe metastatic disease in the liver. Metastatic destructive osseous lesions involving the right ribs. Chest x-ray on 11/28: Stable right hilar mass. Abdominal ultrasound on 11/28: No significant ascites. Brain MRI on 11/28: No acute infarct. Abdominal ultrasound on 11/07: Minimal free intraperitoneal fluid greater in the right lower quadrant. Very minimal fluid in the left lower quadrant. Chest x-ray on 12/06: New small right pleural effusion. Abdominal x-ray on 12/06: New small right pleural effusion. CT of abdomen and pelvis on 12/06: Gas and fecal material in the colon. Several minimally dilated small bowel loops, possibly a small ileus. Chest x-ray on 12/09: Heart size is normal. CT of abdomen and pelvis on 12/06: Complete occlusion of the left main portal vein. Gallbladder sludge. 1.4 cm right adrenal metastatic lesion. Worsening diffuse hepatic metastatic disease. Stable moderate pericardial effusion. Worsening moderate bilateral pleural effusions. Osteolytic and osteoblastic metastatic disease. Chest x-ray on 12/10: No effusions. Echo on 11/29: EF 55% to 60%. Diastolic dysfunction. Mild MR. Mild TR. Trivial pericardial effusion. DISCHARGE CONDITION: Stable on 2 L of oxygen to a [facility] in [place]. ACTIVITY: As tolerated. DIET: Heart healthy diet. The patient should have a free water restriction of 2 L. DISCHARGE MEDICATIONS: New prescriptions: 1. Clindamycin 300 mg p.o. q.6 hours for 6 days. 2. Dulcolax 10 mg suppository IN daily p.r.n. 3. Digoxin 0.25 mg p.o. daily. 4. Metoprolol 12.5 mg p.o. b.i.d. 5. MiraLAX 17 g packet p.o. daily. 6. Simethicone 80 mg p.o. a.c. and at bedtime. 7. Sodium chloride 1 g p.o. daily. All other home medications were resumed. Please refer to discharge worksheet. DISCHARGE INSTRUCTIONS: The patient is to follow up with PCP in a week. He will be discharged to [facility] in [facility]. If the patient is to get stronger, he should follow up with Dr. Moreira for consideration of re-initiation of chemotherapy. Please follow up with Dr. Francy Houston in 1 week with repeat sodium level. Consider getting a repeat chest x-ray to evaluate improvement in pneumonia. Follow up with Dr. Ascencio in a week with regard to atrial fibrillation and pericardial effusion. Job ID: [id number] [facility]
--- NOTE | 2019-12-13 07:50 | PQF ---
SABINO BAER UMA [id number] CLINICAL DOCUMENTATION CLARIFICATION FORM: POST DISCHARGE Addendum to original discharge summary date: ____ Late entry note date: __ DATE:12/13/2019 ATTN:ROSIE IGLESIAS Please exercise your independent, professional judgment in responding to the clarification form. Clinical indicators are provided on the bottom of this form for your review Please check appropriate box(s): Kindly clarify the pleural effusion etiology [ X ] Pleural effusion due to Lung cancer [ ] Pleural effusion due to Pneumonia [ ] Other diagnosis [ ] Unable to determine For continuity of documentation, please document condition throughout progress notes and discharge summary. Thank You. CLINICAL INDICATORS - SIGNS / SYMPTOMS / LABS Acute hypoxic respiratory failure secondary to stage IV lung cancer versus right sided pneumonia versus pleural effusion-Documented in discharge summary on 12/11 by Tad Turner MD Stage IV lung cancer with metastases to the right ribs, liver, spine ,gluteal muscles-Documented in discharge summary on 12/11 by Tad Turner MD On 12/09 the patient had a repeat chest X ray , Which showed bilateral pleural effusion and he was given 1 dose of 20 mg IV lasix-Documented in discharge summary on 12/11 by Tad Turner MD RISK FACTORS Acute hypoxic respiratory failure secondary to stage IV lung cancer versus right sided pneumonia versus pleural effusion-Documented in discharge summary on 12/11 by Tad Turner MD TREATMENTS: The patient did receive a few dose of Lasix-Documented in discharge summary on 12/11 by Tad Turner MD The patient was treated with IV vancomycin and meropenem and was switched to levaquin which was he recived from 10/29 to 12/06-Documented in discharge summary on 12/11 by Tad Turner MD Oncology was consulted and the patient was thought to no longer be a candidate for chemotherapy and did possibly recommend hospice -Documented in discharge summary on 12/11 by Tad Turner MD [employer] Host/Hostess [employer] (This form is maintained as a part of the permanent medical record) 2014 [employer]. All Rights Reserved [email or web address]
== END 2019-12-11 20:15 | disposition swing bed (61) | DRG 180 ==
LOC: ERS 17:56 → ONC 22:52 → 2NO 12-06 09:29
PROVIDERS: ADMIT Emergency Medicine; ATTEND Emergency Medicine
DX: C34.90 Malignant neoplasm of unspecified part of unspecified bronchus or lung (principal); J18.9 Pneumonia, unspecified organism; J96.01 Acute respiratory failure with hypoxia; G93.41 Metabolic encephalopathy; I21.A1 Myocardial infarction type 2; I81 Portal vein thrombosis; E87.2 Acidosis; C78.7 Secondary malignant neoplasm of liver and intrahepatic bile duct; C79.71 Secondary malignant neoplasm of right adrenal gland; C79.51 Secondary malignant neoplasm of bone; C79.89 Secondary malignant neoplasm of other specified sites; I31.3 Pericardial effusion (noninflammatory); J98.11 Atelectasis; R18.8 Other ascites; E22.2 Syndrome of inappropriate secretion of antidiuretic hormone; E46 Unspecified protein-calorie malnutrition; C79.31 Secondary malignant neoplasm of brain; I47.1 Supraventricular tachycardia; J91.0 Malignant pleural effusion; D70.9 Neutropenia, unspecified; D63.8 Anemia in other chronic diseases classified elsewhere; R50.81 Fever presenting with conditions classified elsewhere; I10 Essential (primary) hypertension; G89.3 Neoplasm related pain (acute) (chronic); E86.0 Dehydration; T45.1X5A Adverse effect of antineoplastic and immunosuppressive drugs, initial encounter; R41.0 Disorientation, unspecified; I48.91 Unspecified atrial fibrillation; E78.5 Hyperlipidemia, unspecified; K59.00 Constipation, unspecified
CPT/HCPCS: 36415; 51701; 70450; 70551; 71045; 71275; 74019; 74177; 76705; 80048; 80053; 80069; 80162; 80202; 80400; 82550; 82553; 82607; 82728; 82746; 83540; 83550; 83605; 83735; 83880; 83930; 83935; 84484; 85007; 85025; 85027; 85610; 85730; 87040; 93005; 93010; 93306; 96361; 96365; 96367; 99213; G0463; J0834; J1160; J1650; J1940; J2185; J2543; J3370; J3475; J7050; Q9967